=== PATIENT | female | born 1945 | race Caucasian/White ===

== ENCOUNTER 2024-02-06 16:27 | Emergency (ER) | payer MEDICARE, BC, SELFPAY ==
[2024-02-06 16:27] VITALS: BMI 24.5
[2024-02-06 16:30] VITALS: BP 130/66
[2024-02-06 17:16] LABS: % Basophils 0.2 % (0-2); % Eosinophils 1.4 % (0-6); % Immature Granulocytes 0.3 % (0-0.5); % Monocytes 6.4 % (1.7-9.3); % Neutrophils 58.7 % (42.2-75.2); Absolute Eosinophils 0.1 10^3/uL (0-0.7); Absolute Lymphocytes 2.1 10^3/uL (1.2-3.4); Absolute Monocytes 0.4 10^3/uL (0.1-0.6); Absolute Neutrophils 3.6 10^3/uL (1.4-6.5); Hematocrit 37.8 % (37.0-47.0); Hemoglobin 12.8 g/dL (12.0-16.0); Mean Corp Hgb Conc. 33.9 g/dL (33.0-37.0); Mean Corpuscular Hgb 34.2 pg (27.0-31.0); Mean Corpuscular Volume 101.1 fL (81.0-99.0); Mean Platelet Volume 10.9 fL (7.4-10.4); Nucleated Red Blood Cells % 0 %; Platelet Count 113 10^3/uL (130-400); Red Blood Cell Count 3.74 10^6/uL (4.20-5.40); Red Cell Dist. Width 12.7 % (11.5-14.5); White Blood Cell Count 6.2 10^3/uL (4.8-10.8)
[2024-02-06 17:21] LABS: Blood Urea Nitrogen 21 mg/dl (7-17); Calcium 10.3 mg/dl (8.4-10.2); Carbon Dioxide 30 mmol/L (22-30); Chloride 103 mmol/L (98-107); Glucose 154 mg/dl (70-99); Potassium 4.3 mmol/L (3.5-5.1); Sodium 139 mmol/L (135-145); eGFR > 60.00
[2024-02-06 17:28] LABS: Alcohol None Detected
[2024-02-06 19:42] LABS: Urine Albumin Negative (Neg - Trace); Urine Bilirubin Negative (Negative); Urine Character Clear (Clear); Urine Color Yellow; Urine Glucose Negative (Negative); Urine Ketone Negative (Negative); Urine Leukocyte Trace (Negative); Urine Nitrite Negative (Negative); Urine Occult Blood Negative (Negative); Urine Specific Gravity 1.015 (<1.030); Urine Urobilinogen Negative (Neg - 1+)
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
[2024-02-06 20:01] LABS: Urine Squamous Cell >30 /LPF (Few)
[2024-02-06 20:02] LABS: Urine Bacteria Few (Negative); Urine Red Blood Cell 0-2 /HPF (0-2)
[2024-02-06 20:08] LABS: Amphetamines Negative (Negative); Barbiturates Negative (Negative); Benzodiazepines Negative (Negative); Buprenorphine Negative (Negative); Cocaine Negative (Negative); Marijuana Negative (Negative); Methadone Negative (Negative); Methamphetamines Negative (Negative); Opiates Negative (Negative); Phencyclidine Negative (Negative); Tricyclic Antidepressants Negative (Negative)
[2024-02-06 20:40] VITALS: BP 126/59
[2024-02-07 08:17] VITALS: BP 141/64
--- NOTE | 2024-02-07 11:49 | CM ---
Addendum entered by Giles Solano 02/07/24 14:50:
Psychiatry evaluation noted -inpatient psychiatric level of care recommended.
CM discussed it with pt and her family and following inpatient psychiatric hospitals preferred: [facility], [facility]. [facility]. A referral to above inpatient psychiatric hospitals made.
Per MD, precision layout worker will step in to place the pt to inpatient psychiatric hospital.
CM met with Crisis team, updated them on discharge plan progress and crisis workes Maricel is assigned to pt's case.
CM met with pt and her family and they were notified on discharge plan progress.
D/C plan: Inpatient psychiatric hospital level of care.
Crisis team following. CM will sign off and will be available as needed.
Original Note:
CM following re: discharge planning.
CM consulted to assist pt with discharge planning in ED.
Reviewed pt's chart, met with pt, spoke to pt's over the phone this morning and met with him a few minutes ago, met with pt's son Elmer and daughter in Law Tabby.
Pt is an 79 year old female, arrived to ED for evaluation secondary to more frequent/worsening paranoia and visual hallucination.
Pt presents lying in the stretcher with depressed mood, sad and tearful affect, limited insight, poor judgement. Pt was not able to recall today's day, knew month and year. Pt stated: 'i love my and I thought that he is walking away from me
but actually i left him and i am here now, i love him and i missed him, can I hold your hand, i know i was not nice to you and i don not know what wrong with me'. Emotional support with reassurance offered and provided. pt went to tears saying how
much she loves her .
Pr he and his spouse live in an independent apartment at [facility], this is their second marriage and together they have 7 children from both marriages. All children live out of state and only son José lives with his family in [place]
area. Per , pt is independent in all areas [employer]. Per , pt has became very paranoid recently, feels other people are stealing from her, her has a girlfriend and she see sees that girlfriend. Per when he tried to approach
her with explanation she became annoyingly upset and even violent. Per pt's psychiatrist prescribed 1mg of Risperidone, he got meds from the pharmacy yesterday and pt did not take yet.
Per pt's son, pt definitely had OCD, undiagnosed and she was very controlling person. Per son, he is worry about her managing her medications and from other side, pt is very attached to him and she will not adjust easily to be away from him.
Both pt and her family are notified that psychiatrist will evaluate the pt to determine a level of care: inpatient psychiatric level of care or outpatient psychiatrist follow up. Pt's son stated given the fact that pt's might not be able to
manage accurately pt's behavior and medications at home he feels that inpatient psychiatric level of care might be a good idea and pt's family will relay on psychiatrist recommendations. Per son, if inpatient psychiatric hospital level of care
recommended he preferred [facility], [facility] or [facility]. per son, pt will sign 201 if needed.
Awaiting psychiatric evaluation and recommendations.
D/C plan: most likely inpatient psychiatric level of care. Awaiting for Psychiatry evaluation.
--- NOTE | 2024-02-07 13:25 | CS.PSYCHR ---
Consult Summary - Psychiatry
-
Pt is 79 yo female who presented from [facility], referred by PCP due to concern for potential elopement, agitated/trying to leave. Pt seen with son, who provided history due to pt's dementia. Pt moved there 6 weeks ago, which has
been stressful. Pt reportedly having visual hallucinations, paranoid ideation, bouts of anxiety/agitation. Pt also presents with some depression, sadness, stating she does not see her children or grandchildren as much. Pt admits to seeing
'caricatures' with faces that change, for example into pirates. Pt has some awareness that these are not real, but appears to be having difficulty discerning reality, states the VH are upsetting. Pt able to talk about the loss of her home and
belongings, had to give away items that were passed down in her family when she moved. Currently, pt is cooperative, calm, trying to answer questions, with limited ability to give relevant information.
PMH: type II Diabetes per pt
Psych Hx: diagnosed with dementia per pt's son. No other significant history. Pt was recently prescribed Risperidone 1 mg HS, but had not started taking it yet
SH: , lives with . No substance use reported
MSE: alert, oriented to self, making eye contact, pleasant this morning. Pt reports episodic visual hallucinations, no overt signs at present. Pt denies SI. Mood is sad, affect tearful at times. Insight limited
Imp: Unspecified psychotic d/o, with hallucinations
Dementia, with behavior disturbance
Unspecified Depressive d/o
Rec: will pursue Erica-psych placement- reviewed with Crisis staff; although the family does not want the pt held in ER overnight if placement is not available
will follow
[2024-02-07 16:00] LABS: COVID-19 Antigen Negative (Negative)
[2024-02-07 18:45] VITALS: BP 125/60
== END 2024-02-07 19:58 ==
LOC: EMR 16:27
PROVIDERS: Emergency Medicine; CONSULT PHYSICIAN Psychiatry & Neurology Psychiatry; EMERGENCY PHYSICIAN Emergency Medicine
DX: F03.918 Unspecified dementia, unspecified severity, with other behavioral disturbance (principal); F03.92 Unspecified dementia, unspecified severity, with psychotic disturbance; E11.9 Type 2 diabetes mellitus without complications; F32.A Depression, unspecified
CPT/HCPCS: 99284; 70450; 71046; 73060; 73090; 80048; 80306; 81003; 81015; 82077; 85025; 87811; 93005

== ENCOUNTER 2024-04-27 08:56 | Inpatient (IN) | payer MEDICARE, BC, SELFPAY ==
[2024-04-23] VITALS (14 sets, daily range): BP systolic 123–163; BP diastolic 54–84; PULSE 59; O2SAT 98; BMI 23.8; BMI 23.0
--- NOTE | 2024-04-23 08:32 | ED.GENMED ---
History of Present Illness
General
Chief Complaint: Fall
Source: patient, spouse and ambulance crew
Time Seen by Provider: 04/23/24 08:20
History of Present Illness
History of Present Illness:
79yoF with a history of dementia, atrial fibrillation on Eliquis, hypertension, hyperlipidemia, and type 2 diabetes presenting via EMS for evaluation after a fall. Patient currently resides with her at [facility]. History is
provided by her . Patient was walking to go to bed last night around 11pm-midnight. She was holding onto her and let go. She slid against the fall and fell onto the floor. states the fall seemed minor. He was unable to get up
her and let her sleep on the floor. He called family this morning around 7am and EMS was activated. She has been having frequent falls over the past week. states she seems very weak over the past few days and her dementia seems to be
worsening.
Phy Exam
Physical Exam
Physical Exam:
Patient keeps eyes closed throughout majority of exam
General Physical Exam
General Presentation: no apparent distress
General age: appears stated age
General Skin: warm and dry
General Habitus: elderly
General Mental: alert
ENT Exam
Additional ENT: No external signs of head trauma
Eye Exam
Eye Exam: PERRL
Cardiovascular Exam
Cardiovascular Exam: regular rate/rhythm and no edema
Pulmonary Exam
Pulmonary Exam: lungs clear, no respiratory distress, no crackles and no wheezing
Gastrointestinal Exam
Gastrointestinal Exam: non tender, soft and non distended
Johnson Coma Scale
Eye Opening: Spontaneous
Verbal Response: Confused
Motor Response: Obeys Commands
GCS Total Score: 14
Musculoskeletal Exam
Musculoskeletal Exam: other (No C/T/L spine tenderness)
Skin Exam
Skin Exam: other (Ecchymosis noted to R upper arm and L forearm)
Course
Orders/Labs/Results
Orders:
Orders
04/23/24 Breakfast
Cholesterol Lowering
At Your Request: Non-Participating
Cholesterol Lowering: Sodium, 2 Gram
04/23/24 08:29
Electrocardiogram (*1) Urgent
Reason for Study: Other
Other Reason for Exam: fall
CT Cervical Spine W/o Iv Contr Urgent
Comment:
Reason For Exam: Unwitnessed fall
Cardiac Monitoring- Treatment ONCE
EKG- Treatment ONCE
CR Humerus - Left Min 2 Views* Urgent
Comment:
Reason For Exam: fall
CR Humerus - Right Min 2 View* Urgent
Comment:
Reason For Exam: fall
Forearm, Left 2 View [CR Forearm - Left 2 View] Urgent
Comment:
Reason For Exam: fall
Forearm, Right 2 View [CR Forearm - Right 2 View] Urgent
Comment:
Reason For Exam: fall
04/23/24 08:30
CR Chest - 2 Views Urgent
Comment:
Reason For Exam: Unwitnessed fall
04/23/24 08:47
CT Head W/o Iv Contrast Urgent
Comment:
Reason For Exam: Unwitnessed fall
04/23/24 08:55
Complete Blood Count/With Diff Urgent
Comprehensive Metabolic Panel Urgent
TSH Reflex To Free T4 Urgent
Comment: ADD ON
Total CK [Creatine Phosphokinase] Urgent
Troponin I Urgent
Urinalysis Reflex To Culture Urgent
Date Specimen was Collected: 04/23/24
Time Specimen was Collected: 08:54
Urine Microscopic Reflex Cult Urgent
Urine Culture Urgent
CHELSEA Source: U
Specimen Description:
Date Specimen was Collected: 04/23/24
Time Specimen was Collected: 08:54
04/23/24 10:10
Case Management Consult ONCE
Case Management Consult: Discharge Planning
Pt Eval And Treat Urgent
Activity Level: Out of Bed- Ad Dianne
04/23/24 11:44
Cephalexin Monohydrate [Keflex] 500 mg PO NOW STA
04/23/24 15:34
Admit/Transfer Patient As Directed
Co-Sign Provider:
Level of Care: Observation services
Assign to:: Medical/Surgical
Physician / Group: teresaricha/medicine
Diagnosis: fall/placement
Expected length of stay greater than two midnights?: Yes
ELOS- Estimated Length of Stay in days: 3
I certify the patient meets the requirements for IP care: Yes
PRN Pain Medication Management As Directed
May give lesser potent ordered pain med per pt: Yes
preference::
Protocol:: Medication orders for pain may be administered in a
manner that supports deferring to patient preference
when the pt is:
- Requesting an ordered lesser potent pain medication.
Least to most potent pain medications are defined
as: acetaminophen < NSAID < tramadol < opioids
(morphine, oxycodone, hydromorphone).
- Requesting a lesser dose of the same medication IF
ORDERED.
- Requesting a less intrusive route of administration
if both routes are prescribed by the provider (PO <
IV).
04/23/24 15:38
UA Reflex to Culture [Urinalysis Reflex To Culture] Urgent
Straight Cath As Directed
Frequency: One time now
04/23/24 15:43
Code Status As Directed
Resuscitation Status: Full Code
04/23/24 15:57
Add On- LAB Routine
Tests Added?: cpk
04/23/24 15:58
Add On- LAB Routine
Tests Added?: tsh with reflex free t4
04/23/24 17:13
Bisacodyl [Dulcolax] 10 mg RECTAL [id number] PRN
Docusate W/Senna [Senokot-S] 1 tablet PO BIDPRN PRN
Insulin Aspart Corrective Low [Novolog Flexpen-Low Resistance] See Protocol SC AC
Lactated Ringers [Lr] 1,000 ml IV 75 mls/hr
Polyethylene Glycol Powder [Miralax] 17 grams PO DAILYPRN PRN
04/23/24 17:13
COVID-19 Antigen Routine
Source: Nasal Swab
TSH Reflex To Free T4 Routine
Activity As Directed
Activity Level: As Tolerated
Vital Signs As Directed
Frequency: Per unit guidelines
Ot Eval And Treat Routine
Pt Eval And Treat Routine
Activity Level: As Tolerated
04/23/24 17:19
Clonazepam [Klonopin] 0.25 mg PO BIDPRN PRN
04/23/24 20:00
Apixaban [Eliquis] 5 mg PO BID
Risperidone [Risperdal] 1 mg PO BID
04/23/24 22:00
Atorvastatin [Lipitor] 40 mg PO HS
04/24/24 06:00
Complete Blood Count/No Diff IN AM
Comprehensive Metabolic Panel IN AM
Magnesium IN AM
04/24/24 08:00
Atenolol [Tenormin] 50 mg PO DAILY
Lisinopril [Zestril] 5 mg PO DAILY
Metformin Extended Release [Glucophage Xr Extended Release] 1,000 mg PO DAILY
Abnormal Lab Results
04/23/24
08:55
WBC 3.4 L 10^3/uL
(4.8-10.8)
RBC 3.56 L 10^6/uL
(4.20-5.40)
Hct 33.7 L %
(37.0-47.0)
MCH 33.7 H pg
(27.0-31.0)
Plt Count 94 L 10^3/uL
(130-400)
Absolute Lymphs (auto) 0.8 L 10^3/uL
(1.2-3.4)
Eosinophils % 6.6 H %
(0-6)
Carbon Dioxide 34 H mmol/L
(22-30)
Glucose 268 H mg/dl
(70-99)
Total Protein 5.5 L g/dl
(6.3-8.2)
Albumin 3.4 L g/dl
(3.5-5.0)
Leukocyte Esterase Rfl 2+ A
(Negative)
Urine RBC 3-6 A /HPF
(0-2)
Urine WBC (Reflex) 11-15 A /HPF
(0-5)
Urine Bacteria (Reflex) Few A
(Negative)
Urine Glucose 3+ A
(Negative)
04/23/24 08:55
04/23/24 08:55
Vital Signs
Initial and Last Documented VS:
Initial Vital Signs
Pulse Resp
69 14
04/23/24 08:25 04/23/24 08:25
Last Documented Vital Signs
Temp Pulse Resp BP Pulse Ox
97.8 F 80 17 149/66 99
04/23/24 17:25 04/23/24 17:25 04/23/24 17:25 04/23/24 17:25 04/23/24 17:25
MDM/Problems Addressed
Differential Diagnosis Includes:
79yoF here after a fall last night. Patient on the floor all night. Frequent falls over the past 1-2 weeks. Hx of dementia. She is afebrile and hemodynamically stable. She is alert and answers questions on exam. Ecchymosis noted to bilateral arms.
No other injuries seen on exam. Differential diagnosis includes but is not limited to: progression of dementia, ambulatory dysfunction, UTI, rhabdomyolysis
Initial ED plan: Check cardiac labs, CK, UA, EKG, bilateral arm x-rays, CT head, and CT cervical spine.
*EKG
Interpreted by ED Provider?: Yes
EKG Intrepretation Date: 04/23/24
EKG Intrepretation Time: 08:50
Heart Rate: 56
Rate: bradycardiac
Rhythm: sinus
Knox: normal axis
Interval: normal interval
QRS Pattern: normal QRS
Ischemia: no ischemia
*Critical Care Note
Total Time (30-74mins, 75-104mins- exclusive of procedures): Not Applicable
Update Note
Update Note:
No traumatic injuries seen on imaging. Labs unremarkable including normal CK. UA with 2+ leukocytes and dose of Keflex ordered. Patient evaluated by physical therapy who recommend SNF placement. Case management unable to place patient and she was
admitted for further management.
ED Attending Note
-
Portions of this chart may have been created with voice recognition software.� Occasional wrong word or��sound alike� substitutions may have occurred due to the inherent limitations of voice recognition software.
Discharge Plan
Departure
Patient Disposition: Admit
Date of Disposition: 04/23/24
Time of Disposition: 13:02
Presentation/result/management discussed w/ accepting MD/DO: Hospitalist
Discharge Problem:
Generalized weakness, Frequent falls
Interventions
Interventions:
*Risk Screen - Suicide Last Done: 04/23/24 08:42
*General Assessment Last Done: 04/23/24 08:40
*Neglect/Abuse Screening Last Done: 04/23/24 08:40
ED- Fall Risk Assessment Last Done: 04/23/24 15:35
*ED COVID-19 Vaccine History Last Done: 04/23/24 08:40
*Nursing Disposition Last Done: 04/23/24 17:14
ED-Musculoskeletal Assessment Last Done: 04/23/24 09:23
ED- Neurological Assessment Last Done: 04/23/24 09:23
ED-Skin Assessment Last Done: 04/23/24 09:23
Discharge Date and Time
Discharge Date/Time: 04/23/24 17:10
[2024-04-23 09:10] LABS: Urine Albumin Negative (Neg - Trace); Urine Bilirubin Negative (Negative); Urine Character Clear (Clear); Urine Color Yellow; Urine Glucose 3+ (Negative); Urine Ketone Negative (Negative); Urine Leukocyte 2+ (Negative); Urine Nitrite Negative (Negative); Urine Occult Blood Negative (Negative); Urine Specific Gravity 1.015 (<1.030); Urine Urobilinogen Negative (Neg - 1+)
[2024-04-23 09:24] LABS: % Basophils 0.3 % (0-2); % Eosinophils 6.6 % (0-6); % Immature Granulocytes 0.3 % (0-0.5); % Lymphocytes 22.7 % (20.5-51.1); % Monocytes 6.9 % (1.7-9.3); % Neutrophils 63.2 % (42.2-75.2); Absolute Eosinophils 0.2 10^3/uL (0-0.7); Absolute Lymphocytes 0.8 10^3/uL (1.2-3.4); Absolute Monocytes 0.2 10^3/uL (0.1-0.6); Absolute Neutrophils 2.1 10^3/uL (1.4-6.5); Hematocrit 33.7 % (37.0-47.0); Mean Corp Hgb Conc. 35.6 g/dL (33.0-37.0); Mean Corpuscular Hgb 33.7 pg (27.0-31.0); Mean Corpuscular Volume 94.7 fL (81.0-99.0); Mean Platelet Volume 10.4 fL (7.4-10.4); Nucleated Red Blood Cells % 0 %; Platelet Count 94 10^3/uL (130-400); Red Blood Cell Count 3.56 10^6/uL (4.20-5.40); Red Cell Dist. Width 13.2 % (11.5-14.5); White Blood Cell Count 3.4 10^3/uL (4.8-10.8)
[2024-04-23 09:27] LABS: Urine Squamous Cell 16-20 /LPF (Few)
[2024-04-23 09:29] LABS: Urine Bacteria Few (Negative)
[2024-04-23 09:34] LABS: ALT (SGPT) 22 U/L (0-35); AST (SGOT) 26 U/L (14-36); Albumin 3.4 g/dl (3.5-5.0); Alkaline Phosphatase 107 U/L (38-126); Blood Urea Nitrogen 16 mg/dl (7-17); Calcium 10.1 mg/dl (8.4-10.2); Carbon Dioxide 34 mmol/L (22-30); Chloride 100 mmol/L (98-107); Estimated Creatinine Clearance 57 ml/min; Glucose 268 mg/dl (70-99); Potassium 4.2 mmol/L (3.5-5.1); Sodium 139 mmol/L (135-145); Total Bilirubin 1.2 mg/dl (0.2-1.3); Total Protein 5.5 g/dl (6.3-8.2); eGFR > 60.00
[2024-04-23 09:45] LABS: Creatine Phosphokinase 92 U/L (30-135)
[2024-04-23 09:46] LABS: Troponin I < 0.012 ng/ml
[2024-04-23] MEDS: KEFLEX 500 MG PO (12:00)
--- NOTE | 2024-04-23 12:51 | CM ---
CM consulted in ED for dc planning
Per PT eval- SNF recommendations
Bedside meeting with pt and her spouse
She slept through meeting- spouse deferred planning to her son/POA Chris
Call with Chris/son POA [phone]
Pt and her second reside at [facility]
She is typically independent with use of a SPC/WW as needed
Pt with dementia and recent dixon-psych stay at [facility] for in January 2024, unsure of 201 vs 302
She is set up with a community housing counselor
Pt has a private duty biztalk developer, family with plans to increase to ENVIRONMENTAL MARKETER while LT plans are implementedfor a higher level of care
Of note, spouse is step-father to her sons
Family requesting SNF be arranged. spouse unable to provide adequate care at home due to cognition and physical limitations
Aware likely will be private pay as pt without qualifying stay
PASRR screen completed
Pt also does not qualify for 30 day exception from ED or OBS status, will require level II
Son aware and provided verbal consents for evaluation
Update to Dr Belle/Carlita ED PA
Referral sent via [facility] to [facility]
Psych eval requested for level II assessment
Discharge Disposition- [facility] pending bed availability private pay, level II assessment pending
--- NOTE | 2024-04-23 15:50 | HPS.HSE ---
Family Physician
-
Family Physician: PHYSICIAN PRIVATE
Chief Complaint
-
falls
History of Present Illness
79-year-old female with past medical history of dementia, atrial fibrillation on Eliquis, hypertension, hyperlipidemia, type 2 diabetes presenting after fall. Patient is independent living. As per , patient was walking to the bed last night
while holding onto her and let go. Patient subsequently slid and fell onto the floor. No obvious head strike. was unable to left patient from the floor and therefore let her sleep on the floor. EMS was called this morning the
patient was subsequently sent to the hospital. Of note, frequent falls of the last week, appears to be more weaker and her dementia may be worsening as per . No obvious urinary symptoms although patient history is unremarkable. Labs
grossly unremarkable. UA unequivocal, dirty sample. Head CT unremarkable for acute pathology. No acute findings on radiologic imaging. No obvious fractures.
Medical History
Past Medical History
Past Medical History: Reports Other
Additional Past Medical History:
dementia, atrial fibrillation on Eliquis, hypertension, hyperlipidemia, type 2 diabetes presenting after fall.
Past Surgical History: Reports None and Other
Social History
Tobacco: Non-smoker
Alcohol: None
Drug: None
Personal:
Living: With Family
Employment: Not Employed
Family History
Family History: Not pertinent
Allergies / Home Medications
Allergies reflects when Allergies were last updated in [facility].
Home Medications with original date entered in [facility]
Allergy/Medication List:
Allergies
Allergy/AdvReac Type Severity Reaction Status Date / Time
No Known Allergies Allergy Verified 04/23/24 08:23
Home Medications
apixaban 5 mg tablet (Eliquis) 5 mg PO BID Blood Clot Prevention/Tx 04/23/24
atenolol 50 mg tablet 50 mg PO DAILY Blood Pressure 04/23/24
atorvastatin 40 mg tablet (Lipitor) 40 mg PO HS High Cholesterol 04/23/24
clonazepam 0.5 mg tablet 0.25 mg PO BIDPRN PRN anxiety 04/23/24
lisinopril 5 mg tablet 5 mg PO DAILY Blood Pressure 04/23/24
metformin 500 mg tablet,extended release 24 hr 1,000 mg PO DAILY Diabetes 04/23/24
omeprazole 20 mg tablet,delayed release 20 mg PO DAILY Gastrointestinal Issue 04/23/24
risperidone 1 mg tablet (Risperdal) 1 mg PO BID Mental Health 04/23/24
Review of Systems
-
Unable to obtain full review of systems at this time due to: Dementia
History Source: Patient
A 12 point ROS was completed and negative except as noted: No
Physical Exam
Vital Signs
Vital Signs
Temp Pulse Resp BP Pulse Ox
97.8 F 82 20 149/66 97
04/23/24 08:30 04/23/24 15:15 04/23/24 15:15 04/23/24 15:05 04/23/24 15:15
Physical Exam
General: Well Developed, Well Nourished and No Apparent Distress
HEENT: NormoCephalic and Anicteric
Respiratory: Clear
Cardiac: S1/S2
GI: Soft and Non Tender
Musculoskeletal: No Clubbing
Skin: Warm
Neuro: Awake, Alert, Oriented and AO x 3
Hematologic/Lymphatic: No Lymphadenopathy
Psych: Calm
Laboratory Results
-
04/23/24 08:55
04/23/24 08:55
Laboratory Results
Total Bilirubin 1.2 mg/dl (0.2-1.3) 04/23/24 08:55
AST 26 U/L (14-36) 04/23/24 08:55
ALT 22 U/L (0-35) 04/23/24 08:55
Alkaline Phosphatase 107 U/L (38-126) 04/23/24 08:55
Troponin I < 0.012 ng/ml 04/23/24 08:55
Data Reviewed
-
Diagnostic Radiology: Image Personally Visualized and interpreted and Report Reviewed by me
CT Scan: Image Personally Visualized and interpreted
Impression/Plan
-
IMPRESSION:
79-year-old female with past medical history of dementia, atrial fibrillation on Eliquis, hypertension, hyperlipidemia, type 2 diabetes presenting after fall.
PLAN:
#Fall
-no fracture
-most likely 2/2 to worsening dementia
-add on cpk
-F/u TFTs
-F/u UA with straight cath, doubt UTI
-hold on abx at this time
-PT/OT
-orthostatics
#Afib
cont atenolol, eliquis
#HLD
#Hypertension
#DM
-cont statin, ACEI
-hold metformin, add on AISS
#Dementia
-cont risperidone, clonezam prn
#DVT ppx
-Eliquis
[2024-04-23 17:22] LABS: TSH Reflex To Free T4 0.97 uIU/ml (0.47-4.68)
--- NOTE | 2024-04-23 17:46 | PTCARENOTE ---
Received pt from ED at 17:25. Pt pulled over from stretcher to bed w/o incident. LR@75ml/hr started upon arrival. Pt AAOx2, in room and able to assist with answering admission questions. Pt assessed, VSS, call head and belongings within
reach.
[2024-04-23 17:50] LABS: Glucose - Point of Care 215 mg/dl (70-99)
[2024-04-23] MEDS: LR 1000 IV (17:56)
[2024-04-23] MEDS: NOVOLOG FLEXPEN-LOW RESISTANCE 2 UNITS SC (17:56)
[2024-04-23 19:48] LABS: COVID-19 Antigen Negative (Negative)
[2024-04-23 19:56] LABS: Urine Albumin Negative (Neg - Trace); Urine Bilirubin Negative (Negative); Urine Character Clear (Clear); Urine Color Yellow; Urine Glucose 1+ (Negative); Urine Ketone 1+ (Negative); Urine Leukocyte 1+ (Negative); Urine Nitrite Negative (Negative); Urine Occult Blood Negative (Negative); Urine Urobilinogen 2+ (Neg - 1+)
[2024-04-23 20:18] LABS: Urine Mucus Few; Urine Red Blood Cell 0-2 /HPF (0-2); Urine Yeast Few (Negative)
[2024-04-23] MEDS: RISPERDAL 1 MG PO (20:24)
[2024-04-23] MEDS: ELIQUIS 5 MG PO (20:24)
[2024-04-23] MEDS: LIPITOR 40 MG PO (20:25)
[2024-04-23] MEDS: KLONOPIN 0.25 MG PO (20:37)
--- NOTE | 2024-04-23 22:12 | PTCARENOTE ---
Pt become very agitated and anxious and refused medication around 20:00. Tried to clam pt down by assessing for pain, reality orientation and calling . Med-sitter was placed in pt's room and PRN Klonopin was given 20:37. Reached out to ROSA
about pt and dixon-chair was ordered at 21:47 due to pt not staying in the bed and pt being a high fall risk.
[2024-04-23 22:21] LABS: Glucose - Point of Care 251 mg/dl (70-99)
[2024-04-24] VITALS (7 sets, daily range): BP systolic 132–164; BP diastolic 63–92; PULSE 76–91; O2SAT 97; BMI 23.5
[2024-04-24 06:25] LABS: Hematocrit 31.8 % (37.0-47.0); Hemoglobin 11.8 g/dL (12.0-16.0); Mean Corp Hgb Conc. 37.1 g/dL (33.0-37.0); Mean Corpuscular Hgb 34.3 pg (27.0-31.0); Mean Corpuscular Volume 92.4 fL (81.0-99.0); Mean Platelet Volume 10.4 fL (7.4-10.4); Platelet Count 93 10^3/uL (130-400); Red Blood Cell Count 3.44 10^6/uL (4.20-5.40); Red Cell Dist. Width 13.2 % (11.5-14.5); White Blood Cell Count 4.1 10^3/uL (4.8-10.8)
[2024-04-24 06:32] LABS: ALT (SGPT) 22 U/L (0-35); AST (SGOT) 32 U/L (14-36); Albumin 3.3 g/dl (3.5-5.0); Alkaline Phosphatase 100 U/L (38-126); Blood Urea Nitrogen 15 mg/dl (7-17); Calcium 9.8 mg/dl (8.4-10.2); Carbon Dioxide 29 mmol/L (22-30); Chloride 102 mmol/L (98-107); Estimated Creatinine Clearance 66 ml/min; Glucose 246 mg/dl (70-99); Magnesium 1.6 mg/dl (1.6-2.3); Potassium 4.1 mmol/L (3.5-5.1); Sodium 138 mmol/L (135-145); Total Bilirubin 1.4 mg/dl (0.2-1.3); Total Protein 5.4 g/dl (6.3-8.2); eGFR > 60.00
[2024-04-24 07:20] LABS: Glucose - Point of Care 245 mg/dl (70-99)
[2024-04-24] MEDS: GLUCOPHAGE XR EXTENDED RELEASE 1000 MG PO (07:52)
[2024-04-24] MEDS: RISPERDAL 1 MG PO ×2 (07:52→20:02)
[2024-04-24] MEDS: ELIQUIS 5 MG PO ×2 (07:53→20:02)
[2024-04-24] MEDS: ZESTRIL 5 MG PO (07:53)
[2024-04-24] MEDS: TENORMIN 50 MG PO (07:54)
[2024-04-24] MEDS: LR 1000 IV ×2 (07:56→21:40)
[2024-04-24] MEDS: NOVOLOG FLEXPEN-LOW RESISTANCE 2 UNITS SC (07:57)
[2024-04-24] MEDS: KLONOPIN 0.25 MG PO (11:35)
[2024-04-24 12:43] LABS: Glucose - Point of Care 356 mg/dl (70-99)
[2024-04-24] MEDS: NOVOLOG FLEXPEN-LOW RESISTANCE 5 UNITS SC (12:46)
--- NOTE | 2024-04-24 13:52 | W.PN.HOSP.TC ---
Today's Communication/Plan
-
dc ready -cm ready
Assessment / Plan
Assessment / Plan
Physical Exam
General: Well Developed, Well Nourished and No Apparent Distress
HEENT: NormoCephalic and Anicteric
Respiratory: Clear
Cardiac: S1/S2
GI: Soft and Non Tender
Musculoskeletal: No Clubbing
Skin: Warm
Neuro: Awake, Alert, Oriented and AO x 3
Hematologic/Lymphatic: No Lymphadenopathy
Psych: Calm
79-year-old female with past medical history of dementia, atrial fibrillation on Eliquis, hypertension, hyperlipidemia, type 2 diabetes presenting after fall.
PLAN:
#Fall
-no fracture
-most likely 2/2 to worsening dementia
-CPK wnl
-F/u TFTs
-F/u UA with straight cath, doubt UTI - cultures negative
-PT/OT
#Afib
cont atenolol, eliquis
#HLD
#Hypertension
#DM
-cont statin, ACEI
-hold metformin, add on AISS
-add on a1c
#Dementia
-cont risperidone, clonezam prn
#DVT ppx
-Eliquis
Anticipated Discharge: Within 24 hours
Subjective/Interval History
-
Date of Service: April 24, 2024
No acute events overnight
Objective Data
-
Labs:
Laboratory Results
04/24/24
05:47
WBC 4.1 L
Hgb 11.8 L
Hct 31.8 L
Plt Count 93 L
Sodium 138
Potassium 4.1
Chloride 102
Carbon Dioxide 29
BUN 15
Creatinine 0.6
Glucose 246 H
Calcium 9.8
Total Bilirubin 1.4 H
AST 32
ALT 22
Alkaline Phosphatase 100
Vital Signs:
Vital Signs
Temp Pulse Resp BP Pulse Ox
97.8 F 77 16 164/80 97
04/24/24 11:14 04/24/24 11:14 04/24/24 11:14 04/24/24 11:14 04/24/24 11:14
Review of Systems
-
History Source: Patient
All other systems: Not reviewed unless documented
Data Reviewed
-
Diagnostic Radiology: Image personally visualized and interpreted and Report Reviewed by me
CT Scan: Image personally visualized and interpreted and Report Reviewed by me
Labs: Labs Reviewed by me
--- NOTE | 2024-04-24 14:33 | CM ---
Case management following for discharge planning
Received call from pts son Chris Vasquez, POA [phone]. Updated of plan to fax clinical info to [facility] to schedule Level 2 eval
Clinicals faxed to [phone], [facility]. Psych eval pending
Will update pts son when appt scheduled
Plan - anticipate snf after level 2 assessment completed
[2024-04-24 16:21] LABS: Glucose - Point of Care 253 mg/dl (70-99)
[2024-04-24] MEDS: NOVOLOG FLEXPEN-MODERATE RESISTANCE 5 UNITS SC (17:01)
[2024-04-24] MEDS: LIPITOR 40 MG PO (21:37)
[2024-04-25 06:00] VITALS: BMI 23.3
[2024-04-25 06:26] LABS: Hematocrit 32.7 % (37.0-47.0); Hemoglobin 12.1 g/dL (12.0-16.0); Mean Corpuscular Hgb 34.2 pg (27.0-31.0); Mean Corpuscular Volume 92.4 fL (81.0-99.0); Mean Platelet Volume 10.1 fL (7.4-10.4); Platelet Count 93 10^3/uL (130-400); Red Blood Cell Count 3.54 10^6/uL (4.20-5.40); Red Cell Dist. Width 13.2 % (11.5-14.5); White Blood Cell Count 4.8 10^3/uL (4.8-10.8)
[2024-04-25 07:21] LABS: Blood Urea Nitrogen 11 mg/dl (7-17); Calcium 9.7 mg/dl (8.4-10.2); Carbon Dioxide 31 mmol/L (22-30); Chloride 101 mmol/L (98-107); Estimated Creatinine Clearance 66 ml/min; Glucose 229 mg/dl (70-99); Potassium 4.2 mmol/L (3.5-5.1); Sodium 137 mmol/L (135-145); eGFR > 60.00
[2024-04-25 07:22] LABS: Glucose - Point of Care 251 mg/dl (70-99)
[2024-04-25 07:55] LABS: Glycohemoglobin (HgbA1c) 10.2 % (4.0-5.6)
[2024-04-25 08:23] VITALS: BP 150/68
[2024-04-25] MEDS: KLONOPIN 0.25 MG PO (08:43)
[2024-04-25] MEDS: TENORMIN 50 MG PO (08:44)
[2024-04-25] MEDS: GLUCOPHAGE XR EXTENDED RELEASE 1000 MG PO (08:44)
[2024-04-25] MEDS: RISPERDAL 1 MG PO (08:44)
[2024-04-25] MEDS: ELIQUIS 5 MG PO ×2 (08:44→21:25)
[2024-04-25] MEDS: ZESTRIL 5 MG PO (08:45)
[2024-04-25] MEDS: NOVOLOG FLEXPEN-MODERATE RESISTANCE 3 UNITS SC (08:45)
[2024-04-25 12:00] LABS: Glucose - Point of Care 321 mg/dl (70-99)
[2024-04-25] MEDS: LR 1000 IV (13:01)
[2024-04-25] MEDS: NOVOLOG FLEXPEN-MODERATE RESISTANCE 7 UNITS SC (13:03)
--- NOTE | 2024-04-25 13:31 | CON.MD ---
Consultation - Medical
-
patient seen chart reviewed. patient is an 80 year old woman who lives w her at [place] and was admitted with increasing weakness, shortness of breath after a fall. reports increasing weakness and dementia . she is taking risperdal
one mg bid presumably for behavioral disturbance of dementia. level two assessment was requested as patient being referred for snf. while the patient had been fairly independent despite dementia in january of this year she was hospitalized
psychiatrically and dc to the care of a psych restaurant cook. the patient can provide no information. she could not provide me with her first name although she did acknowledge she was 'mrs lebron'. she would mutter words that were not germane to the
questions i was asking. she has been prescribed risperdal one mg bid. the patient has had a moment here and there of agitation but was able to be calmed without medication. she has a med sitter in her room currently but when i saw her was
peacefully lying in bed . i attempted to call her but he asked me to call her son since he is hard of hearing and could not understand me. i called her son but no response left message.
past psych hx dementia see above
medical hx patient w hx falls, shortness of breath. maybe mild heart failure. synthroid increased recently . hx osteoporosis gerd ibs dvt hld cva htn gastric ca in 2019 cholelithiasis mild anemia (hgb 11.3) bun(41) and cr (1.4)
cat brain no acute cat lung no pe
fh non contributory
substance abuse none
social resides at [facility] w . has a obgyn nurse but family considering home health aide or possibly alternative arrangement. snf being considered how
mse patient lying in bed quietly except for muttering words when asked a question that have little relation to the question. mood is neutral affect constricted significant cognitive impairment cannot tell me her first name but acknowledged her
last. insight judgment lacking
dx dementia w behavioral disturbance, currently calm
recommendation patient seems to be stable currently on risperdal. nursing is able to care for her without incident and the one time it is recorded that she was upset she was calmed with verbal intervention. no need for change in current
medication at some point if she remains stable consider very slowly cutting back on risperdal dosage. psych signing off.
--- NOTE | 2024-04-25 13:33 | W.PN.HOSP.TC ---
Today's Communication/Plan
-
psych eval
start lantus, monitor glucose levels
Assessment / Plan
Assessment / Plan
Physical Exam
General: Well Developed, Well Nourished and No Apparent Distress
HEENT: NormoCephalic and Anicteric
Respiratory: Clear
Cardiac: S1/S2
GI: Soft and Non Tender
Musculoskeletal: No Clubbing
Skin: Warm
Neuro: Awake, Alert, Oriented and AO x 3
Hematologic/Lymphatic: No Lymphadenopathy
Psych: Calm
79-year-old female with past medical history of dementia, atrial fibrillation on Eliquis, hypertension, hyperlipidemia, type 2 diabetes presenting after fall.
PLAN:
#Fall
-no fracture
-most likely 2/2 to worsening dementia
-CPK wnl
-F/u TFTs
-F/u UA with straight cath, doubt UTI - cultures negative
-PT/OT
#Afib
cont atenolol, eliquis
#HLD
#Hypertension
#DM
-cont statin, ACEI
-metformin, add on AISS
-add on a1c - 10.2
-start lantus 6uqhs, moderate sliding scale
#Dementia
-cont risperidone, clonezam prn
-psych had to be consulted for level 2 eval
#DVT ppx
-Eliquis
Anticipated Discharge: Within 24 hours
Subjective/Interval History
-
Date of Service: April 25, 2024
No acute events
Objective Data
-
Labs:
Laboratory Results
04/25/24
06:06
WBC 4.8
Hgb 12.1
Hct 32.7 L
Plt Count 93 L
Sodium 137
Potassium 4.2
Chloride 101
Carbon Dioxide 31 H
BUN 11
Creatinine 0.6
Glucose 229 H
Calcium 9.7
Vital Signs:
Vital Signs
Temp Pulse Resp BP Pulse Ox
98.0 F 77 16 150/68 96
04/25/24 08:23 04/25/24 08:23 04/25/24 08:23 04/25/24 08:23 04/25/24 08:23
I&O
04/24/24 04/25/24 04/26/24
06:59 06:59 06:59
Intake Total 1380 / 1380
Balance 1380 / 1380
Review of Systems
-
History Source: Patient
All other systems: Not reviewed unless documented
Data Reviewed
-
Diagnostic Radiology: Image personally visualized and interpreted and Report Reviewed by me
CT Scan: Image personally visualized and interpreted and Report Reviewed by me
Labs: Labs Reviewed by me
--- NOTE | 2024-04-25 14:23 | CON.MD ---
Consultation - Medical
-
patient is an 79 year old woman who comes to after falling. this is not the first time she has fallen and reports he sees her as becoming weaker and her mental status declining further.. falling increased in frequency since january admit
to psych. they reside at [place]. she has a slot router . the family is thinking she may need more supervision eg a geneticist and in the meantime are considering snf . a level two is required for this referral as patient hospitalized psychiatrically in january
2023 for behavioral disturbance assoc'd w dementia and was placed on risperdal one mg bid. the patient was not able to give me any history. she could not tell me her first name but did nod when i asked her if she were 'mrs lebron'. i
called her who told me he has a hearing problem and could not hear me. he suggested i call his son who did not supervisor picking crew so i left a message. patient noted to have significant cogwheeling rigidty likely secondary to risperdal nursing tells
me patient cries out at times but has not required prn. she responds to staff verbal interventions
past psych hx see above
medical hx admitted for a fall. rhabdomyolysis hx uti hx a fibrillation htn hld niddm cat scan shows no acute changes ecg w bradycaria qtc is normal. eps likely secondary to risperdal but could also be PD
family hx no contributory
substance abuse none
social resides with at [place] has a slot router to help her.
mse patient lying quietly. occasionally mutters words but the words are not germane to the conversation one is attempting to have with her. mood is neutral affect bland no overt psychosis patient's cognition very impaired. she cannot answer any
questions including giving her first name insight judgment impaired
dx dementia w hx of behavioral disturbance cognwheeling rigidty wrists secondary likely to risperdal
recommendations this is a fairly high dose of risperdal in an elderly lady hence eps is not a surprise. would stop risperdal add cogentin o.5 mg bid to start. consider neuro evaluation if it does not resolved. seroquel prn agitation which has
less tendency to cause eps. this may be the reason for increased falling psych will follow.
[2024-04-25 15:48] VITALS: BP 144/69
--- NOTE | 2024-04-25 15:56 | CM ---
Case management following for discharge planning
Chart reviewed
Received call from pts son/POAChris. Pt has a Living Will and Health Care Power of Head Loader - requested email to send and be placed in pts chart
Email received with document. switchboard clerk placed in pts chart
Psych eval completed - sent to [facility] via fax - [phone]
Awaiting call back from [facility]
Plan - anticipate snf after level 2 assessment completed
[2024-04-25 16:29] LABS: Glucose - Point of Care 262 mg/dl (70-99)
[2024-04-25 17:06] VITALS: BP 162/89; PULSE 91; O2SAT 95
[2024-04-25] MEDS: NOVOLOG FLEXPEN-MODERATE RESISTANCE 5 UNITS SC (18:16)
[2024-04-25] MEDS: COGENTIN 0.5 MG PO (21:25)
[2024-04-25] MEDS: LIPITOR 40 MG PO (21:25)
[2024-04-25 21:26] LABS: Glucose - Point of Care 223 mg/dl (70-99)
[2024-04-25] MEDS: LANTUS 0.06 UNITS SC (21:26)
[2024-04-25 23:30] VITALS: BP 117/52
[2024-04-26 07:06] LABS: Glucose - Point of Care 268 mg/dl (70-99)
[2024-04-26 07:27] VITALS: BP 138/64
[2024-04-26] MEDS: ELIQUIS 5 MG PO ×2 (10:01→20:32)
[2024-04-26] MEDS: COGENTIN 0.5 MG PO ×3 (10:01→21:30)
[2024-04-26] MEDS: ZESTRIL 5 MG PO (10:01)
[2024-04-26] MEDS: TENORMIN 50 MG PO (10:01)
[2024-04-26] MEDS: NOVOLOG FLEXPEN-MODERATE RESISTANCE 5 UNITS SC (10:02)
[2024-04-26] MEDS: GLUCOPHAGE XR EXTENDED RELEASE 1000 MG PO (10:02)
[2024-04-26] MEDS: SEROQUEL 12.5 MG PO (10:08)
[2024-04-26] MEDS: KLONOPIN 0.25 MG PO (10:08)
[2024-04-26 12:00] LABS: Glucose - Point of Care 217 mg/dl (70-99)
--- NOTE | 2024-04-26 12:50 | W.PN.HOSP.TC ---
Today's Communication/Plan
-
increase lantus
lipid panel
appreciate psych assistance
dc ready, cm aware
Assessment / Plan
Assessment / Plan
Physical Exam
General: Well Developed, Well Nourished and No Apparent Distress
HEENT: NormoCephalic and Anicteric
Respiratory: Clear
Cardiac: S1/S2
GI: Soft and Non Tender
Musculoskeletal: No Clubbing
Skin: Warm
Neuro: Awake, Alert, Oriented and AO x 3
Hematologic/Lymphatic: No Lymphadenopathy
Psych: Calm
79-year-old female with past medical history of dementia, atrial fibrillation on Eliquis, hypertension, hyperlipidemia, type 2 diabetes presenting after fall.
PLAN:
#Fall
-no fracture
-most likely 2/2 to worsening dementia
-CPK wnl
-F/u TFTs
-F/u UA with straight cath, doubt UTI - cultures negative
-PT/OT
#Afib
cont atenolol, eliquis
#HLD
#Hypertension
#DM
-cont statin, ACEI
-metformin, add on AISS
-add on a1c - 10.2
-F/u Lipid panel
-start lantus 10uqhs, moderate sliding scale
#Dementia
-stopped risperidone,
-Cont clonezam prn
-psych had to be consulted for level 2 eval
#DVT ppx
-Eliquis
Anticipated Discharge: Within 24 hours
Subjective/Interval History
-
Date of Service: April 26, 2024
No acute events overnight
Objective Data
-
Vital Signs:
Vital Signs
Temp Pulse Resp BP Pulse Ox
98.1 F 79 16 138/64 96
04/26/24 07:27 04/26/24 07:27 04/26/24 07:27 04/26/24 07:27 04/26/24 07:27
I&O
04/25/24 04/26/24 04/27/24
06:59 06:59 06:59
Intake Total 1380 / 1380 420 / 420
Balance 1380 / 1380 420 / 420
Review of Systems
-
History Source: Patient
All other systems: Not reviewed unless documented
Data Reviewed
-
Diagnostic Radiology: Image personally visualized and interpreted and Report Reviewed by me
CT Scan: Image personally visualized and interpreted and Report Reviewed by me
Labs: Labs Reviewed by me
[2024-04-26] MEDS: NOVOLOG FLEXPEN-MODERATE RESISTANCE 3 UNITS SC (14:43)
--- NOTE | 2024-04-26 14:48 | W.PN.UPDATE ---
Update Note
Progress Note Update
patient seen chart reviewed. spoke with nursing and with patient's son jacques by telephone. informed him of the issue w eps from risperdal and the changes i made . son expressed worry that patient's agitation will recur. informed him there will
be a prn of seroquel in case she becomes agitated. the patient is very quite today. nursing tells me she has been more interactive today. she has not been eating. she still has some cogwheeling rigidity have increased cogentin to o.5 tid
monitoring for increased confusion. at times it takes a while for the eps to dissipate. will follow
--- NOTE | 2024-04-26 15:22 | CM ---
Addendum entered by Estrella Cintron 04/26/24 16:15:
Received call from Jannette at [facility]
Referral has been received, however form must be physically signed by patient/POA
Per Jannette, she will Email forms to be completed and signed to be forwarded to pts POA
Pt tentatively scheduled for assessment on 05/01/2024 in AM
CM will have forms completed and forwarded to pts POA when received in Email
Plan - SNF when level 2 assessment completed
Original Note:
Case management following for discharge planning
Received call from pts son Chris. Requesting to have Dr Velasquez call with update. Dr Velasquez notified by TT.
[2024-04-26 15:25] VITALS: BP 141/64
[2024-04-26 16:35] LABS: Glucose - Point of Care 165 mg/dl (70-99)
[2024-04-26] MEDS: NOVOLOG FLEXPEN-MODERATE RESISTANCE 1 UNITS SC (18:19)
[2024-04-26] MEDS: LIPITOR 40 MG PO (21:30)
[2024-04-26 21:34] LABS: Glucose - Point of Care 173 mg/dl (70-99)
[2024-04-26] MEDS: LANTUS 0.1 UNITS SC (21:44)
[2024-04-26 23:20] VITALS: BP 146/92
[2024-04-27 06:50] LABS: HDL Cholesterol 44 mg/dl; LDL Cholesterol, Calculated 21 mg/dl; Total Cholesterol 81 mg/dl (50-199); Triglyceride 82 mg/dl (10-149); Very Low Density Lipoprotein 16 mg/dl (0-30)
[2024-04-27 07:30] VITALS: BP 118/60
[2024-04-27 07:37] LABS: Glucose - Point of Care 141 mg/dl (70-99)
[2024-04-27] MEDS: TENORMIN 50 MG PO (08:39)
[2024-04-27] MEDS: COGENTIN 0.5 MG PO ×3 (08:39→22:05)
[2024-04-27] MEDS: ZESTRIL 5 MG PO (08:39)
[2024-04-27] MEDS: GLUCOPHAGE XR EXTENDED RELEASE 1000 MG PO (08:39)
[2024-04-27] MEDS: ELIQUIS 5 MG PO ×2 (08:39→20:34)
[2024-04-27] MEDS: NOVOLOG FLEXPEN-MODERATE RESISTANCE SC ×2 (08:40→17:21)
--- NOTE | 2024-04-27 09:39 | PTCARENOTE ---
pt wakes to name. oriented to self. states no pain. bruising noted on right arm and hip.
[2024-04-27 10:00] VITALS: BP 113/62; PULSE 82
[2024-04-27 10:05] VITALS: BP 113/62; PULSE 82
[2024-04-27] MEDS: SEROQUEL 12.5 MG PO ×2 (10:57→20:35)
[2024-04-27] MEDS: LIDOCAINE 4% PATCH 1 PATCH TOPICAL (11:35)
[2024-04-27] MEDS: KLONOPIN 0.25 MG PO (11:36)
--- NOTE | 2024-04-27 11:39 | PTCARENOTE ---
pt anxious yelling out for family prn meds given as ordered. pt saying her back hurts. notified. lido patch ordered
[2024-04-27 11:51] LABS: Glucose - Point of Care 185 mg/dl (70-99)
[2024-04-27] MEDS: NOVOLOG FLEXPEN-MODERATE RESISTANCE 1 UNITS SC (11:58)
--- NOTE | 2024-04-27 12:36 | W.PN.UPDATE ---
Update Note
Progress Note Update
patient seen chart reviewed. spoke with nursing. patient has had periods of agitation requiring prn of klonopin and seroquel in the past two days. son had expressed concern that the agitation which led to psych hosp might recur which perhaps is what
is happening. when i saw her today she was calm although remains very confused. seroquel 12.5 mg bid ordered. she remains with some cogwheeling. will continue to monitor and for now continue w cogentin which can worsen confusion although she seems
much the same vis a vis mental status which is to say very confused and cognitively impaired. assessment from the [facility] will be on tuesday. hopefully disposition can be settled soon after.
--- NOTE | 2024-04-27 13:10 | W.PN.HOSP.TC ---
Today's Communication/Plan
-
Insulin
Assessment 05/28
Assessment / Plan
Assessment / Plan
Physical Exam
General: Well Developed, Well Nourished and No Apparent Distress
HEENT: NormoCephalic and Anicteric
Respiratory: Clear
Cardiac: S1/S2
GI: Soft and Non Tender
Musculoskeletal: No Clubbing
Skin: Warm
Neuro: Awake, Alert, Oriented and AO x 3
Hematologic/Lymphatic: No Lymphadenopathy
Psych: Calm
79-year-old female with past medical history of dementia, atrial fibrillation on Eliquis, hypertension, hyperlipidemia, type 2 diabetes presenting after fall.
PLAN:
#Fall
-no fracture
-most likely 2/2 to worsening dementia
-CPK wnl
-F/u TFTs
-F/u UA with straight cath, doubt UTI - cultures negative
-PT/OT
#Afib
cont atenolol, eliquis
#HLD
#Hypertension
#DM
-cont statin, ACEI
-metformin, add on AISS
-add on a1c - 10.2
-lantus 10uqhs, moderate sliding scale
#Dementia
-stopped risperidone,
-Cont clonezam prn
-psych had to be consulted for level 2 eval
#DVT ppx
-Eliquis
Dispo�pending assessment 05/01
Anticipated Discharge: > 48 hours
Subjective/Interval History
-
Date of Service: April 27, 2024
No acute events overnight
Objective Data
-
Vital Signs:
Vital Signs
Temp Pulse Resp BP Pulse Ox
98.3 F 79 17 118/60 95
04/27/24 07:30 04/27/24 08:39 04/27/24 07:30 04/27/24 08:39 04/27/24 07:30
I&O
04/26/24 04/27/24 04/28/24
06:59 06:59 06:59
Intake Total 420 / 420 480 / 480
Balance 420 / 420 480 / 480
Review of Systems
-
History Source: Patient
All other systems: Not reviewed unless documented
Data Reviewed
-
Diagnostic Radiology: Image personally visualized and interpreted and Report Reviewed by me
CT Scan: Image personally visualized and interpreted and Report Reviewed by me
Labs: Labs Reviewed by me
--- NOTE | 2024-04-27 14:12 | CM ---
Addendum entered by Estrella Cintron 04/27/24 15:07:
Received Email with signed documents from POAngel
Faxed documents to the [facility]
Original Note:
Received call from [facility] - spoke with Jannette
Require consents and medical eval to have signature vs verbal consent
Spoke with pts son Santo/IVELISSE - forms Emailed to son at [email or web address] - son will sign and Email or fax back
When forms returned will be Faxed to [facility].
Tentatively scheduled for evaluation on 05/01/2024
Plan - SNF after completion of assessment and acceptance at SNF
[2024-04-27 15:18] VITALS: BP 120/51
[2024-04-27 16:45] LABS: Glucose - Point of Care 149 mg/dl (70-99)
[2024-04-27 22:01] LABS: Glucose - Point of Care 235 mg/dl (70-99)
[2024-04-27] MEDS: LANTUS 0.1 UNITS SC (22:03)
[2024-04-27] MEDS: LIPITOR 40 MG PO (22:04)
[2024-04-27 23:19] VITALS: BP 105/48
[2024-04-28] MEDS: TYLENOL 1000 MG PO (05:10)
[2024-04-28 08:00] VITALS: BP 146/68
[2024-04-28 08:10] LABS: % Basophils 0.4 % (0-2); % Eosinophils 4.5 % (0-6); % Immature Granulocytes 0.4 % (0-0.5); % Lymphocytes 16.1 % (20.5-51.1); % Monocytes 8.3 % (1.7-9.3); % Neutrophils 70.3 % (42.2-75.2); Absolute Eosinophils 0.2 10^3/uL (0-0.7); Absolute Lymphocytes 0.8 10^3/uL (1.2-3.4); Absolute Monocytes 0.4 10^3/uL (0.1-0.6); Absolute Neutrophils 3.5 10^3/uL (1.4-6.5); Hematocrit 30.7 % (37.0-47.0); Hemoglobin 11.5 g/dL (12.0-16.0); Mean Corp Hgb Conc. 37.5 g/dL (33.0-37.0); Mean Corpuscular Hgb 35.1 pg (27.0-31.0); Mean Corpuscular Volume 93.6 fL (81.0-99.0); Mean Platelet Volume 10.5 fL (7.4-10.4); Nucleated Red Blood Cells % 0 %; Platelet Count 119 10^3/uL (130-400); Red Blood Cell Count 3.28 10^6/uL (4.20-5.40); Red Cell Dist. Width 13.8 % (11.5-14.5); White Blood Cell Count 4.9 10^3/uL (4.8-10.8)
[2024-04-28 08:24] LABS: Glucose - Point of Care 199 mg/dl (70-99)
[2024-04-28 08:28] LABS: Blood Urea Nitrogen 28 mg/dl (7-17); Calcium 9.8 mg/dl (8.4-10.2); Carbon Dioxide 30 mmol/L (22-30); Chloride 99 mmol/L (98-107); Estimated Creatinine Clearance 57 ml/min; Glucose 185 mg/dl (70-99); Magnesium 1.8 mg/dl (1.6-2.3); Potassium 4.2 mmol/L (3.5-5.1); Sodium 137 mmol/L (135-145); eGFR > 60.00
[2024-04-28] MEDS: ZESTRIL 5 MG PO (09:23)
[2024-04-28] MEDS: NOVOLOG FLEXPEN-MODERATE RESISTANCE 1 UNITS SC (09:23)
[2024-04-28] MEDS: SEROQUEL 12.5 MG PO ×2 (09:24→22:23)
[2024-04-28] MEDS: LIDOCAINE 4% PATCH 1 PATCH TOPICAL (09:25)
[2024-04-28] MEDS: ELIQUIS 5 MG PO ×2 (09:26→22:23)
[2024-04-28] MEDS: GLUCOPHAGE XR EXTENDED RELEASE 1000 MG PO (09:26)
[2024-04-28] MEDS: TENORMIN 50 MG PO (09:26)
[2024-04-28] MEDS: COGENTIN 0.5 MG PO ×2 (09:26→22:23)
--- NOTE | 2024-04-28 10:34 | W.PN.HOSP.TC ---
Today's Communication/Plan
-
Insulin
Assessment 05/28
Assessment / Plan
Assessment / Plan
Physical Exam
General: Well Developed, Well Nourished and No Apparent Distress
HEENT: NormoCephalic and Anicteric
Respiratory: Clear
Cardiac: S1/S2
GI: Soft and Non Tender
Musculoskeletal: No Clubbing
Skin: Warm
Neuro: Awake, Alert, Oriented and AO x 3
Hematologic/Lymphatic: No Lymphadenopathy
Psych: Calm
79-year-old female with past medical history of dementia, atrial fibrillation on Eliquis, hypertension, hyperlipidemia, type 2 diabetes presenting after fall.
PLAN:
#Fall
-no fracture
-most likely 2/2 to worsening dementia
-CPK wnl
-F/u TFTs
-F/u UA with straight cath, doubt UTI - cultures negative
-PT/OT
#Afib
cont atenolol, eliquis
#HLD
#Hypertension
#DM
-cont statin, ACEI
-metformin, add on AISS
-add on a1c - 10.2
-lantus 10uqhs, moderate sliding scale
#Dementia
-stopped risperidone,
-Cont clonezam prn
-psych had to be consulted for level 2 eval
#DVT ppx
-Eliquis
Dispo�pending assessment 05/01
Anticipated Discharge: > 48 hours
Subjective/Interval History
-
Date of Service: April 28, 2024
No acute events
Objective Data
-
Labs:
Laboratory Results
04/28/24
06:14
WBC 4.9
Hgb 11.5 L
Hct 30.7 L
Plt Count 119 L D
Sodium 137
Potassium 4.2
Chloride 99
Carbon Dioxide 30
BUN 28 H
Creatinine 0.7
Glucose 185 H
Calcium 9.8
Vital Signs:
Vital Signs
Temp Pulse Resp BP Pulse Ox
97.7 F 82 18 146/68 97
04/28/24 08:00 04/28/24 09:26 04/28/24 08:00 04/28/24 09:26 04/28/24 08:00
I&O
04/27/24 04/28/24 04/29/24
06:59 06:59 06:59
Intake Total 480 / 480 960 / 960
Balance 480 / 480 960 / 960
Review of Systems
-
History Source: Patient
All other systems: Not reviewed unless documented
Data Reviewed
-
Diagnostic Radiology: Image personally visualized and interpreted and Report Reviewed by me
CT Scan: Image personally visualized and interpreted and Report Reviewed by me
Labs: Labs Reviewed by me
[2024-04-28 12:47] LABS: Glucose - Point of Care 349 mg/dl (70-99)
[2024-04-28] MEDS: NOVOLOG FLEXPEN-MODERATE RESISTANCE 7 UNITS SC ×2 (12:50→17:22)
--- NOTE | 2024-04-28 12:54 | W.PN.UPDATE ---
Update Note
Progress Note Update
patient seen chart reviewed. spoke with nursing. patient remains confused but she has been generally cooperative . she has not received a prn since yesterday am of seroquel 12.5 mg although she is taking seroquel 12.5 mg bid at this point.
cogwheeling rigidity is much improved. hard to test on the right bc she has a lot of bruising and if you touch her wrist there is voluntary guarding. on the left very minimal cogwheeling. have set up a taper of cogentin bid for a couple days to once
daily dc may 03. she has appt tuesday for the [facility] assessment.
[2024-04-28 15:00] VITALS: BP 171/92
[2024-04-28 17:21] LABS: Glucose - Point of Care 307 mg/dl (70-99)
[2024-04-28 21:18] LABS: Glucose - Point of Care 325 mg/dl (70-99)
[2024-04-28] MEDS: LIPITOR 40 MG PO (22:23)
[2024-04-28] MEDS: LANTUS 0.1 UNITS SC (22:24)
[2024-04-28 23:40] VITALS: BP 145/76
[2024-04-29 08:00] VITALS: BP 162/68
[2024-04-29 08:12] LABS: Glucose - Point of Care 296 mg/dl (70-99)
[2024-04-29] MEDS: LIDOCAINE 4% PATCH 1 PATCH TOPICAL (09:04)
[2024-04-29] MEDS: ZESTRIL 5 MG PO (09:04)
[2024-04-29] MEDS: GLUCOPHAGE XR EXTENDED RELEASE 1000 MG PO (09:04)
[2024-04-29] MEDS: ELIQUIS 5 MG PO ×2 (09:04→21:35)
[2024-04-29] MEDS: COGENTIN 0.5 MG PO ×2 (09:05→21:35)
[2024-04-29] MEDS: TENORMIN 50 MG PO (09:05)
[2024-04-29] MEDS: SEROQUEL 12.5 MG PO ×2 (09:05→21:36)
[2024-04-29] MEDS: NOVOLOG FLEXPEN-MODERATE RESISTANCE SC ×2 (09:07→12:56)
--- NOTE | 2024-04-29 11:02 | W.PN.HOSP.TC ---
Today's Communication/Plan
-
insulin titration
pending dc, cm aware
Assessment / Plan
Assessment / Plan
Physical Exam
General: Well Developed, Well Nourished and No Apparent Distress
HEENT: NormoCephalic and Anicteric
Respiratory: Clear
Cardiac: S1/S2
GI: Soft and Non Tender
Musculoskeletal: No Clubbing
Skin: Warm
Neuro: Awake, Alert, Oriented and AO x 3
Hematologic/Lymphatic: No Lymphadenopathy
Psych: Calm
79-year-old female with past medical history of dementia, atrial fibrillation on Eliquis, hypertension, hyperlipidemia, type 2 diabetes presenting after fall.
PLAN:
#Fall
-no fracture
-most likely 2/2 to worsening dementia
-CPK wnl
-F/u TFTs
-F/u UA with straight cath, doubt UTI - cultures negative
-PT/OT
#Afib
cont atenolol, eliquis
#HLD
#Hypertension
#DM
-cont statin, ACEI
-metformin, add on AISS
-add on a1c - 10.2
-lantus 14uqhs, add aspart 4u ac, moderate sliding scale
#Dementia
-stopped risperidone,
-Cont clonezam prn
-psych had to be consulted for level 2 eval
#DVT ppx
-Eliquis
Dispo�pending assessment 05/01
Anticipated Discharge: > 48 hours
Subjective/Interval History
-
Date of Service: April 29, 2024
No acute events overnight, eating with internal medicine physician assistant at bedside
Objective Data
-
Vital Signs:
Vital Signs
Temp Pulse Resp BP Pulse Ox
98.2 F 81 18 153/63 99
04/29/24 08:00 04/29/24 09:04 04/29/24 08:00 04/29/24 09:04 04/29/24 08:00
I&O
04/28/24 04/29/24 04/30/24
06:59 06:59 06:59
Intake Total 960 / 960 1080 / 1080
Balance 960 / 960 1080 / 1080
Review of Systems
-
History Source: Patient
All other systems: Not reviewed unless documented
Data Reviewed
-
Diagnostic Radiology: Image personally visualized and interpreted and Report Reviewed by me
CT Scan: Image personally visualized and interpreted and Report Reviewed by me
Labs: Labs Reviewed by me
--- NOTE | 2024-04-29 11:28 | W.PN.UPDATE ---
Update Note
Progress Note Update
Patient is calm and presently asleep. At most she has very limited cogwheeling so I agree with the gradual tapering of the Cogentin as it could cause anticholinergic side effects. Would continue the Seroquel as it appeats to help with the agitation.
[2024-04-29 12:55] LABS: Glucose - Point of Care 321 mg/dl (70-99)
[2024-04-29] MEDS: NOVOLOG FLEXPEN SC (12:55)
[2024-04-29] MEDS: NOVOLOG FLEXPEN 4 UNITS SC ×2 (13:02→16:35)
[2024-04-29] MEDS: NOVOLOG FLEXPEN-MODERATE RESISTANCE 7 UNITS SC (13:05)
[2024-04-29] MEDS: NOVOLOG FLEXPEN-MODERATE RESISTANCE 5 UNITS SC ×2 (13:06→16:35)
[2024-04-29 15:06] VITALS: BP 142/62
[2024-04-29 16:24] LABS: Glucose - Point of Care 286 mg/dl (70-99)
[2024-04-29] MEDS: LIPITOR 40 MG PO (21:37)
[2024-04-29] MEDS: LANTUS 0.14 UNITS SC (21:38)
[2024-04-29 21:40] LABS: Glucose - Point of Care 169 mg/dl (70-99)
[2024-04-29 23:31] VITALS: BP 145/61
--- NOTE | 2024-04-30 04:03 | PTCARENOTE ---
Pt cooperative and pleasant throughout shift w/ no attempts of getting oob. Medsitter removed from room and bed alarm in place. Plan of care ongoing.
[2024-04-30 07:20] VITALS: BP 108/85
[2024-04-30 07:22] LABS: Glucose - Point of Care 292 mg/dl (70-99)
[2024-04-30] MEDS: LIDOCAINE 4% PATCH 1 PATCH TOPICAL (08:03)
[2024-04-30] MEDS: ZESTRIL 5 MG PO (08:04)
[2024-04-30] MEDS: GLUCOPHAGE XR EXTENDED RELEASE 1000 MG PO (08:04)
[2024-04-30] MEDS: TENORMIN 50 MG PO (08:04)
[2024-04-30] MEDS: ELIQUIS 5 MG PO ×2 (08:05→21:45)
[2024-04-30] MEDS: SEROQUEL 12.5 MG PO ×2 (08:05→21:45)
[2024-04-30] MEDS: COGENTIN 0.5 MG PO (08:05)
[2024-04-30] MEDS: NOVOLOG FLEXPEN 4 UNITS SC ×3 (08:08→17:45)
[2024-04-30] MEDS: NOVOLOG FLEXPEN-MODERATE RESISTANCE 5 UNITS SC ×2 (08:09→12:52)
--- NOTE | 2024-04-30 10:53 | W.PN.HOSP.TC ---
Today's Communication/Plan
-
dc planning
Assessment / Plan
Assessment / Plan
Physical Exam
General: Well Developed, Well Nourished and No Apparent Distress
HEENT: NormoCephalic and Anicteric
Respiratory: Clear
Cardiac: S1/S2
GI: Soft and Non Tender
Musculoskeletal: No Clubbing
Skin: Warm
Neuro: patient remains confused, she followed simple commands.
Psych: Calm
79-year-old female with past medical history of dementia, atrial fibrillation on Eliquis, hypertension, hyperlipidemia, type 2 diabetes presenting after fall.
PLAN:
#Fall
-no fracture
-most likely 2/2 to worsening dementia
-CPK wnl
-F/u TFTs
-F/u UA with straight cath, doubt UTI - cultures negative
-PT/OT
#Afib
cont atenolol, Eliquis
#HLD
#Hypertension
#DM
uncontrolled
-cont statin, ACEI
-metformin, added on AISS
-add on a1c - 10.2
- Will increase Lantus to 20 units 14uqhs, added aspart 4u ac, moderate sliding scale
# History of Unspecified psychotic d/o, with hallucinations/non specified- Dementia, with behavior disturbance/ Unspecified Depressive d/o
She had cogwheeling rigidity, tapering Cogentin
-stopped risperidone, per psych ( high dose for her age),
-Cont clonazepam prn
-psych had to be consulted for level 2 eval
#DVT ppx
-Eliquis
Total time spent to see the patient, examine the patient on the floor, review data and lab results, discuss the treatment plan with the patient, nursing staff around 55 minutes
Anticipated Discharge: Within 24 hours
Subjective/Interval History
-
Date of Service: April 30, 2024
Objective Data
-
Vital Signs:
Vital Signs
Temp Pulse Resp BP Pulse Ox
98.4 F 66 16 108/85 96
04/30/24 07:20 04/30/24 08:04 04/30/24 07:20 04/30/24 08:04 04/30/24 07:20
I&O
04/29/24 04/30/24 05/01/24
06:59 06:59 06:59
Intake Total 1080 / 1080 480 / 480
Balance 1080 / 1080 480 / 480
--- NOTE | 2024-04-30 11:36 | W.PN.UPDATE ---
Update Note
Progress Note Update
Patient is asleep but when woken up is not agitated or aggressive. I cogwheeling not present currently. is now just on 0.5 mg of Cogentin daily.
Cogentin is to be D/C'd on 05/03.
Would continue on the Seroquel 12.5 bid.
[2024-04-30 12:07] LABS: Glucose - Point of Care 283 mg/dl (70-99)
[2024-04-30 15:40] VITALS: BP 134/65
[2024-04-30 16:30] LABS: Glucose - Point of Care 221 mg/dl (70-99)
[2024-04-30] MEDS: NOVOLOG FLEXPEN-MODERATE RESISTANCE 3 UNITS SC (17:45)
[2024-04-30 21:10] LABS: Glucose - Point of Care 193 mg/dl (70-99)
[2024-04-30] MEDS: LANTUS 0.2 UNITS SC (21:45)
[2024-04-30] MEDS: LIPITOR 40 MG PO (21:46)
[2024-04-30 23:46] VITALS: BP 127/51
[2024-05-01 07:35] VITALS: BP 152/80
[2024-05-01 09:10] LABS: Glucose - Point of Care 254 mg/dl (70-99)
[2024-05-01] MEDS: COGENTIN 0.5 MG PO (10:28)
[2024-05-01] MEDS: SEROQUEL 12.5 MG PO ×2 (10:28→20:54)
[2024-05-01] MEDS: ZESTRIL 5 MG PO (10:31)
[2024-05-01] MEDS: GLUCOPHAGE XR EXTENDED RELEASE PO ×2 (10:31→12:14)
[2024-05-01] MEDS: TENORMIN 50 MG PO (10:32)
[2024-05-01] MEDS: ELIQUIS 5 MG PO ×2 (10:32→20:54)
[2024-05-01] MEDS: LIDOCAINE 4% PATCH 1 PATCH TOPICAL (10:33)
[2024-05-01] MEDS: NOVOLOG FLEXPEN-MODERATE RESISTANCE 5 UNITS SC (10:44)
[2024-05-01] MEDS: NOVOLOG FLEXPEN 4 UNITS SC ×3 (10:44→17:02)
--- NOTE | 2024-05-01 11:00 | W.PN.HOSP.TC ---
Today's Communication/Plan
-
dc
Assessment / Plan
Assessment / Plan
Physical Exam
General: Well Developed, Well Nourished and No Apparent Distress
HEENT: NormoCephalic and Anicteric
Respiratory: Clear
Cardiac: S1/S2
GI: Soft and Non Tender
Musculoskeletal: No Clubbing
Skin: Warm
Neuro: patient remains confused, she followed simple commands.
Psych: Calm
79-year-old female with past medical history of dementia, atrial fibrillation on Eliquis, hypertension, hyperlipidemia, type 2 diabetes presenting after fall.
PLAN:
#Fall
-no fracture
-most likely 2/2 to worsening dementia
-CPK wnl
-F/u TFTs
-F/u UA with straight cath, doubt UTI - cultures negative
-PT/OT
#Afib
cont atenolol, Eliquis
#HLD
#Hypertension
#DM
uncontrolled
-cont statin, ACEI
-metformin, added on AISS
-add on a1c - 10.2
- Will increase Lantus to 20 units 14uqhs, added aspart 4u ac, moderate sliding scale
# History of Unspecified psychotic d/o, with hallucinations/non specified- Dementia, with behavior disturbance/ Unspecified Depressive d/o
She had cogwheeling rigidity, tapering Cogentin
-stopped risperidone, per psych ( high dose for her age),
-Cont clonazepam prn
-psych had to be consulted for level 2 eval
#DVT ppx
-Eliquis
Total time spent to see the patient, examine the patient on the floor, review data and lab results, discuss the treatment plan with the patient, nursing staff around 45 minutes
Anticipated Discharge: Today
Subjective/Interval History
-
Date of Service: May 01, 2024
No chest pain
No sob
No fevers
Objective Data
-
Vital Signs:
Vital Signs
Temp Pulse Resp BP Pulse Ox
98.7 F 60 16 152/80 96
05/01/24 07:35 05/01/24 10:32 05/01/24 07:35 05/01/24 10:32 05/01/24 07:35
I&O
04/30/24 05/01/24 05/02/24
06:59 06:59 06:59
Intake Total 480 / 480 540 / 540
Balance 480 / 480 540 / 540
--- NOTE | 2024-05-01 11:05 | CM ---
Addendum entered by Petrona Saldana 05/01/24 15:11:
Marcela is here to review forms and met patient in room. CM and [employer] worker spoke with patient son and patient son is reluctant to provided Social Security number. CM updated Admissions at [facility]. CM will continue to follow for discharge
planning needs.
Addendum entered by Petrona Saldana 05/01/24 14:07:
Patient updated as well as nursing.
Original Note:
Assessment with [facility] for today at 2:30pm. CM will continue to follow for discharge planning needs.
Plan; SNF pending Level II Letter and SNF bed availability.
--- NOTE | 2024-05-01 11:07 | W.PN.UPDATE ---
Update Note
Progress Note Update
Patient is doing well, overall stable, not agitated.
No cogwheeling noted so will D/C the Cogentin.
[2024-05-01 12:03] LABS: Glucose - Point of Care 359 mg/dl (70-99)
[2024-05-01] MEDS: NOVOLOG FLEXPEN-MODERATE RESISTANCE 9 UNITS SC (12:17)
[2024-05-01 13:03] VITALS: BP 125/66; PULSE 59; O2SAT 97
[2024-05-01 13:11] VITALS: BP 125/66; PULSE 59; O2SAT 97
[2024-05-01 16:00] VITALS: BP 141/78
[2024-05-01] MEDS: GLUCOPHAGE 500 MG PO (17:01)
[2024-05-01] MEDS: NOVOLOG FLEXPEN-MODERATE RESISTANCE 3 UNITS SC (17:03)
[2024-05-01 17:05] LABS: Glucose - Point of Care 212 mg/dl (70-99)
[2024-05-01] MEDS: LIPITOR 40 MG PO (21:01)
[2024-05-01 21:59] LABS: Glucose - Point of Care 134 mg/dl (70-99)
[2024-05-01] MEDS: LANTUS 0.2 UNITS SC (22:24)
[2024-05-01 23:24] VITALS: BP 117/45
[2024-05-02 07:00] VITALS: BP 147/73
[2024-05-02 07:54] LABS: Glucose - Point of Care 203 mg/dl (70-99)
[2024-05-02] MEDS: ZESTRIL 5 MG PO (08:27)
[2024-05-02] MEDS: SEROQUEL 12.5 MG PO ×2 (08:28→20:41)
[2024-05-02] MEDS: LIDOCAINE 4% PATCH 1 PATCH TOPICAL (08:28)
[2024-05-02] MEDS: GLUCOPHAGE 500 MG PO ×2 (08:28→17:20)
[2024-05-02] MEDS: ELIQUIS 5 MG PO ×2 (08:28→20:41)
[2024-05-02] MEDS: NOVOLOG FLEXPEN 4 UNITS SC ×3 (08:31→17:19)
[2024-05-02] MEDS: NOVOLOG FLEXPEN-MODERATE RESISTANCE 3 UNITS SC ×2 (08:31→12:43)
[2024-05-02] MEDS: TENORMIN 50 MG PO (09:02)
--- NOTE | 2024-05-02 09:51 | W.PN.HOSP.TC ---
Today's Communication/Plan
-
.dc planning
Assessment / Plan
Assessment / Plan
Physical Exam
General: Well Developed, Well Nourished and No Apparent Distress
HEENT: NormoCephalic and Anicteric
Respiratory: Clear
Cardiac: S1/S2
GI: Soft and Non Tender
Musculoskeletal: No Clubbing
Skin: Warm
Neuro: patient remains confused, she followed simple commands.
Psych: Calm
79-year-old female with past medical history of dementia, atrial fibrillation on Eliquis, hypertension, hyperlipidemia, type 2 diabetes presenting after fall.
PLAN:
#Fall
-no fracture
-most likely 2/2 to worsening dementia
-CPK wnl
-F/u TFTs
-F/u UA with straight cath, doubt UTI - cultures negative
-PT/OT
#Afib
cont atenolol, Eliquis
#HLD
#Primary Hypertension
#DM
better controlled
-cont statin, ACEI
-metformin, added on AISS
-add on a1c - 10.2
- Increased Lantus to 20 units 14uqhs, added aspart 4u ac, moderate sliding scale
# History of Unspecified psychotic d/o, with hallucinations/non specified- Dementia, with behavior disturbance/ Unspecified Depressive d/o
She had cogwheeling rigidity, tapering Cogentin
-stopped risperidone, per psych ( high dose for her age),
-Cont clonazepam prn
-psych had to be consulted for level 2 eval
#DVT ppx
-Eliquis
Total time spent to see the patient, examine the patient on the floor, review data and lab results, discuss the treatment plan with the patient, , case aideorchard manager staff around 55 minutes
Anticipated Discharge: Today
Subjective/Interval History
-
Date of Service: May 02, 2024
No pain issues
Blood glucose is better controlled
Objective Data
-
Vital Signs:
Vital Signs
Temp Pulse Resp BP Pulse Ox
98.4 F 68 18 147/73 96
05/02/24 07:00 05/02/24 07:00 05/02/24 07:00 05/02/24 07:00 05/02/24 07:00
I&O
05/01/24 05/02/24 05/03/24
06:59 06:59 06:59
Intake Total 540 / 540 360 / 360
Balance 540 / 540 360 / 360
--- NOTE | 2024-05-02 12:17 | W.PN.UPDATE ---
Update Note
Progress Note Update
patient seen chart reviewed. discussed w nursing. patient quietly lying in bed. nursing fashioned a 'john bear' from a blanket on which they sarath a face. patient holding it ....seems to proivde some comfort. the patient remains confused . she was
seen by [facility] yesterday. awaiting paperwork that would allow her placement. at this point on seroquel 12.5 mg bid . she has not required prn of seroquel or klonopin which had been ordered for her since 04.27. she is no longer
on med sitter. will check in w her tomorrow. if she continues as she is today will sign off.
[2024-05-02 12:33] LABS: Glucose - Point of Care 217 mg/dl (70-99)
--- NOTE | 2024-05-02 13:30 | CM ---
Patient seen at bedside. Patient level II letter not yet received. CM updated patient son(POA) and he requested physician call him with update. CM will send TT. CM will continue to follow for discharge planning needs.
Plan; SNF when level II letter received
[2024-05-02 15:00] VITALS: BP 139/71
[2024-05-02 17:16] LABS: Glucose - Point of Care 182 mg/dl (70-99)
[2024-05-02] MEDS: NOVOLOG FLEXPEN-MODERATE RESISTANCE 1 UNITS SC (17:19)
[2024-05-02] MEDS: LIPITOR 40 MG PO (20:41)
[2024-05-02 21:41] LABS: Glucose - Point of Care 196 mg/dl (70-99)
[2024-05-02] MEDS: LANTUS 0.2 UNITS SC (21:48)
[2024-05-02 23:00] VITALS: BP 125/60
[2024-05-03 07:14] LABS: Glucose - Point of Care 183 mg/dl (70-99)
[2024-05-03 07:35] VITALS: BP 145/66
[2024-05-03] MEDS: ELIQUIS 5 MG PO ×2 (08:43→21:15)
[2024-05-03] MEDS: SEROQUEL 12.5 MG PO (08:43)
[2024-05-03] MEDS: GLUCOPHAGE 500 MG PO ×2 (08:43→16:43)
[2024-05-03] MEDS: LIDOCAINE 4% PATCH 1 PATCH TOPICAL (08:44)
[2024-05-03] MEDS: NOVOLOG FLEXPEN 4 UNITS SC ×3 (08:44→16:44)
[2024-05-03] MEDS: NOVOLOG FLEXPEN-MODERATE RESISTANCE 1 UNITS SC ×2 (08:44→16:44)
[2024-05-03] MEDS: ZESTRIL 5 MG PO (08:47)
[2024-05-03] MEDS: TENORMIN 50 MG PO (08:47)
[2024-05-03 11:23] LABS: Glucose - Point of Care 307 mg/dl (70-99)
--- NOTE | 2024-05-03 11:42 | W.PN.UPDATE ---
Update Note
Progress Note Update
patient seen chart reviewed. the patient when i saw her was lying quietly in bed. she has not received a prn since april 27. staff came in to do her hygiene and remake bed during which she was calm. hopefully [facility] will be
able to aid in disposition. no changes made in her psych medication
--- NOTE | 2024-05-03 11:43 | CM ---
Addendum entered by Petrona Saldana 05/03/24 13:12:
Per hal[facility] letter not yet issued. She is calling cabinetmaker supervisor.
Original Note:
left for [facility] BC reviewer and requested call back about letter needed for SNF placement.
[2024-05-03] MEDS: NOVOLOG FLEXPEN-MODERATE RESISTANCE 7 UNITS SC (11:54)
--- NOTE | 2024-05-03 12:01 | W.PN.HOSP.TC ---
Today's Communication/Plan
-
dc planning
Assessment / Plan
Assessment / Plan
Physical Exam
General: No Apparent Respiratory Distress, she took off her gown this morning
HEENT: Normocephalic and Anicteric
Respiratory: Clear
Cardiac: S1/S2
GI: Soft and Non Tender
Musculoskeletal: No Clubbing
Skin: Warm
Neuro: patient remains confused, she followed simple commands.
Psych: slightly agitated
79-year-old female with past medical history of dementia, atrial fibrillation on Eliquis, hypertension, hyperlipidemia, type 2 diabetes presenting after fall.
# History of Unspecified psychotic d/o, with hallucinations/non specified- Dementia, with behavior disturbance/ Unspecified Depressive d/o
She had cogwheeling rigidity, tapering Cogentin
Per son, she was seen by a panel of physicians in OP setting including neurologist.
-stopped risperidone, per psych ( high dose for her age),
-Cont clonazepam prn
- She seems stable on Seroquel
-psych had to be consulted for level 2 eval
#Fall
-no fracture
-most likely 2/2 to worsening dementia
-CPK wnl
-F/u TFTs
-F/u UA with straight cath, doubt UTI - cultures negative
-PT/OT
#Afib
cont atenolol, Eliquis
#HLD
#Primary Hypertension
#DM
better controlled
-cont statin, ACEI
-metformin, added on AISS
-add on a1c - 10.2
- Increased Lantus to 20 units 14uqhs, added aspart 4u ac, moderate sliding scale
#DVT ppx
-Eliquis
# Code status, d/w son ( Su), she is DNR
Total time spent to see the patient, examine the patient on the floor, review data and lab results, discuss the treatment plan with the patient, son, psychiatrist, ed case managerdigital account manager staff around 55 minutes
Anticipated Discharge: Within 24 hours
Subjective/Interval History
-
Date of Service: May 03, 2024
Pt seems to be more awake and agitated
Objective Data
-
Vital Signs:
Vital Signs
Temp Pulse Resp BP Pulse Ox
97.9 F 68 17 130/65 98
05/03/24 07:35 05/03/24 08:47 05/03/24 07:35 05/03/24 08:47 05/03/24 07:35
I&O
05/02/24 05/03/24 05/04/24
06:59 06:59 06:59
Intake Total 360 / 360 480 / 480 150 / 150
Balance 360 / 360 480 / 480 150 / 150
[2024-05-03] MEDS: SENOKOT-S 1 TABLET PO (12:13)
[2024-05-03] MEDS: MIRALAX 17 GRAMS PO (12:13)
[2024-05-03 15:12] VITALS: BP 119/61
[2024-05-03 16:44] LABS: Glucose - Point of Care 195 mg/dl (70-99)
[2024-05-03] MEDS: LIPITOR 40 MG PO (21:15)
[2024-05-03] MEDS: SEROQUEL 25 MG PO (21:15)
[2024-05-03] MEDS: LANTUS 0.2 UNITS SC (21:15)
[2024-05-03 21:18] LABS: Glucose - Point of Care 216 mg/dl (70-99)
[2024-05-03 23:08] VITALS: BP 111/54
[2024-05-04 07:08] LABS: Glucose - Point of Care 200 mg/dl (70-99)
[2024-05-04 07:33] VITALS: BP 109/70
[2024-05-04] MEDS: LIDOCAINE 4% PATCH 1 PATCH TOPICAL (08:16)
[2024-05-04] MEDS: NOVOLOG FLEXPEN 4 UNITS SC ×3 (08:16→17:18)
[2024-05-04] MEDS: NOVOLOG FLEXPEN-MODERATE RESISTANCE 3 UNITS SC (08:17)
[2024-05-04] MEDS: ELIQUIS 5 MG PO ×2 (08:17→22:27)
[2024-05-04] MEDS: GLUCOPHAGE 500 MG PO ×2 (08:18→17:19)
[2024-05-04] MEDS: ZESTRIL 5 MG PO (08:18)
[2024-05-04] MEDS: TENORMIN 50 MG PO (08:18)
[2024-05-04] MEDS: SEROQUEL 12.5 MG PO (08:18)
--- NOTE | 2024-05-04 10:18 | W.PN.HOSP.TC ---
Today's Communication/Plan
-
Discharge planning
Assessment / Plan
Assessment / Plan
Physical Exam
General: No Apparent Respiratory Distress, she took off her gown this morning
HEENT: Normocephalic and Anicteric
Respiratory: Clear
Cardiac: S1/S2
GI: Soft and Non Tender
Musculoskeletal: No Clubbing
Skin: Warm
Neuro: patient remains confused, she followed simple commands.
Psych: slightly agitated
79-year-old female with past medical history of dementia, atrial fibrillation on Eliquis, hypertension, hyperlipidemia, type 2 diabetes presenting after fall.
# History of Unspecified psychotic d/o, with hallucinations/non specified- Dementia, with behavior disturbance/ Unspecified Depressive d/o
She had cogwheeling rigidity, tapering Cogentin
Per son, she was seen by a panel of physicians in OP setting including neurologist.
-stopped risperidone, per psych ( high dose for her age),
-Cont clonazepam prn
- She seems stable on Seroquel
-psych had to be consulted for level 2 eval
#Fall
-no fracture
-most likely 2/2 to worsening dementia
-CPK wnl
-F/u TFTs
-F/u UA with straight cath, doubt UTI - cultures negative
-PT/OT
#Afib
cont atenolol, Eliquis
#HLD
#Primary Hypertension
#DM
better controlled
-cont statin, ACEI
-metformin, added on AISS
-add on a1c - 10.2
- Increased Lantus to 20 units 14uqhs, added aspart 4u ac, moderate sliding scale
#DVT ppx
-Eliquis
# Code status, d/w son ( Su), she is DNR
Total time spent to see the patient, examine the patient on the floor, review data and lab results, discuss the treatment plan with the patient, nursing staff around 45 minutes
Anticipated Discharge: Today
Subjective/Interval History
-
Date of Service: May 04, 2024
No fevers
No hypotension
Objective Data
-
Vital Signs:
Vital Signs
Temp Pulse Resp BP Pulse Ox
98.3 F 76 16 109/70 99
05/04/24 07:33 05/04/24 08:18 05/04/24 07:33 05/04/24 08:18 05/04/24 07:33
I&O
05/03/24 05/04/24 05/05/24
06:59 06:59 06:59
Intake Total 480 / 480 690 / 690
Balance 480 / 480 690 / 690
[2024-05-04 11:45] LABS: Glucose - Point of Care 155 mg/dl (70-99)
--- NOTE | 2024-05-04 11:58 | CM ---
Addendum entered by Petrona Saldana 05/04/24 12:20:
transportation forms completed and placed on chart.
Original Note:
Letter received from [facility]. Letter submitted to [facility] and bed available for tomorrow per Molly gaxiola to fax [phone]. Please call report to [phone] and fax to [phone]. CM will call to patient son and POA and review IMM. Patient
son requested CM email IMM to him at [email or web address], and CM will provide form for patient as well. CM will continue to follow for discharge planning needs.
Plan; transfer to SNF tomorrow;requested transfer time is 11am.
[2024-05-04] MEDS: NOVOLOG FLEXPEN-MODERATE RESISTANCE 1 UNITS SC (12:48)
[2024-05-04] MEDS: DULCOLAX 10 MG RECTAL (13:51)
[2024-05-04 13:59] VITALS: BP 125/66; PULSE 59; O2SAT 97
--- NOTE | 2024-05-04 15:14 | W.PN.UPDATE ---
Update Note
Progress Note Update
patient seen chart reviewed. spoke with nursing. the patient continues much the same. she has not had a prn since april 27. nursing reports no issues with agitation. noted hs seroquel inc last evening to 25 mg presumably to help w sleep and calm
through the night. at this point efforts at finding a disposition continue. psych will sign off. please call us if you need us to return
[2024-05-04 15:28] VITALS: BP 107/67
[2024-05-04 17:02] LABS: Glucose - Point of Care 133 mg/dl (70-99)
[2024-05-04] MEDS: NOVOLOG FLEXPEN-MODERATE RESISTANCE SC (17:18)
[2024-05-04 22:08] LABS: Glucose - Point of Care 68 mg/dl (70-99)
[2024-05-04] MEDS: SEROQUEL 25 MG PO (22:27)
[2024-05-04] MEDS: LIPITOR 40 MG PO (22:27)
[2024-05-04 22:32] LABS: Glucose - Point of Care 84 mg/dl (70-99)
[2024-05-04 23:45] VITALS: BP 106/56
[2024-05-05 00:36] LABS: Glucose - Point of Care 221 mg/dl (70-99)
[2024-05-05] MEDS: LANTUS 0.2 UNITS SC (01:07)
[2024-05-05 02:34] LABS: Glucose - Point of Care 169 mg/dl (70-99)
[2024-05-05 03:04] LABS: Glucose - Point of Care 162 mg/dl (70-99)
[2024-05-05 07:40] LABS: Glucose - Point of Care 173 mg/dl (70-99)
[2024-05-05 07:55] VITALS: BP 105/53
[2024-05-05] MEDS: GLUCOPHAGE 500 MG PO (09:40)
[2024-05-05] MEDS: SEROQUEL 12.5 MG PO (09:40)
[2024-05-05] MEDS: ZESTRIL 5 MG PO (09:40)
[2024-05-05] MEDS: LIDOCAINE 4% PATCH 1 PATCH TOPICAL (09:41)
[2024-05-05] MEDS: ELIQUIS 5 MG PO (09:41)
[2024-05-05] MEDS: TENORMIN 50 MG PO (09:41)
[2024-05-05] MEDS: NOVOLOG FLEXPEN-MODERATE RESISTANCE 1 UNITS SC (09:42)
[2024-05-05] MEDS: NOVOLOG FLEXPEN 4 UNITS SC (09:42)
--- NOTE | 2024-05-05 10:28 | W.DCSUMMARY ---
Discharge Summary
Discharge Data
Date of Admission: 04/27/24
Date of Discharge: 05/05/24
-
Pending Results: No
Hospital Course
79 years old female with history of dementia with behavioral disturbances presented with history of falls. She did not have bone fractures or injuries. Scan of the head did not show acute findings. Patient was taking Risperdal. Patient was
evaluated by psychiatrist. She was found to have cogwheel rigidity likely secondary to Risperdal. Risperdal was stopped and added Cogentin. She was maintained on Cogentin for a few days then weaned off. She was started on Seroquel. Her
mentation stabilized. She did not have agitation. She has history of diabetes. She was found to have uncontrolled hyperglycemia. She was started on Lantus and metformin dose was adjusted. She remained hemodynamically stable with a stable blood
pressure. Physical therapy recommended residential facility. Goal of care was discussed with the family and they were informed that patient was likely suffering from advanced form of dementia. Family was reasonable and understanding to the
prognosis including patient's inability to be live independently. Patient was discharged to residential facility in a stable condition.
Discharge Plan
-
Patient Disposition: Assisted/SNF
Discharge Diagnosis/Procedures: History of Dementia with behavior disturbance. Continue with Seroquel. Continue with as needed clonazepam and Seroquel
Diabetes, continue with Lantus, metformin. Monitor blood glucose before meals and at bedtime. Avoid hypoglycemia
Paroxysmal atrial fibrillation
Hyperlipidemia
Diet: As tolerated and Diabetic, Carb Controlled
Referrals:
PRIVATE,PHYSICIAN [Family Provider] -
Prescriptions:
New
metformin 500 mg Tablet
500 mg PO BID@0800,1700 Qty: 10 0RF
bisacodyl 10 mg Suppository
10 mg NE [id number] PRN (Reason: constipation) Qty: 10 0RF
quetiapine 25 mg Tablet
12.5 mg PO Q6HPRN PRN (Reason: agitation) Qty: 10 0RF
quetiapine 25 mg Tablet
25 mg PO HS Qty: 30 0RF
quetiapine 25 mg Tablet
12.5 mg PO DAILY Qty: 30 0RF
polyethylene glycol 3350 [HealthyLax] 17 gram Powder In Packet
17 g PO DAILYPRN PRN (Reason: constipation) Qty: 10 0RF
Insulin Glargine Lantus [Lantus] 20 UNITS
Subcutaneous Insulin Syringe [Syringe-Insulin] 0 UNIT
As Directed mls/hr SC HS
Ordered By: Dexter Guaman MD
Last Taken: 05/05/24 01:07 0.2 mls
clonazepam 0.5 mg tablet
0.5 mg PO TIDPRN PRN (Reason: Anxiety) Qty: 10 0RF
Continued
atorvastatin [Lipitor] 40 mg Tablet
40 mg PO HS
lisinopril 5 mg Tablet
5 mg PO DAILY
atenolol 50 mg Tablet
50 mg PO DAILY
Eliquis 5 mg Tablet
5 mg PO BID
omeprazole 20 mg Tablet,Delayed Release (Dr/Ec)
20 mg PO DAILY
Discontinued
clonazepam 0.5 mg Tablet
0.25 mg PO BIDPRN PRN (Reason: anxiety)
metformin 500 mg Tablet Extended Release 24 Hr
1,000 mg PO DAILY
risperidone [Risperdal] 1 mg Tablet
1 mg PO BID
Discharge Orders:
Discharge Patient (As Directed); Ordered 05/05/24
Ordered By: Dexter Guaman
Discharge Date and Time
Discharge Date/Time: 05/05/24 11:15
Print Language: NIGERIAN
--- NOTE | 2024-05-05 11:20 | CM ---
Pt was discharged to [facility].
No additional needs identified.
== END 2024-05-05 11:15 | DRG 884 ==
LOC: 3 WEST ACU 08:56
PROVIDERS: Nurse Practitioner Family; Physician Assistant; ADMITTING PHYSICIAN Internal Medicine; ATTENDING PHYSICIAN Internal Medicine; CONSULT PHYSICIAN Psychiatry & Neurology Psychiatry; EMERGENCY PHYSICIAN Emergency Medicine
DX: F03.918 Unspecified dementia, unspecified severity, with other behavioral disturbance (principal); R29.898 Other symptoms and signs involving the musculoskeletal system; R29.6 Repeated falls; E11.65 Type 2 diabetes mellitus with hyperglycemia; I48.0 Paroxysmal atrial fibrillation; I10 Essential (primary) hypertension; F32.A Depression, unspecified; E78.5 Hyperlipidemia, unspecified; T43.595A Adverse effect of other antipsychotics and neuroleptics, initial encounter; Y92.9 Unspecified place or not applicable; W01.0XXA Fall on same level from slipping, tripping and stumbling without subsequent striking against object, initial encounter; Y93.01 Activity, walking, marching and hiking; Y92.099 Unspecified place in other non-institutional residence as the place of occurrence of the external cause; Z79.01 Long term (current) use of anticoagulants; Z79.84 Long term (current) use of oral hypoglycemic drugs; Z75.1 Person awaiting admission to adequate facility elsewhere; Z11.52 Encounter for screening for COVID-19
CPT/HCPCS: 70450; 71046; 72125; 73060; 73090; 80048; 80053; 80061; 81003; 81015; 82550; 82962; 83036; 83735; 84443; 84484; 85025; 85027; 87070; 87086; 87811; 93005; 97110; 97116; 97167; 97530; 97535; 99285

== ENCOUNTER → 2024-05-07 11:56 | Outpatient (REF) | payer OTHER, MEDICARE, BC, SELFPAY ==
[2024-05-07 14:13] LABS: Hematocrit 26.4 % (37.0-47.0); Hemoglobin 9.3 g/dL (12.0-16.0); Mean Corp Hgb Conc. 35.2 g/dL (33.0-37.0); Mean Corpuscular Hgb 33.7 pg (27.0-31.0); Mean Corpuscular Volume 95.7 fL (81.0-99.0); Mean Platelet Volume 10.5 fL (7.4-10.4); Platelet Count 206 10^3/uL (130-400); Red Blood Cell Count 2.76 10^6/uL (4.20-5.40); Red Cell Dist. Width 15.4 % (11.5-14.5); White Blood Cell Count 10.7 10^3/uL (4.8-10.8)
[2024-05-07 14:20] LABS: Blood Urea Nitrogen 83 mg/dl (7-17); Calcium 10.6 mg/dl (8.4-10.2); Carbon Dioxide 30 mmol/L (22-30); Chloride 101 mmol/L (98-107); Glucose 251 mg/dl (70-99); Magnesium 1.8 mg/dl (1.6-2.3); Potassium 4.7 mmol/L (3.5-5.1); Sodium 141 mmol/L (135-145)
== END ==
LOC: OLABWHC 11:56
PROVIDERS: ATTENDING PHYSICIAN Family Medicine
DX: F03.A0 Unspecified dementia, mild, without behavioral disturbance, psychotic disturbance, mood disturbance, and anxiety (principal); I10 Essential (primary) hypertension; E11.9 Type 2 diabetes mellitus without complications; K21.9 Gastro-esophageal reflux disease without esophagitis
CPT/HCPCS: 36415; 80048; 83735; 85027

== ENCOUNTER 2024-05-07 22:18 | Inpatient (IN) | payer MEDICARE, BC, SELFPAY ==
[2024-05-07] VITALS (31 sets, daily range): BP systolic 73–128; BP diastolic 32–84
[2024-05-07 18:05] LABS: Glucose - Point of Care 269 mg/dl (70-99)
--- NOTE | 2024-05-07 18:08 | ED.GENMED ---
History of Present Illness
<Domingo Delaney PA-C - Last Filed: 05/07/24 18:49>
General
Chief Complaint: Vaginal Bleeding
Source: patient
Exam Limitations: none
Time Seen by Provider: 05/07/24 18:06
History of Present Illness
History of Present Illness:
79-year-old female presents from [facility] via EMS. Staff noticed vaginal bleeding over the past 2 days. She had been on Eliquis but they stopped it. They noted a drop in her hemoglobin. Patient is initially alert and oriented to
person. She is currently unresponsive per the nursing staff.
Phy Exam
<Domingo Delaney PA-C - Last Filed: 05/07/24 18:49>
Physical Exam
Physical Exam:
General: Ill-appearing female no acute respiratory distress
HEENT: Mucosa dry neck is supple
Heart: Regular rate and rhythm no murmurs
Lungs: Clear abdomen: Soft nontender
exam: There is blood coming from the vaginal orifice
Neurologic exam: Minimally alert does not follow commands tries to speak her name but this is unclear extremities: No cyanosis or edema
Course
<Domingo Delaney PA-C - Last Filed: 05/07/24 18:49>
Orders/Labs/Results
Orders:
Orders
05/07/24 18:08
Type+Screen Urgent
Complete Blood Count/With Diff Urgent
Comprehensive Metabolic Panel Urgent
0.9% Sodium Chloride 1000 ml [Nss] 1,000 ml IV BOLUS
05/07/24 18:15
US Pelvis Transvaginal Only Urgent
Comment:
Reason For Exam: bleeding
05/07/24 18:43
CT Angio Abd/Pelvis w/wo IV [CT Abd/pelvis Angio W/wo Iv] Urgent
Comment:
Reason For Exam: vaginal bleeding
05/07/24 18:53
ABO2 Urgent
BBK Wristband Number:
Associate notified that ABO2 has been ordered: [id number]
Date: 05/07/24
Time: 18:26
Lab Animal Technician ID: [id number]
Protime/PTT Urgent
05/07/24 19:04
Prothrombin Complex(Pcc),Human [Kcentra] 1,591 unit Empty Viaflex Container 100 ml [Viaflex Empty Container] 60 ml IV NOW
Does patient have a dx of serious acute active bleeding?: Yes
Does patient have prior history of HIT?: No
05/07/24 19:29
H&H Stat
05/07/24 19:37
* Blood Bank Products Urgent
Blood Bank Products: *Packed RBC Leuko(PRBC's)
Quantity: 2
Transfuse Today: Yes
Reason: Bleeding
05/07/24 20:21
0.9% Sodium Chloride 1000 ml [Nss] 1,000 ml IV BOLUS
05/07/24 20:33
Blood Culture Urgent
CHELSEA Source: Blood/Venous
Specimen Description:
Cefepime HCl [Maxipime] 2,000 mg IV NOW STA
05/07/24 21:03
Blood Culture Routine
CHELSEA Source: Blood/Venous
Specimen Description:
Abnormal Lab Results
05/07/24 05/07/24 05/07/24
18:03 18:08 18:53
WBC 11.3 H 10^3/uL
(4.8-10.8)
RBC 2.64 L 10^6/uL
(4.20-5.40)
Hgb 9.3 L g/dL
(12.0-16.0)
Hct 25.3 L %
(37.0-47.0)
MCH 35.2 H pg
(27.0-31.0)
RDW 14.7 H %
(11.5-14.5)
Abs Immat Gran (auto) 0.1 H 10^3/uL
(0-0.05)
Absolute Neuts (auto) 9.5 H 10^3/uL
(1.4-6.5)
Absolute Lymphs (auto) 1.0 L 10^3/uL
(1.2-3.4)
Neutrophils % 84.2 H %
(42.2-75.2)
Lymphocytes % 8.4 L %
(20.5-51.1)
PT 17.3 H Sec
(11.4-14.6)
BUN 73 H mg/dl
(7-17)
Creatinine 1.3 H mg/dL
(0.6-1.0)
Glucose 253 H mg/dl
(70-99)
Calcium 10.7 H mg/dl
(8.4-10.2)
Total Bilirubin 2.2 H mg/dl
(0.2-1.3)
Total Protein 6.1 L g/dl
(6.3-8.2)
POC Glucose 269 H mg/dl
(70-99)
Crossmatch IS Only See Detail
05/07/24
19:29
WBC
RBC
Hgb 6.2 L* D g/dL
(12.0-16.0)
Hct 17.6 L* %
(37.0-47.0)
MCH
RDW
Abs Immat Gran (auto)
Absolute Neuts (auto)
Absolute Lymphs (auto)
Neutrophils %
Lymphocytes %
PT
BUN
Creatinine
Glucose
Calcium
Total Bilirubin
Total Protein
POC Glucose
Crossmatch IS Only
05/07/24 19:29
05/07/24 18:08
Vital Signs
Initial and Last Documented VS:
Initial Vital Signs
BP
94/32
05/07/24 17:48
Last Documented Vital Signs
Temp Pulse Resp BP Pulse Ox
98.5 F 89 19 77/53 98
05/07/24 20:30 05/07/24 20:40 05/07/24 20:40 05/07/24 20:40 05/07/24 20:40
<Kerri Gomes, DO - Last Filed: 05/07/24 20:46>
Orders/Labs/Results
Orders:
Orders
05/07/24 18:08
Type+Screen Urgent
Complete Blood Count/With Diff Urgent
Comprehensive Metabolic Panel Urgent
0.9% Sodium Chloride 1000 ml [Nss] 1,000 ml IV BOLUS
05/07/24 18:15
US Pelvis Transvaginal Only Urgent
Comment:
Reason For Exam: bleeding
05/07/24 18:43
CT Angio Abd/Pelvis w/wo IV [CT Abd/pelvis Angio W/wo Iv] Urgent
Comment:
Reason For Exam: vaginal bleeding
05/07/24 18:53
ABO2 Urgent
BBK Wristband Number:
Associate notified that ABO2 has been ordered: [id number]
Date: 05/07/24
Time: 18:26
Lab Animal Technician ID: [id number]
Protime/PTT Urgent
05/07/24 19:04
Prothrombin Complex(Pcc),Human [Kcentra] 1,591 unit Empty Viaflex Container 100 ml [Viaflex Empty Container] 60 ml IV NOW
Does patient have a dx of serious acute active bleeding?: Yes
Does patient have prior history of HIT?: No
05/07/24 19:29
H&H Stat
05/07/24 19:37
* Blood Bank Products Urgent
Blood Bank Products: *Packed RBC Leuko(PRBC's)
Quantity: 2
Transfuse Today: Yes
Reason: Bleeding
05/07/24 20:21
0.9% Sodium Chloride 1000 ml [Nss] 1,000 ml IV BOLUS
05/07/24 20:33
Blood Culture Urgent
CHELSEA Source: Blood/Venous
Specimen Description:
Cefepime HCl [Maxipime] 2,000 mg IV NOW STA
05/07/24 21:03
Blood Culture Routine
CHELSEA Source: Blood/Venous
Specimen Description:
Abnormal Lab Results
05/07/24 05/07/24 05/07/24
18:03 18:08 18:53
WBC 11.3 H 10^3/uL
(4.8-10.8)
RBC 2.64 L 10^6/uL
(4.20-5.40)
Hgb 9.3 L g/dL
(12.0-16.0)
Hct 25.3 L %
(37.0-47.0)
MCH 35.2 H pg
(27.0-31.0)
RDW 14.7 H %
(11.5-14.5)
Abs Immat Gran (auto) 0.1 H 10^3/uL
(0-0.05)
Absolute Neuts (auto) 9.5 H 10^3/uL
(1.4-6.5)
Absolute Lymphs (auto) 1.0 L 10^3/uL
(1.2-3.4)
Neutrophils % 84.2 H %
(42.2-75.2)
Lymphocytes % 8.4 L %
(20.5-51.1)
PT 17.3 H Sec
(11.4-14.6)
BUN 73 H mg/dl
(7-17)
Creatinine 1.3 H mg/dL
(0.6-1.0)
Glucose 253 H mg/dl
(70-99)
Calcium 10.7 H mg/dl
(8.4-10.2)
Total Bilirubin 2.2 H mg/dl
(0.2-1.3)
Total Protein 6.1 L g/dl
(6.3-8.2)
POC Glucose 269 H mg/dl
(70-99)
Crossmatch IS Only See Detail
05/07/24
19:29
WBC
RBC
Hgb 6.2 L* D g/dL
(12.0-16.0)
Hct 17.6 L* %
(37.0-47.0)
MCH
RDW
Abs Immat Gran (auto)
Absolute Neuts (auto)
Absolute Lymphs (auto)
Neutrophils %
Lymphocytes %
PT
BUN
Creatinine
Glucose
Calcium
Total Bilirubin
Total Protein
POC Glucose
Crossmatch IS Only
05/07/24 19:29
05/07/24 18:08
Vital Signs
Initial and Last Documented VS:
Initial Vital Signs
BP
94/32
05/07/24 17:48
Last Documented Vital Signs
Temp Pulse Resp BP Pulse Ox
98.5 F 89 19 77/53 98
05/07/24 20:30 05/07/24 20:40 05/07/24 20:40 05/07/24 20:40 05/07/24 20:40
<Domingo Delaney PA-C - Last Filed: 05/07/24 18:49>
MDM/Problems Addressed
Differential Diagnosis Includes:
Reported vaginal bleeding. Concern for anemia. Will check vital signs and labs. Not hypoxic not tachycardic currently.
<Kerri Gomes DO - Last Filed: 05/07/24 20:46>
*Critical Care Note
Total Time (30-74mins, 75-104mins- exclusive of procedures): 60
comment:
The high probability of a clinically significant, sudden or life threatening deterioration of the hemodynamic system(s) required my full and direct attention, intervention and personal management. The aggregate critical care time was 60 minutes.
This time is in addition to time spent performing reported procedures but includes the following:
[x] Data Review and interpretation
[x] Patient assessment and monitoring of vital signs
[x] Documentation
[x] Medication orders and management
ED Attending Note
<Domingo Delaney PA-C - Last Filed: 05/07/24 18:49>
-
Portions of this chart may have been created with voice recognition software.� Occasional wrong word or��sound alike� substitutions may have occurred due to the inherent limitations of voice recognition software.
<Kerri Gomes DO - Last Filed: 05/07/24 20:46>
ED Attending Note
Patient seen and examined by attending physician: Yes
I performed the substantive portion of visit, reviewed & personally made and approve the management plan that is documented in note by myself or TANIA.: Yes
I performed a history and physical exam of patient and discussed management with resident, I reviewed resident's note and agree with documented findings and plan of care.: Yes
ED Attending Note:
79-year-old female with history of A-fib on Eliquis and dementia presenting from nursing facility for concern of vaginal bleeding. Bleeding has been ongoing for approximately 2 days per per nursing facility, checked her hemoglobin this morning,
noticed an acute drop sent to the emergency department for further evaluation. Patient unable to provide any additional history given her severe dementia. Per nursing facility, patient is able to typically talk, however nonsensical speech.
Patient without any current verbal communication. Vital signs on arrival significant for hypotension.
On exam, patient in no acute distress, however is having active bleeding from vagina. Bleeding is steady, without clear source. No tenderness to the abdomen. No signs of trauma or lacerations to the region. Bleeding appears to be coming from
internal vaginal region. Patient arrives with POLST form, DNR/DNI, however would still like resuscitative measures. Discussion had with patient's son, power of business attorney and TANIA. Patient's laboratory analysis had been checked here, hemoglobin of
9.3, which is an acute drop from prior, in the 11 range. Given a drop of hemoglobin with hypotension, feel that reversal of anticoagulation is indicated. Will administer Kcentra. As for source of bleeding, will plan for CT abdominal imaging and
ultrasound imaging. Disposition will be admission to hospital.
19:35 - Patient's blood pressure continues to drop and called by lab that they believe that the hemoglobin is lower than initial thought. Patient consented for blood. Will start transfusion
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 Will discuss with urology. Blood is currently infusing. Plan for admission to the hospital.
20:45 - In discussion with urology, recommending Davis catheter placement and possible irrigation if there are clots. Will place.
Discharge Plan
Departure
Prescriptions:
No Action
atorvastatin [Lipitor] 40 mg Tablet
40 mg PO HS
lisinopril 5 mg Tablet
5 mg PO DAILY
atenolol 50 mg Tablet
50 mg PO DAILY
Eliquis 5 mg Tablet
5 mg PO BID
bisacodyl 10 mg Suppository
10 mg IA [id number] PRN (Reason: constipation) Qty: 10 0RF
quetiapine 25 mg Tablet
12.5 mg PO Q6HPRN PRN (Reason: agitation) Qty: 10 0RF
quetiapine 25 mg Tablet
25 mg PO HS Qty: 30 0RF
quetiapine 25 mg Tablet
12.5 mg PO DAILY Qty: 30 0RF
polyethylene glycol 3350 [HealthyLax] 17 gram Powder In Packet
17 g PO DAILYPRN PRN (Reason: constipation) Qty: 10 0RF
acetaminophen 325 mg Tablet
650 mg PO Q6HPRN MDD 3000 mg PRN (Reason: mild pain/temp >100)
insulin glargine 100 unit/mL Solution
20 unit SC HS
clonazepam 0.5 mg Tablet
0.5 mg PO [id number] PRN (Reason: anxiety)
pantoprazole 20 mg Tablet,Delayed Release (Dr/Ec)
20 mg PO HS
magnesium hydroxide [Milk of Magnesia] 400 mg/5 mL Suspension
30 ml PO [id number] PRN (Reason: no bm 2 days)
Fleet Enema 19-7 gram/118 mL Enema
118 ml IA DAILYPRN PRN (Reason: constipation, no bm 4 days)
insulin lispro [Humalog Pen] 100 unit/mL Insulin Pen
1 sliding scale dose SC AC
Patient Comments:
05/07/24: 100-199=4u,200-299=6u,300-399=8u
insulin lispro [Humalog Pen] 100 unit/mL Insulin Pen
1 sliding scale dose SC Q8HPRN PRN (Reason: blood sugar)
Patient Comments:
05/07/24: 201-250=2u,251-300=4u,301-350=6u,351-400=8u
metformin 500 mg tablet
500 mg PO BID
clonazepam 0.5 mg tablet
0.5 mg PO Q8HPRN PRN (Reason: Anxiety)
Referrals:
Jean Pierre Carroll MD [Family Provider] -
Interventions
Interventions:
*Risk Screen - Suicide Last Done: 05/07/24 18:10
*General Assessment Last Done: 05/07/24 18:10
*Neglect/Abuse Screening Last Done: 05/07/24 18:10
ED-Female Genitourinary Assessment Last Done: 05/07/24 18:23
Discharge Date and Time
Print Language: ICELANDIC
[2024-05-07] MEDS: NSS 1000 IV ×2 (18:10→20:22)
[2024-05-07 18:26] LABS: % Basophils 0.3 % (0-2); % Immature Granulocytes 0.5 % (0-0.5); % Lymphocytes 8.4 % (20.5-51.1); % Monocytes 4.6 % (1.7-9.3); % Neutrophils 84.2 % (42.2-75.2); Absolute Eosinophils 0.2 10^3/uL (0-0.7); Absolute Immature Granulocytes 0.1 10^3/uL (0-0.05); Absolute Monocytes 0.5 10^3/uL (0.1-0.6); Absolute Neutrophils 9.5 10^3/uL (1.4-6.5); Hematocrit 25.3 % (37.0-47.0); Hemoglobin 9.3 g/dL (12.0-16.0); Mean Corp Hgb Conc. 36.8 g/dL (33.0-37.0); Mean Corpuscular Hgb 35.2 pg (27.0-31.0); Mean Corpuscular Volume 95.8 fL (81.0-99.0); Mean Platelet Volume 10.2 fL (7.4-10.4); Nucleated Red Blood Cells % 0 %; Platelet Count 192 10^3/uL (130-400); Red Blood Cell Count 2.64 10^6/uL (4.20-5.40); Red Cell Dist. Width 14.7 % (11.5-14.5); White Blood Cell Count 11.3 10^3/uL (4.8-10.8)
[2024-05-07 18:41] LABS: ALT (SGPT) 16 U/L (0-35); AST (SGOT) 21 U/L (14-36); Albumin 3.5 g/dl (3.5-5.0); Alkaline Phosphatase 125 U/L (38-126); Blood Urea Nitrogen 73 mg/dl (7-17); Calcium 10.7 mg/dl (8.4-10.2); Carbon Dioxide 28 mmol/L (22-30); Chloride 101 mmol/L (98-107); Glucose 253 mg/dl (70-99); Potassium 4.6 mmol/L (3.5-5.1); Sodium 140 mmol/L (135-145); Total Bilirubin 2.2 mg/dl (0.2-1.3); Total Protein 6.1 g/dl (6.3-8.2); eGFR 41.31
[2024-05-07 19:17] LABS: INR 1.43; PT 17.3 Sec (11.4-14.6)
[2024-05-07 19:18] LABS: APTT 32.7 Sec (23.4-35.0)
[2024-05-07] MEDS: KCENTRA 60 UNIT IV (19:37)
[2024-05-07 19:45] LABS: Hemoglobin 6.2 g/dL (12.0-16.0)
[2024-05-07 19:46] LABS: Hematocrit 17.6 % (37.0-47.0)
[2024-05-07] MEDS: MAXIPIME 2000 MG IV (21:34)
--- NOTE | 2024-05-07 21:59 | HPS.HSE ---
Family Physician
-
Family Physician: Jean Pierre Carroll MD
Chief Complaint
-
vaginal bleeding
History of Present Illness
79-year-old female past medical history of severe dementia, atrial fibrillation on Eliquis, hypertension, hyperlipidemia, type 2 diabetes, presenting with vaginal bleeding. Patient has noticed vaginal bleeding over the past 2 days. She last took
Eliquis this morning as per patient spouse.
Patient is shivering and answering some questions but not completely alert and not a good historian.
Patient was discharged 2 days ago after being admitted for fall. Risperdal was stopped due to rigidity and Cogentin was added.
Medical History
Past Medical History
Past Medical History: Reports Other (severe dementia, atrial fibrillation on Eliquis, hypertension, hyperlipidemia, type 2 diabetes)
Past Surgical History: Reports None
Social History
Tobacco: Non-smoker
Alcohol: None
Drug: None
Family History
Family History: Not pertinent
Allergies / Home Medications
Allergies reflects when Allergies were last updated in [employer].
Home Medications with original date entered in [employer]
Allergy/Medication List:
Allergies
Allergy/AdvReac Type Severity Reaction Status Date / Time
No Known Allergies Allergy Verified 05/07/24 20:49
Home Medications
apixaban 5 mg tablet (Eliquis) 5 mg PO BID Blood Clot Prevention/Tx 04/23/24
atenolol 50 mg tablet 50 mg PO DAILY Blood Pressure 04/23/24
atorvastatin 40 mg tablet (Lipitor) 40 mg PO HS High Cholesterol 04/23/24
lisinopril 5 mg tablet 5 mg PO DAILY Blood Pressure 04/23/24
bisacodyl 10 mg rectal suppository 10 mg WI [id number] PRN constipation #10 ea 05/05/24
polyethylene glycol 3350 17 gram oral powder packet (HealthyLax) 17 g PO DAILYPRN PRN constipation #10 ea 05/05/24
quetiapine 25 mg tablet 12.5 mg (1/2 x 25 mg) PO DAILY #30 tabs 05/05/24
quetiapine 25 mg tablet 12.5 mg (1/2 x 25 mg) PO Q6HPRN PRN agitation #10 tabs 05/05/24
quetiapine 25 mg tablet 25 mg PO HS #30 tabs 05/05/24
acetaminophen 325 mg tablet 650 mg PO Q6HPRN PRN mild pain/temp >100 05/07/24
clonazepam 0.5 mg tablet 0.5 mg PO [id number] PRN anxiety 05/07/24
clonazepam 0.5 mg tablet 0.5 mg PO Q8HPRN PRN Anxiety 05/07/24
insulin glargine 100 unit/mL subcutaneous solution 20 unit SC HS 05/07/24
insulin lispro 100 unit/mL subcutaneous pen 1 sliding scale dose SC AC 05/07/24
insulin lispro 100 unit/mL subcutaneous pen 1 sliding scale dose SC Q8HPRN PRN blood sugar 05/07/24
magnesium hydroxide 400 mg/5 mL oral suspension (Milk of Magnesia) 30 ml PO [id number] PRN no bm 2 days 05/07/24
metformin 500 mg tablet 500 mg PO BID 05/07/24
pantoprazole 20 mg tablet,delayed release 20 mg PO HS 05/07/24
sodium phosphates 19 gram-7 gram/118 mL enema (Fleet Enema) 118 ml WI DAILYPRN PRN constipation, no bm 4 days 05/07/24
Review of Systems
-
History Source: Patient
A 12 point ROS was completed and negative except as noted: Yes
Constitutional: Reports No Symptoms
EENT: Reports No Symptoms
Respiratory: Reports No Symptoms
Cardiac: Reports No Symptoms
Abdomen/GI: Reports No Symptoms
: Reports No Symptoms
Musculoskeletal: Reports No Symptoms
Skin: Reports No Symptoms
Neurological: Reports No Symptoms
Endocrine: Reports No Symptoms
Hematologic/Lymphatic: Reports No Symptoms
Psych: Reports No Symptoms
Physical Exam
Vital Signs
Vital Signs
Temp Pulse Resp BP Pulse Ox
98.5 F 90 22 108/43 97
05/07/24 21:32 05/07/24 21:32 05/07/24 21:32 05/07/24 21:32 05/07/24 20:49
Physical Exam
General: Well Developed, Well Nourished and No Apparent Distress
HEENT: NormoCephalic, Moist mucous membranes and Atraumatic
Respiratory: Clear
Cardiac: S1/S2 and Regular Rhythm; No Murmur or Rub
GI: Soft, Non Distended, Normal Bowel Sounds and Tender (suprapubic ); No Organomegaly
Rectal: Deferred by Provider
Musculoskeletal: No Clubbing, No Cyanosis and No Edema
Skin: No Rash
Neuro: Nonfocal/grossly intact
Laboratory Results
-
05/07/24 19:29
05/07/24 18:08
Laboratory Results
PT 17.3 Sec (11.4-14.6) H 05/07/24 18:53
INR 1.43 05/07/24 18:53
APTT 32.7 Sec (23.4-35.0) 05/07/24 18:53
Total Bilirubin 2.2 mg/dl (0.2-1.3) H 05/07/24 18:08
AST 21 U/L (14-36) 05/07/24 18:08
ALT 16 U/L (0-35) 05/07/24 18:08
Alkaline Phosphatase 125 U/L (38-126) 05/07/24 18:08
Data Reviewed
-
Lab Data: Labs Reviewed by me
Old Records: Reviewed
Impression/Plan
-
IMPRESSION:
PLAN:
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
-Blood pressure initially 80s which is now improved with IV fluids and blood transfusion
-Check urinalysis
-IV fluids
-Zosyn
-Urology consulted and recommended three-way Davis catheter for potential CBI
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
-Hemoglobin dropped from 9.3 to 6.2 within 3 hours
-Kcentra given
-2 units of blood
Dementia with behavioral disturbances
-Hold Seroquel for now due to sepsis
-Patient spouse states that patient is close to normal mental status currently
Paroxysmal atrial fibrillation
-Hold Eliquis
Essential hypertension
-Hold lisinopril
-Hold atenolol
Hyperlipidemia
Type 2 diabetes
-Reduce Lantus to 10 units
-Insulin sliding scale
-Hold metformin
Chronic kidney disease
-Renal function baseline
Anxiety/depression
-Continue as needed clonazepam
DNR/DNI
DVT prophylaxis�SCDs
Regular diet
[2024-05-07 23:31] LABS: Urine Albumin 3+ (Neg - Trace); Urine Bilirubin Negative (Negative); Urine Character Bloody (Clear); Urine Color Red; Urine Glucose Negative (Negative); Urine Ketone Negative (Negative); Urine Leukocyte 1+ (Negative); Urine Nitrite Negative (Negative); Urine Occult Blood 4+ (Negative); Urine Urobilinogen Negative (Neg - 1+)
--- NOTE | 2024-05-07 23:54 | W.PN.URO.CBU ---
Today's Communication / Plan
-
cbi prn major clots no output
Assessment / Plan
-
will hold eliquis await cxs cbi prn clots start broad spctrum iv abs
Diagnosis
-
Date of Service: May 07, 2024
-
Patient Diagnosis:hemorrhagi c emphysematous cytitis
Post Op Day:
Subjective
-
poor cognition
Objective
-
Vital Signs
Temp Pulse Resp BP Pulse Ox
98.3 F 83 20 112/40 100
05/07/24 22:59 05/07/24 23:20 05/07/24 23:20 05/07/24 23:20 05/07/24 23:15
Intake and Output
05/06/24 05/07/24 05/08/24
06:59 06:59 06:59
Intake Total 250 / 250
Output Total 725 / 725
Balance -475 / -475
Intake:
Blood Product Amount Infused ( 250 / 250
mL)
Packed Rbc Leukoreduced Unit 0 / 0
[id number]
Packed Rbc Leukoreduced Unit 250 / 250
[id number]
Output:
Urine, Davis 725 / 725
Laboratory Results
05/07/24 19:29
05/07/24 18:08
Review of Systems
-
: Difficulty Voiding and Bleeding
Physical Exam
-
General - well developed, well nourished, no acute distress
Chest - clear bilaterally
Abdomen - soft, non-tender, positive bowel sounds, no CVAT, no incisional pain or distention
Genitalia - normal
Rectal - normal
Skin - warm & dry with no rash
Neuro - AOx3, no motor deficits
Extremities - no clubbing, no cyanosis, no edema
Incision - clean, dry
Dressing - clean, dry, intact
Care Review
Data Reviewed
Discussed with: Hospitalist and Nursing
CT Scan: Image Pers Reviewed
[2024-05-08] VITALS (50 sets, daily range): BP systolic 79–214; BP diastolic 30–190; BMI 26.8
[2024-05-08 00:15] LABS: Glucose - Point of Care 289 mg/dl (70-99)
[2024-05-08 00:20] LABS: Urine Amorphous Seen; Urine Bacteria Many (Negative); Urine Mucus Many; Urine Red Blood Cell >100 /HPF (0-2); Urine Squamous Cell >30 /LPF (Few); Urine White Cell >100 /HPF (0-5)
[2024-05-08] MEDS: NSS 1000 IV ×3 (00:26→21:10)
[2024-05-08] MEDS: OFIRMEV 100 IV (02:03)
[2024-05-08 02:15] LABS: % Basophils 0.2 % (0-2); % Eosinophils 1.7 % (0-6); % Immature Granulocytes 0.7 % (0-0.5); % Lymphocytes 5.9 % (20.5-51.1); % Monocytes 4.9 % (1.7-9.3); % Neutrophils 86.6 % (42.2-75.2); Absolute Eosinophils 0.1 10^3/uL (0-0.7); Absolute Lymphocytes 0.3 10^3/uL (1.2-3.4); Absolute Monocytes 0.3 10^3/uL (0.1-0.6); Hematocrit 17.8 % (37.0-47.0); Hemoglobin 6.2 g/dL (12.0-16.0); Mean Corp Hgb Conc. 34.8 g/dL (33.0-37.0); Mean Corpuscular Hgb 30.7 pg (27.0-31.0); Mean Corpuscular Volume 88.1 fL (81.0-99.0); Nucleated Red Blood Cells % 0 %; Red Blood Cell Count 2.02 10^6/uL (4.20-5.40); Red Cell Dist. Width 16.5 % (11.5-14.5); White Blood Cell Count 5.8 10^3/uL (4.8-10.8)
[2024-05-08] MEDS: LIPITOR PO (02:36)
[2024-05-08] MEDS: PROTONIX PO (02:36)
--- NOTE | 2024-05-08 02:56 | PTCARENOTE ---
pt received from er- aox1, does not follow commands, very rigid and tense in all extremities. masd with some nonblanchable areas to sacrum and nonblanchable areas to heels- foams applied. cbi initiated per order for blood clots in urine. minimal
clots noted- punch color urine. nsr on monitor, room air. pt hypotensive- ivfb ordered by James damon. labs sent. ekg completed. all safety precautions in place.
[2024-05-08 03:05] LABS: % Basophils 0.2 % (0-2); % Eosinophils 1.6 % (0-6); % Immature Granulocytes 0.4 % (0-0.5); % Lymphocytes 6.8 % (20.5-51.1); % Monocytes 5.5 % (1.7-9.3); % Neutrophils 85.5 % (42.2-75.2); Absolute Eosinophils 0.1 10^3/uL (0-0.7); Absolute Lymphocytes 0.6 10^3/uL (1.2-3.4); Absolute Monocytes 0.5 10^3/uL (0.1-0.6); Absolute Neutrophils 7.7 10^3/uL (1.4-6.5); Hematocrit 28.3 % (37.0-47.0); Hemoglobin 10.1 g/dL (12.0-16.0); Mean Corp Hgb Conc. 35.7 g/dL (33.0-37.0); Mean Corpuscular Hgb 32.4 pg (27.0-31.0); Mean Corpuscular Volume 90.7 fL (81.0-99.0); Mean Platelet Volume 9.9 fL (7.4-10.4); Nucleated Red Blood Cells % 0 %; Platelet Count 147 10^3/uL (130-400); Red Blood Cell Count 3.12 10^6/uL (4.20-5.40); Red Cell Dist. Width 16.4 % (11.5-14.5)
[2024-05-08 03:16] LABS: ALT (SGPT) 12 U/L (0-35); AST (SGOT) 19 U/L (14-36); Albumin 2.4 g/dl (3.5-5.0); Alkaline Phosphatase 98 U/L (38-126); Blood Urea Nitrogen 56 mg/dl (7-17); Calcium 9.4 mg/dl (8.4-10.2); Carbon Dioxide 20 mmol/L (22-30); Chloride 110 mmol/L (98-107); Estimated Creatinine Clearance 38 ml/min; Glucose 218 mg/dl (70-99); Sodium 142 mmol/L (135-145); Total Bilirubin 2.1 mg/dl (0.2-1.3); Total Protein 4.8 g/dl (6.3-8.2)
[2024-05-08] MEDS: LEVOPHED 250 IV (04:42)
[2024-05-08] MEDS: ZOSYN 50 IV ×4 (04:42→21:10)
[2024-05-08] MEDS: LR 250 IV (04:43)
--- NOTE | 2024-05-08 04:56 | PTCARENOTE ---
0230 prisca damon aware of pts bp- 250cc bolus given as per order. levophed started as per order to maintain map>65.
--- NOTE | 2024-05-08 05:43 | PTCARENOTE ---
pt bess in 30s-40s, asymptomatic- alert and talking with rn. James LEE aware no new orders.
--- NOTE | 2024-05-08 08:22 | CON.INTV ---
Consultation
Consultation Request
Date/Time Consultation Requested: 05/08/2024701
Date/Time Consultation Performed: 05/08/2024801
Requesting Provider: Dr. Martinez
Performing Provider: Dr. Sosa
Reason for Consultation: Septic shock
Medical History
-
Chief Complaint: Vaginal bleeding
History of Present Illness:
79-year-old female with a past medical history of dementia, A-fib on Eliquis, hyperlipidemia and DM type II who presents from [place] with vaginal bleeding X 2 days. Patient is usually on Eliquis for history of A-fib and this was stopped about 2
days ago. Of note, she was recently hospitalized here from 04/27 - 05/05/2024 after presenting with fall. She was found to have cogwheel rigidity likely due to Risperdal, which was stopped and Cogentin was started and then eventually weaned off.
Psychiatry consulted at that time. Seroquel was started, and she was discharged to SNF alf on 05/05/2024. When the patient came to the ER on the evening of 05/07/2024, she was afebrile to 97.8 �F, pulse rate 75, breathing at 16 breaths
minute, BP was low at 94/32 and saturating 92% on room air. Labs showed anemia to 6.2, leukocytosis to 11.3, creatinine 1.3, glucose 253, T. bili elevated 2.2, and UA showed +1 leukocyte esterase with >100 WBC + RBC. Blood cultures were
collected, and CT A/P showed suspected emphysematous cystitis. She was given cefepime in the ER + Kcentra and IVF with NS 0.9% x 2L. Levophed was started due to persistent hypotension with SBP in the 80�90s. Patient was also bradycardic with
heart rate in the 40s. Patient was admitted to the ICU for further care and waste specialist services consulted for additional management/recommendations.
Patient seen and evaluated morning. Heart rate 41, saturating 95% on room air, BP 125/44 on Levophed at 2mcg/min. Patient's family members were in the room, including patient's brother, Herman. All questions were answered. Patient does awaken,
especially as the morning hours progressed. She follows simple commands but is confused. Unable to obtain history or ROS given patient's dementia.
PMHx: Dementia, A-fib on Eliquis, hypertension, hyperlipidemia, DM type II
PSHx: Breast surgery, bladder surgery, appendectomy
Past Medical History
Past Medical History: Other (Above as per HPI)
Past Surgical History: Other (Above as per HPI)
Social History
Tobacco: Non-smoker
Alcohol: None
Drug: None
Family History
Family History: Reviewed & Not Pertinent
Allergies / Home Medications
Allergies
Allergy/AdvReac Type Severity Reaction Status Date / Time
No Known Allergies Allergy Verified 05/07/24 20:49
Home Medications
�Medication �Instructions �Recorded �Confirmed �Last Taken �Type
apixaban 5 mg tablet (Eliquis) 5 mg PO BID Blood Clot 04/23/24 05/07/24 04/22/24 History
Prevention/Tx
atenolol 50 mg tablet 50 mg PO DAILY Blood Pressure 04/23/24 05/07/24 04/22/24 History
atorvastatin 40 mg tablet (Lipitor) 40 mg PO HS High Cholesterol 04/23/24 05/07/24 04/22/24 History
lisinopril 5 mg tablet 5 mg PO DAILY Blood Pressure 04/23/24 05/07/24 04/22/24 History
bisacodyl 10 mg rectal suppository 10 mg NV [id number] PRN constipation 05/05/24 05/07/24 Unknown Rx
#10 ea
polyethylene glycol 3350 17 gram 17 g PO DAILYPRN PRN constipation 05/05/24 05/07/24 Unknown Rx
oral powder packet (HealthyLax) #10 ea
quetiapine 25 mg tablet 12.5 mg (1/2 x 25 mg) PO DAILY #30 05/05/24 05/07/24 Unknown Rx
tabs
quetiapine 25 mg tablet 12.5 mg (1/2 x 25 mg) PO Q6HPRN 05/05/24 05/07/24 Unknown Rx
PRN agitation #10 tabs
quetiapine 25 mg tablet 25 mg PO HS #30 tabs 05/05/24 05/07/24 Unknown Rx
acetaminophen 325 mg tablet 650 mg PO Q6HPRN PRN mild 05/07/24 05/07/24 Unknown History
pain/temp >100
clonazepam 0.5 mg tablet 0.5 mg PO [id number] PRN anxiety 05/07/24 05/07/24 Unknown History
clonazepam 0.5 mg tablet 0.5 mg PO Q8HPRN PRN Anxiety 05/07/24 05/07/24 Unknown History
insulin glargine 100 unit/mL 20 unit SC HS 05/07/24 05/07/24 Unknown History
subcutaneous solution
insulin lispro 100 unit/mL 1 sliding scale dose SC AC 05/07/24 05/07/24 Unknown History
subcutaneous pen
insulin lispro 100 unit/mL 1 sliding scale dose SC Q8HPRN PRN 05/07/24 05/07/24 Unknown History
subcutaneous pen blood sugar
magnesium hydroxide 400 mg/5 mL 30 ml PO [id number] PRN no bm 2 days 05/07/24 05/07/24 Unknown History
oral suspension (Milk of Magnesia)
metformin 500 mg tablet 500 mg PO BID 05/07/24 05/07/24 Unknown History
pantoprazole 20 mg tablet,delayed 20 mg PO HS 05/07/24 05/07/24 Unknown History
release
sodium phosphates 19 gram-7 118 ml NV DAILYPRN PRN 05/07/24 05/07/24 Unknown History
gram/118 mL enema (Fleet Enema) constipation, no bm 4 days
Review of Systems
-
Unable to Obtain full review of systems at this time due to: Dementia
Vitals / Labs / Diagnostic Testing
Vital Signs
Temp Pulse Resp BP Pulse Ox
96.7 F L 41 13 108/45 95
05/08/24 08:08 05/08/24 09:00 05/08/24 09:00 05/08/24 09:00 05/08/24 09:00
Lab Data
05/08/24 02:41
05/08/24 02:41
Laboratory Results
05/07/24
18:53
PT 17.3 H
INR 1.43
APTT 32.7
Microbiology
05/07/24 21:42 Blood/Venous Blood Culture - Preliminary
Positive culture in progress
05/07/24 21:42 Blood/Venous Gram Stain - Preliminary
05/07/24 21:42 Blood/Venous Blood Culture - Preliminary
Positive culture in progress
05/07/24 21:42 Blood/Venous Gram Stain - Final
Diagnostic Testing:
Physical Exam
-
HEENT: Normocephalic and Anicteric
Cardiovascular: S1/S2, Murmur (SHANNA, grade III/) and Peripheral Edema (negative)
Respiratory: Wheeze (negative), Rales (negative), Rhonchi (negative) and Non-Labored Respirations
GI: Soft, Non Distended, Non Tender and Normal Bowel Sounds
Neurology: Tremors (negative) and Other (Lethargic, arousable to voice)
Skin: Warm and Dry
General: Respiratory Distress (negative), Chills (negative) and Sweats (negative)
Assessment
-
Assessment: 79-year-old female with a past medical history of dementia, A-fib on Eliquis, hyperlipidemia and DM type II who presents from [place] with vaginal bleeding X 2 days. Patient is usually on Eliquis for history of A-fib and this was
stopped about 2 days ago. Of note, she was recently hospitalized here from 04/27 - 05/05/2024 after presenting with fall. She was found to have cogwheel rigidity likely due to Risperdal, which was stopped and Cogentin was started and then eventually
weaned off. Psychiatry consulted at that time. Seroquel was started, and she was discharged to SNF alf on 05/05/2024. When the patient came to the ER on the evening of 05/07/2024, she was afebrile to 97.8 �F, pulse rate 75, breathing at 16
breaths minute, BP was low at 94/32 and saturating 92% on room air. Labs showed anemia to 6.2, leukocytosis to 11.3, creatinine 1.3, glucose 253, T. bili elevated 2.2, and UA showed +1 leukocyte esterase with >100 WBC + RBC. Blood cultures were
collected, and CT A/P showed suspected emphysematous cystitis. She was given cefepime in the ER + Kcentra and IVF with NS 0.9% x 2L. Levophed was started due to persistent hypotension with SBP in the 80�90s. Patient was also bradycardic with
heart rate in the 40s. Patient was admitted to the ICU for further care and waste specialist services consulted for additional management/recommendations.
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
Impression:
#Septic shock secondary to complicated UTI
#Emphysematous cystitis with hemorrhage
#Bradycardia on Levophed
#Reported vaginal bleeding - no bleeding seen as of today
#Borderline splenomegaly
#Abnormal CXR with medial LLL parenchymal opacity, suspected to be subsegmental atelectasis
#Acute anemia s/p 2 U PRBC on 05/07/2024
#Thrombocytopenia (mild) and likely due to sepsis
#Elevated T. bili
#Chronic anticoagulation use s/p Kcentra
#DM type II (A1C: 10.2 on 04/24/2024) c/b hyperglycemia
#History of paroxysmal A-fib on Eliquis
#Hx of severe dementia
Plan:
- Continue Levophed with goal MAP>65 + HR >50
- Wean as tolerated
- Continue with antibiotics � currently on Zosyn
- Due to presence of shock, she will need total of 10-14 days of ABx
- Narrow ABx as she clinically improves and follow up cultures
- BCx growing Enterobacter on one BCx, other Bcx shows GRN (no species yet) --> follow up species and sensitivities
- IVF - currently on NS at 100cc/hr; continue this for now and check SILVERWARE BUFFER eval to assess swallowing function given her labile mental status + confusion
- Keep NPO for now; if she remains NPO and fails SILVERWARE BUFFER, then she may need DHT for PO meds and TF
- Hold atenolol for now given bradycardia; re-assess daily and once HR >60 then can resume at that time or choose another beta-rut (i.e., metoprolol)
- Urology consulted - recs appreciated; pt was on CBI, which will stop as her bleeding has stopped
- Maintain SpO2 >90-94%
- Aspiration precautions
- Consider repeating CXR in 24-48 hrs to re-assess retrocardiac opacity and see if improves, in which case it is likely atelectasis and not PNA; she is already on ABx regardless
- Monitor Hb with serial CBC; transfuse if needed to keep Hb>7g/dL; keep plt>50k
- Hold off on resuming Eliquis until Hb stable for >48 hrs and she is not clinically bleeding
- Replete electrolytes with K>4, Mg>2
- Maintain euglycemia with goal BG 140-180; start moderate resistance ISS + lantus 20 units HS; if she starts to eat, then start aspart 4 units AC
- prn nebulized bronchodilators - pt not currently bronchospastic
- Incentive spirometer once she wakes up more consistently
- Check TSH with reflex to fT4
- DVT ppx: SCDs
Critical care statement: A total of 40 minutes of critical care time was provided for this patient today. This includes management of unstable vital signs, evaluation of the patient at bedside, reviewing the patient's pertinent medical records
including radiographs, microbiology, laboratory evaluations, and discussion with primary team, consultants, pharmacy, nutrition, physical therapy, case management, charge nurse, critical care nursing, and respiratory therapy.
Data:
CT abdomen/pelvis with/without contrast 05/07/2024:
1. No abdominal aortic aneurysm or dissection. No overt CTA evidence for active GI bleed or fistula.
2. Findings suggesting emphysematous cystitis in the proper clinical context.
3. Borderline splenomegaly.
4. Cystic pancreatic lesion measuring up to 2.0 cm, possibly a pseudocyst or side branch intraductal papillary mucinous neoplasm. Recommend outpatient workup with dedicated MRI/MRCP abdomen without and with gadolinium contrast.
CXR 05/08/2024: Small focus of patchy parenchymal opacity within the medial left lower lung, most likely atelectasis, new from CT examination of May 07, 2024. A small focus of pneumonia is possible but felt to be less likely.
--- NOTE | 2024-05-08 09:38 | W.PN.URO.CBU ---
Today's Communication / Plan
-
stop cbi
Assessment / Plan
-
will hold eliquis await cxs cbi prn clots start broad spctrum iv abs no more bleeding stop cbi maintain pope
Diagnosis
-
Date of Service: May 08, 2024
-
Patient Diagnosis:
Post Op Day:
Patient Diagnosis:hemorrhagi c emphysematous cytitis
Post Op Day:
Subjective
-
non verbal to me but nursing noted quiet pm and hematuria stopped
Objective
-
Vital Signs
Temp Pulse Resp BP Pulse Ox
96.7 F L 41 13 108/45 95
05/08/24 08:08 05/08/24 09:00 05/08/24 09:00 05/08/24 09:00 05/08/24 09:00
Intake and Output
05/07/24 05/08/24 05/09/24
06:59 06:59 06:59
Intake Total 1415 / 1415
Output Total 1575 / 1575
Balance -160 / -160
Intake:
IV fluids (Total) 515 / 515
Nss 1,000 ml @ 100 mls/hr IV . 500 / 500
Q10H [facility] Rx#:[id number]
levophed 15 / 15
IV piggybacks 400 / 400
Blood Product Amount Infused ( 500 / 500
mL)
Packed Rbc Leukoreduced Unit 250 / 250
[id number]
Packed Rbc Leukoreduced Unit 250 / 250
[id number]
Output:
Urine, Pope 1025 / 1025
True Urine Output from CBI 550 / 550
Laboratory Results
05/08/24 02:41
05/08/24 02:41
Review of Systems
-
: Difficulty Voiding
Physical Exam
-
General - well developed, well nourished, no acute distress
Chest - clear bilaterally
Abdomen - soft, non-tender, positive bowel sounds, no CVAT, no incisional pain or distention
Genitalia - normal
Rectal - normal
Skin - warm & dry with no rash
Neuro - AOx3, no motor deficits
Extremities - no clubbing, no cyanosis, no edema
Incision - clean, dry
Dressing - clean, dry, intact
Care Review
Data Reviewed
Discussed with: Nursing
--- NOTE | 2024-05-08 10:00 | PTCARENOTE ---
Rec'd care of patient at 0700. Patient drowsy. Arousable to stimuli. Refusing to open eyes fully. Pupils equal and reactive; +4mm. Patient confused. Oriented only to self. SB on tele monitor. HR in the 40's; dropping to 30's occasionally.
[employer] Supervisor notified. Lung sounds shallow/diminished on RA. +BS. NPO at current time. CBI capped by Urology. Anastasiia output. Levo and NS infusing through peripheral INT. VSS. Order obtained for accuchecks and insulin coverage.
--- NOTE | 2024-05-08 10:43 | CM ---
CM following re: discharge planning.
Reviewed pt's chart, met with pt and pt's at bedside.
Pt is an 79 year old female, admitted with primary dx of Severe sepsis (leukocytosis, hypotension) secondary to emphysematous cystitis.
Pt is not a great historian, psychosocial data obtained from pt's . Pt lives with in an independent apartment at [facility], has 4 supportive children and 3 stepchildren, son Chris has POA [phone]. per , they do not have
children together. Per , pt ambulates with a walker at baseline with his help and pt's stated he cannot help her anymore. Per pt was admitted to [facility] SN[facility] last Tuesday and he expected, pt will return back to [facility].
CM spoke to [facility] liaison, and she confirmed that pt was admitted to [facility] last Tuesday with Letter of determination from [place] [facility] of Mental health and pt will be accepted back based on bed availability. Per liarobert Barnes, [facility]li [facility] is
not needed. Per liarobert Barnes, pt's son Chris is looking for a memory care facility for the pt and in meantime pt will be discharged to [facility] for a short term rehab.
D/C plan: [facility] for a short term rehab based on bed availability.
CM will follow with discharge plan updates as hospitalization progresses
[2024-05-08 12:10] LABS: Glucose - Point of Care 223 mg/dl (70-99)
[2024-05-08] MEDS: NOVOLOG FLEXPEN-MODERATE RESISTANCE 3 UNITS SC (12:16)
[2024-05-08] MEDS: NOVOLIN N vial 0.12 UNITS SC (12:20)
--- NOTE | 2024-05-08 13:05 | PTCARENOTE ---
Patient reassessed. Mentation improving. Patient alert and communicating. Confused and forgetful. Oriented to self. NSR on tele monitor. VSS. Levophed gtt off. No other changes.
--- NOTE | 2024-05-08 14:14 | W.PN.HOSP.TC ---
Today's Communication/Plan
-
cont abx
repeat blood cultures
cbi
wean norepi, map goal >65
monitor cbc, ensure hgb >7
Assessment / Plan
Assessment / Plan
Physical Exam
General: Well Developed, Well Nourished and No Apparent Distress
HEENT: NormoCephalic, Moist mucous membranes and Atraumatic
Respiratory: Clear
Cardiac: S1/S2 and Regular Rhythm; No Murmur or Rub
GI: Soft, Non Distended, Normal Bowel Sounds and Tender (suprapubic ); No Organomegaly
Rectal: Deferred by Provider
Musculoskeletal: No Clubbing, No Cyanosis and No Edema
Skin: No Rash
Neuro: Nonfocal/grossly intact; lethargic
# Septic Shock secondary to #emphysematous cystitis and #bacteremia
-f/u urine cultures
-IV fluids
-Zosyn
-Urology consulted and recommended three-way Davis catheter for potential CBI
-Maintain MAP >65, wean norepinephrine as tolerated
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
-Hemoglobin dropped from 9.3 to 6.2 within 3 hours
-Kcentra given
-2 units of blood
� Hold Eliquis
� CBI in place
� Urology consulted
� Trend CBC, ensure hemoglobin remains greater than 7
#JONELLE on CKD
� Most likely prerenal secondary to hypotension versus septic ATN
� Continue resuscitation and monitor
Dementia with behavioral disturbances
-Hold Seroquel for now due to sepsis/lethargy
-Patient spouse states that patient is close to normal mental status currently
Paroxysmal atrial fibrillation
-Hold Eliquis due to acute bleeding
Essential hypertension
-Hold lisinopril
-Hold atenolol
Hyperlipidemia
Type 2 diabetes
-Reduce Lantus to 10 units
-Insulin sliding scale
-Hold metformin
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
-Recommend outpatient workup with dedicated MRI/MRCP abdomen without and with gadolinium contrast.
Chronic kidney disease
-Renal function baseline
Anxiety/depression
-Continue as needed clonazepam
DNR/DNI
DVT prophylaxis�SCDs
Regular diet
Total time spent on today's encounter was 50 minutes which included time spent in counseling the patient/family regarding diagnosis and treatment plan as listed above, goals of care, and symptom management. Case was discussed with nursing staff,
specialists, and care coordinators/case management. All labs and imaging personally reviewed by me. Remainder the time spent in detailed review of previous records, lab data, imaging, and other medical provider documentation.
Anticipated Discharge: > 48 hours
Subjective/Interval History
-
Date of Service: May 08, 2024
no acute events, on norepi
Objective Data
-
Labs:
Laboratory Results
05/08/24 05/08/24
01:57 02:41
WBC 5.8 9.0
Hgb 6.2 L* 10.1 L D
Hct 17.8 L* 28.3 L
Plt Count Not Reportable 147 D
Sodium Cancelled 142
Potassium Cancelled 4.0
Chloride Cancelled 110 H
Carbon Dioxide Cancelled 20 L
BUN Cancelled 56 H
Creatinine Cancelled 1.0
Glucose Cancelled 218 H
Calcium Cancelled 9.4
Total Bilirubin Cancelled 2.1 H
AST Cancelled 19
ALT Cancelled 12
Alkaline Phosphatase Cancelled 98
Vital Signs:
Vital Signs
Temp Pulse Resp BP Pulse Ox
96.6 F L 72 19 101/86 95
05/08/24 11:19 05/08/24 14:10 05/08/24 14:10 05/08/24 14:10 05/08/24 10:45
I&O
05/07/24 05/08/24 05/09/24
06:59 06:59 06:59
Intake Total 1415 / 1522.5 895.0 / 895.0
Output Total 1575 / 1575 445 / 445
Balance -160 / -52.5 450.0 / 450.0
Review of Systems
-
History Source: Patient
All other systems: Not reviewed unless documented
Data Reviewed
-
Diagnostic Radiology: Image personally visualized and interpreted and Report Reviewed by me
CT Scan: Image personally visualized and interpreted and Report Reviewed by me
Labs: Labs Reviewed by me
--- NOTE | 2024-05-08 16:16 | PTOTSP ---
Dysphagia Evaluation
Patient with acute on chronic elevated risk for dysphagia and aspiration given acute septic shock with chronic dementia. Patient was unable to open eyes, follow commands, had decreased awareness of tasks for eating/drinking, and perseverative
talking with PO in oral cavity at time of this evaluation which elevates acute aspiration risk.
Recommend:
1. Continue temporary NPO
2. Medications - non-oral with essential meds which cannot be given non-orally crushed in puree
3. Aspiration Risk Hydration Protocol - sips of water if awake/alert with full supervision and only after oral care
4. Dysphagia re-evaluation if/when FREDERIC/mentation improves.
[2024-05-08] MEDS: NOVOLOG FLEXPEN SC (16:21)
--- NOTE | 2024-05-08 16:21 | PTCARENOTE ---
Patient evaluated by speech therapist. Patient to remain NPO until mentation improved. No changes in assessment. Vitals stable off Levophed.
[2024-05-08] MEDS: NOVOLOG FLEXPEN-MODERATE RESISTANCE 1 UNITS SC (17:35)
[2024-05-08 17:39] LABS: Glucose - Point of Care 156 mg/dl (70-99)
[2024-05-08 19:29] LABS: Hematocrit 27.8 % (37.0-47.0); Hemoglobin 10.1 g/dL (12.0-16.0); Mean Corp Hgb Conc. 36.3 g/dL (33.0-37.0); Mean Corpuscular Hgb 31.6 pg (27.0-31.0); Mean Corpuscular Volume 86.9 fL (81.0-99.0); Mean Platelet Volume 10.1 fL (7.4-10.4); Platelet Count 153 10^3/uL (130-400); Red Cell Dist. Width 16.5 % (11.5-14.5); White Blood Cell Count 6.8 10^3/uL (4.8-10.8)
--- NOTE | 2024-05-08 20:10 | PTCARENOTE ---
pt received from previous rn- aox1, pt agitated and fidgety in bed, pt remains restrained for safety and pulling at wires/ivs. nsr on monitor, episodes of sinus bradycardia. remains on room air. pope draining idris urine. t turned and repositioned,
pm care provided. all safety precautions in place.
[2024-05-08] MEDS: KLONOPIN 0.5 MG PO (21:10)
[2024-05-08] MEDS: PROTONIX 20 MG PO (21:10)
[2024-05-08] MEDS: LIPITOR 40 MG PO (21:10)
[2024-05-08] MEDS: NOVOLOG FLEXPEN-MODERATE RESISTANCE SC (23:08)
[2024-05-08] MEDS: LANTUS 0.2 UNITS SC (23:08)
[2024-05-08 23:18] LABS: Glucose - Point of Care 115 mg/dl (70-99)
[2024-05-09] VITALS (30 sets, daily range): BP systolic 96–183; BP diastolic 41–110; PULSE 75–94; O2SAT 95; BMI 26.7
--- NOTE | 2024-05-09 00:22 | PTCARENOTE ---
pt resting comfortably, turned and repositioned. assessment unchanged.
--- NOTE | 2024-05-09 01:33 | PTCARENOTE ---
herminio damon aware of pt bradying into the 30s- no new orders. continuing levophed at 4mcg.
--- NOTE | 2024-05-09 04:29 | PTCARENOTE ---
levo off due to hypertension, heart rate remains above 50 and map>65. assessment unchanged. am care provided. labs sent.
[2024-05-09 04:32] LABS: Hematocrit 27.2 % (37.0-47.0); Hemoglobin 9.9 g/dL (12.0-16.0); Mean Corp Hgb Conc. 36.4 g/dL (33.0-37.0); Mean Corpuscular Hgb 31.4 pg (27.0-31.0); Mean Corpuscular Volume 86.3 fL (81.0-99.0); Mean Platelet Volume 9.6 fL (7.4-10.4); Platelet Count 140 10^3/uL (130-400); Red Blood Cell Count 3.15 10^6/uL (4.20-5.40); Red Cell Dist. Width 16.2 % (11.5-14.5); White Blood Cell Count 5.6 10^3/uL (4.8-10.8)
[2024-05-09] MEDS: ZOSYN 50 IV ×4 (05:03→23:09)
[2024-05-09] MEDS: NOVOLOG FLEXPEN-MODERATE RESISTANCE SC ×3 (05:04→18:14)
[2024-05-09 05:12] LABS: Glucose - Point of Care 108 mg/dl (70-99)
[2024-05-09 05:20] LABS: ALT (SGPT) 14 U/L (0-35); AST (SGOT) 28 U/L (14-36); Albumin 2.4 g/dl (3.5-5.0); Alkaline Phosphatase 97 U/L (38-126); Blood Urea Nitrogen 34 mg/dl (7-17); Calcium 9.6 mg/dl (8.4-10.2); Carbon Dioxide 22 mmol/L (22-30); Chloride 114 mmol/L (98-107); Estimated Creatinine Clearance 38 ml/min; Glucose 95 mg/dl (70-99); Magnesium 1.5 mg/dl (1.6-2.3); Phosphorus 2.3 mg/dl (2.5-4.5); Potassium 3.3 mmol/L (3.5-5.1); Sodium 145 mmol/L (135-145); Total Bilirubin 1.6 mg/dl (0.2-1.3); Total Protein 4.7 g/dl (6.3-8.2)
[2024-05-09] MEDS: MAGNESIUM SULFATE 50 IV (06:19)
[2024-05-09] MEDS: KCL 270 MEQ IV (06:24)
--- NOTE | 2024-05-09 08:01 | W.PN.INTV ---
Today's Communication / Plan
Recommendations
Antibiotics with ID consult
Follow-up urine culture species/sensitivities, follow-up remaining blood culture species
Up OOB as tolerated with PT/OT
Restart home anti-HTN with hold parameters
Diet as per ALUM PLANT SUPERVISOR
Re-check CXR tomorrow to re-assess LLL opacity to DDx atelectasis vs PNA
Patient is stable for downgrade out of ICU to telemetry. Dance Entertainer/Pulmonary service will now sign off. Please reconsult if there are any additional questions/concerns, or if patient's respiratory status deteriorates.
Assessment
-
Assessment: 79-year-old female with a past medical history of dementia, A-fib on Eliquis, hyperlipidemia and DM type II who presents from [place] with vaginal bleeding X 2 days. Patient is usually on Eliquis for history of A-fib and this was
stopped about 2 days ago. Of note, she was recently hospitalized here from 04/27 - 05/05/2024 after presenting with fall. She was found to have cogwheel rigidity likely due to Risperdal, which was stopped and Cogentin was started and then eventually
weaned off. Psychiatry consulted at that time. Seroquel was started, and she was discharged to SNF longterm on 05/05/2024. When the patient came to the ER on the evening of 05/07/2024, she was afebrile to 97.8 �F, pulse rate 75, breathing at 16
breaths minute, BP was low at 94/32 and saturating 92% on room air. Labs showed anemia to 6.2, leukocytosis to 11.3, creatinine 1.3, glucose 253, T. bili elevated 2.2, and UA showed +1 leukocyte esterase with >100 WBC + RBC. Blood cultures were
collected, and CT A/P showed suspected emphysematous cystitis. She was given cefepime in the ER + Kcentra and IVF with NS 0.9% x 2L. Levophed was started due to persistent hypotension with SBP in the 80�90s. Patient was also bradycardic with
heart rate in the 40s. Patient was admitted to the ICU for further care and nailing machine operator services consulted for additional management/recommendations.
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
Impression:
#Septic shock secondary to complicated UTI - shock state resolved
#Emphysematous cystitis with hemorrhage
#Bradycardia - now resolved
#Reported vaginal bleeding - no misa bleeding seen since admission
#Borderline splenomegaly
#Abnormal CXR with medial LLL parenchymal opacity, suspected to be subsegmental atelectasis
#Acute anemia s/p 2 U PRBC on 05/07/2024
#Thrombocytopenia (mild) and likely due to sepsis - plt now stable
#Elevated T. bili - improving
#Chronic anticoagulation use s/p Kcentra
#DM type II (A1C: 10.2 on 04/24/2024) c/b hyperglycemia
#History of paroxysmal A-fib on Eliquis
#Hx of severe dementia
Plan:
- Patient doing much better overall, is no longer unresponsive, and is stable hemodynamically, off all vasopressors since this morning
- Maintain MAP>65 + HR >60
- Eventually resume atenolol - may need to adjust dose given she is still septic with HR in 70s
- Continue with antibiotics � currently on Zosyn
- Due to presence of shock on admission, she will need total of 10-14 days of ABx --> due to emphysematous cystitis, consult ID to discuss duration of antibiotics
- Narrow ABx as she clinically improves and follow up cultures
- BCx growing Enterobacter in 2 bottles, other Bcx shows GNR in 1 bottle (no species yet) --> follow up species and sensitivities
- Urine culture growing GNR + yeast � follow-up species + sensitivities
- IVF - currently on NS at 100cc/hr; continue this for now and check ALUM PLANT SUPERVISOR eval to assess swallowing function given her labile mental status + confusion --> stop IVF once starting PO diet
- Urology consulted - recs appreciated; pt was on CBI, which was stopped already
- Maintain SpO2 >90-94%
- Aspiration precautions
- Repeat CXR tomorrow to re-assess retrocardiac opacity and see if improves, in which case it is likely atelectasis and not PNA; she is already on ABx regardless
- Resume Seroquel once she passes ALUM PLANT SUPERVISOR eval
- Monitor Hb with serial CBC; transfuse if needed to keep Hb>7g/dL; keep plt>50k
- Hold off on resuming Eliquis until Hb stable for >48 hrs and she is not clinically bleeding
- Replete electrolytes with K>4, Mg>2
- Maintain euglycemia with goal BG 140-180; continue moderate resistance ISS, + lantus 20 units HS; if she starts to eat, then start aspart 4 units AC
- prn nebulized bronchodilators - pt not currently bronchospastic
- Incentive spirometer
- TSH WNL
- PT/OT
- DVT ppx: SCDs; hold Eliquis until vaginal spotting stable and no bleeding seen with stable Hb for >48 hours
Patient is stable for downgrade out of ICU to telemetry. Dance Entertainer/Pulmonary service will now sign off. Thank you for allowing us to be involved in the care of this patient. Please reconsult if there are any additional questions/concerns, or if
patient's respiratory status deteriorates.
Total time spent today was 75 minutes for this encounter. Time includes reviewing laboratory test/imaging results, reviewing pertinent medical records, obtaining and reviewing medical history, performing an appropriate exam, ordering medications,
tests and procedures. Time also includes documentation of this encounter, coordinating patient care and communicating with other healthcare professionals. Total time does not include separately billed tests performed on this date of service.
Data:
CT abdomen/pelvis with/without contrast 05/07/2024:
1. No abdominal aortic aneurysm or dissection. No overt CTA evidence for active GI bleed or fistula.
2. Findings suggesting emphysematous cystitis in the proper clinical context.
3. Borderline splenomegaly.
4. Cystic pancreatic lesion measuring up to 2.0 cm, possibly a pseudocyst or side branch intraductal papillary mucinous neoplasm. Recommend outpatient workup with dedicated MRI/MRCP abdomen without and with gadolinium contrast.
CXR 05/08/2024: Small focus of patchy parenchymal opacity within the medial left lower lung, most likely atelectasis, new from CT examination of May 07, 2024. A small focus of pneumonia is possible but felt to be less likely.
Subjective Dataa
Subjective Data
Date of Service:
Date of Service: May 09, 2024
Chief Complaint: Dance Entertainer Follow Up
Subjective:
Patient seen and evaluated this morning. She is sitting in chair on room air breathing comfortably. Heart rate 77, BP 135/57 and saturating 95%. CBI clamped since yesterday and pressors off since 4 AM this morning. Little bit of spotting seen
from vagina but no misa blood seen. Patient has been wiggling out of her mitts and also pulling out IVs when not restrained.
Review of Systems
General: Other (Unable to obtain given patient's dementia)
Objective Data
Data Reviewed
Vital Signs / I&O / Oxygen:
Vital Signs
Temp Pulse Resp BP Pulse Ox
99.7 F 75 23 125/56 95
05/09/24 07:30 05/09/24 06:45 05/09/24 06:45 05/09/24 06:45 05/09/24 06:45
Intake and Output
05/08/24 05/09/24 05/10/24
06:59 06:59 06:59
Intake Total 1415 / 1522.5 2645.0 / 2645.0
Output Total 1575 / 1575 1445 / 1445
Balance -160 / -52.5 1200.0 / 1200.0
SaO2 95
Nasal Cannula flow liters per 100
minute
Physical Exam
General: Respiratory Distress (negative), Comfortable and Chills (negative)
HEENT: Normocephalic and Anicteric
Cardiovascular: S1-S2 and Peripheral Edema (negative)
Respiratory: Clear, Wheeze (negative), Crackles (negative), Rhonchi (negative) and Non-Labored Respirations
GI: Soft, Non Distended, Non Tender and Normal Bowel Sounds
Neurology: Awake, Alert and Tremors (negative)
Skin: Warm, Dry, Jaundice (negative) and Rash (negative)
Labs/Micro/Reports
Lab Data
05/09/24 04:14
05/09/24 04:14
Microbiology
05/07/24 22:56 Urine Urine Culture - Preliminary
Gram negative bacilli
Yeast
05/08/24 02:41 Nose MRSA Screen - Final
No Methicillin Resistant Staphylococcus aureus isolated.
05/07/24 21:42 Blood/Venous Blood Culture - Preliminary
Enterobacter species
05/07/24 21:42 Blood/Venous Gram Stain - Final
05/07/24 21:42 Blood/Venous Blood Culture - Preliminary
Positive culture in progress
05/07/24 21:42 Blood/Venous Gram Stain - Final
[2024-05-09] MEDS: NOVOLOG FLEXPEN SC ×2 (08:35→15:47)
[2024-05-09] MEDS: NSS 1000 IV (09:50)
--- NOTE | 2024-05-09 10:23 | PN.CDI ---
CDI
- -
CDI:
Physician Documentation Request
Admit Date: 05/07/24 22:18
Dear Doctor Juan,
Please review the following and provide your response in the progress notes.
Clinical Indicators:
- Patient admit for vaginal bleeding
- ER Physician 'She had been on Eliquis but they stopped it. They noted a drop in her hemoglobin'
- 9/10 PN 'Acute blood loss anemia secondary to emphysematous cystitis'
- 'Hemoglobin dropped from 9.3 to 6.2 within 3 hours'
- Kcentra given
- 2 units PRCBC given
- Eliquis on hold
Please clarify the relationship between these conditions:
Yes, _acute blood loss anemia__ is related to/associated with/exacerbated by _Eliqius__.
No, _acute blood loss anemia__ is not related to/associated with/exacerbated by __Eliqius_ but it is due to . (Please specify)
Unable to determine
Use of terms such as suspected, likely, concern for, or probable (associated with a specific diagnosis that is being evaluated, monitored, or treated as if it exists) are acceptable and can be coded in the inpatient setting, when documented at the
time of discharge.
Thank you,
Tenzin Hill RN
CDI Specialist
Please use your independent medical judgment in providing your response.
--- NOTE | 2024-05-09 10:32 | PN.CDI ---
CDI
- -
CDI:
Physician Documentation Request
Admit Date: 05/07/24 22:18
Dear Doctor Juan,
Please review the following and provide your response in the progress notes.
Clinical Indicators:
- RN skin assessments indicate Stage 1 bilateral heel pressure injury, POA
- 'nonblanchable areas to sacrum and nonblanchable areas to heels'
Physician documentation of the type and location of wounds is required for compliant documentation. Based on the above clinical findings and your assessment, please provide the following in your progress note:
1. Location of the ulcer/wound, including laterality.
2. Type (etiology) of ulcer/wound:
- Diabetic ulcer
- Arterial (ischemic) ulcer
- Traumatic wound
- Venous stasis ulcer
- Pressure (decubitus) ulcer
- Non-healing surgical wound
- Other
- Unable to determine
Use of terms such as suspected, likely, concern for, or probable (associated with a specific diagnosis that is being evaluated, monitored, or treated as if it exists) are acceptable and can be coded in the inpatient setting, when documented at the
time of discharge.
Thank you,
Tenzin Hill RN
CDI Specialist
Please use your independent medical judgment in providing your response.
*Source: National Pressure Ulcer Advisory Panel (NPUAP)
--- NOTE | 2024-05-09 10:47 | PTOTSP ---
Dysphagia Therapy
Patient presents with signs concerning for at least mild oral dysphagia related to dementia/cognitive changes. Consider dysphagia diet with supervision/strategies.
Recommend:
1. IDDSI Level 6 Soft/Bite Sized, IDDSI Level 0 Thin Liquids
2. Medications - in puree
3. Strategies: 1:1 supervision/assistance (can trial self-feeding when unrestrained, with supervision), upright to 90 degrees, small single sips/bites, slow rate, alternate sips/bites, check for pocketing, reduce distractions during meals
4. Oral care 3x daily
5. Dysphagia therapy follow up at the acute care level.
[2024-05-09 12:45] LABS: Glucose - Point of Care 126 mg/dl (70-99)
--- NOTE | 2024-05-09 13:35 | PTCARENOTE ---
systems reviewed, OOB to chair with RW, mitts on but pt continues to fight and removes them, pt removed mitts after reapplying and LFA and RAC IV's removed, reoriented pt and provided distracting activities, pt forgetful and confused, NS @ 100ml,
speech upgraded diet, diet ordered and diabetic coverage adjusted, awaiting orders for pt to be downgraded, otherwise refer to documentation .
--- NOTE | 2024-05-09 15:49 | W.PN.HOSP.TC ---
Addendum entered and electronically signed by Casey Martinez MD 05/09/24 17:46:
Stage 1 bilateral heel pressure injury, POA
acute blood loss anemia__ is exacerbated by _Eliqius_
Original Note:
Today's Communication/Plan
-
cont iv abx
f/u repeat blood cultures
ID consult
Monitor HgB
CBI
Assessment / Plan
Assessment / Plan
Physical Exam
General: Well Developed, Well Nourished and No Apparent Distress
HEENT: NormoCephalic, Moist mucous membranes and Atraumatic
Respiratory: Clear
Cardiac: S1/S2 and Regular Rhythm; No Murmur or Rub
GI: Soft, Non Distended, Normal Bowel Sounds and Tender (suprapubic ); No Organomegaly
Rectal: Deferred by Provider
Musculoskeletal: No Clubbing, No Cyanosis and No Edema
Skin: No Rash
Neuro: Nonfocal/grossly intact; lethargic
# Septic Shock secondary to #emphysematous cystitis and #bacteremia
-Shock resolved
-Enterbacter species in the urine
-f/u urine cultures
-f/u repeat blood cultures
-IV fluids
-Zosyn
-Urology consulted and recommended three-way Davis catheter for potential CBI
-Maintain MAP >65, wean norepinephrine as tolerated
-ID consulted
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
-Hemoglobin dropped from 9.3 to 6.2 within 3 hours
-Kcentra given
-s/p 2 units of blood
� Hold Eliquis
� CBI in place
� Urology consulted
� Trend CBC, ensure hemoglobin remains greater than 7
#JONELLE on CKD
� Most likely prerenal secondary to hypotension versus septic ATN
� Continue resuscitation and monitor
-improving
#Hypokalemia
#Hypomagnesemia
-monitor and replete
Dementia with behavioral disturbances
-Seroquel
-Patient spouse states that patient is close to normal mental status currently
Paroxysmal atrial fibrillation
-Hold Eliquis due to acute bleeding
Essential hypertension
-Hold lisinopril
-Hold atenolol
Hyperlipidemia
Type 2 diabetes
-Increase lantus, aspart
-Insulin sliding scale
-Hold metformin
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
-Recommend outpatient workup with dedicated MRI/MRCP abdomen without and with gadolinium contrast.
Chronic kidney disease
-Renal function baseline
Anxiety/depression
-Continue as needed clonazepam
DNR/DNI
DVT prophylaxis�SCDs
Regular diet
Total time spent on today's encounter was 51 minutes which included time spent in counseling the patient/family regarding diagnosis and treatment plan as listed above, goals of care, and symptom management. Case was discussed with nursing staff,
specialists, and care coordinators/case management. All labs and imaging personally reviewed by me. Remainder the time spent in detailed review of previous records, lab data, imaging, and other medical provider documentation.
Anticipated Discharge: 24 - 48 hours
Subjective/Interval History
-
Date of Service: May 09, 2024
Mental status improved, sitting in chair today
Objective Data
-
Labs:
Laboratory Results
05/09/24
04:14
WBC 5.6
Hgb 9.9 L
Hct 27.2 L
Plt Count 140
Sodium 145
Potassium 3.3 L
Chloride 114 H
Carbon Dioxide 22
BUN 34 H
Creatinine 1.0
Glucose 95
Calcium 9.6
Total Bilirubin 1.6 H
AST 28
ALT 14
Alkaline Phosphatase 97
Vital Signs:
Vital Signs
Temp Pulse Resp BP Pulse Ox
98.1 F 78 20 131/71 95
05/09/24 12:00 05/09/24 12:15 05/09/24 12:15 05/09/24 12:00 05/09/24 08:30
I&O
05/08/24 05/09/24 05/10/24
06:59 06:59 06:59
Intake Total 1415 / 1522.5 2645.0 / 2745.0 900 / 900
Output Total 1575 / 1575 1445 / 1445
Balance -160 / -52.5 1200.0 / 1300.0 900 / 900
Review of Systems
-
History Source: Patient
All other systems: Not reviewed unless documented
Data Reviewed
-
Diagnostic Radiology: Image personally visualized and interpreted and Report Reviewed by me
CT Scan: Image personally visualized and interpreted and Report Reviewed by me
Labs: Labs Reviewed by me
[2024-05-09 17:05] LABS: Glucose - Point of Care 108 mg/dl (70-99)
--- NOTE | 2024-05-09 17:29 | W.PN.URO.CBU ---
Today's Communication / Plan
-
no new gu intervention may remove pope
Assessment / Plan
-
will hold eliquis await cxs cbi prn clots start broad spctrum iv abs no more bleeding stop cbi maintain pope will cnsider removal folet as placed to remove blood and measure outpet
Diagnosis
-
Date of Service: May 09, 2024
-
Patient Diagnosis:
Post Op Day:
Patient Diagnosis:
Post Op Day:
Patient Diagnosis:hemorrhagi c emphysematous cytitis
Post Op Day:
Subjective
-
improving not much recoection as to why he=she came [place]
Objective
-
Vital Signs
Temp Pulse Resp BP Pulse Ox
98.5 F 78 20 131/71 95
05/09/24 16:00 05/09/24 12:15 05/09/24 12:15 05/09/24 12:00 05/09/24 08:30
Intake and Output
05/08/24 05/09/24 05/10/24
06:59 06:59 06:59
Intake Total 1415 / 1522.5 2645.0 / 2745.0 1000 / 1000
Output Total 1575 / 1575 1445 / 1445
Balance -160 / -52.5 1200.0 / 1300.0 1000 / 1000
Intake:
IV fluids (Total) 515 / 622.5 2445.0 / 2545.0 1000 / 1000
Nss 1,000 ml @ 100 mls/hr IV . 500 / 600 2400 / 2500 1000 / 1000
Q10H MIMI Rx#:[id number]
levophed 15 / 22.5 45.0 / 45.0
IV piggybacks 400 / 400 200 / 200
Blood Product Amount Infused ( 500 / 500
mL)
Packed Rbc Leukoreduced Unit 250 / 250
[id number]
Packed Rbc Leukoreduced Unit 250 / 250
[id number]
Output:
Urine, Pope 1025 / 1025 1595 / 1595
True Urine Output from CBI 550 / 550 -150 / -150
Laboratory Results
05/09/24 04:14
05/09/24 04:14
Review of Systems
-
: Difficulty Voiding
Physical Exam
-
General - well developed, well nourished, no acute distress
Chest - clear bilaterally
Abdomen - soft, non-tender, positive bowel sounds, no CVAT, no incisional pain or distention
Genitalia - normal
Rectal - normal
Skin - warm & dry with no rash
Neuro - AOx3, no motor deficits
Extremities - no clubbing, no cyanosis, no edema
Incision - clean, dry
Dressing - clean, dry, intact
Care Review
Data Reviewed
Discussed with: Nursing
[2024-05-09] MEDS: NOVOLOG FLEXPEN 4 UNITS SC (18:14)
[2024-05-09] MEDS: LIPITOR 40 MG PO (23:09)
[2024-05-09] MEDS: LANTUS 0.2 UNITS SC (23:09)
[2024-05-09] MEDS: PROTONIX 20 MG PO (23:09)
[2024-05-09] MEDS: SEROQUEL 25 MG PO (23:09)
[2024-05-10] VITALS (30 sets, daily range): BP systolic 96–182; BP diastolic 40–97; BMI 27.0
--- NOTE | 2024-05-10 00:03 | PTCARENOTE ---
Addendum entered by Magaly Reid RN 05/10/24 01:53:
KCl ordered for K = 3.3, infusing. Levophed gtt ordred to maintain MAP >65, MAP now 91---levophed not started.
Addendum entered by Magaly Reid RN 05/10/24 00:28:
ABG ordered and collected also, results pending.
Original Note:
Pt received at 19:00. Drowsy but arousable. Ox1, intermittently oriented to place. Breath sounds clear t/o, on RA, pulse ox 95-98%. Pt with episodes of bradycardia, 37-40s. EKG obtained while in NSR and sinus bess. Now sustaining in 30s-40s,
continues to be drowsy but arousable. House SIEBEL CONSULTANT made aware. BMP, mg, and CBC ordered and pending. See lab and VS flowsheet.
[2024-05-10 00:12] LABS: Glucose - Point of Care 111 mg/dl (70-99)
[2024-05-10] MEDS: NOVOLOG FLEXPEN-MODERATE RESISTANCE SC ×5 (00:14→16:53)
[2024-05-10] MEDS: NSS 1000 IV (00:35)
[2024-05-10 00:36] LABS: B.E. 0 mmol/L; HCO3 24.8 mmol/L (21-28); O2 Saturation % 98.7 % (94-98); PCO2 40 mmHg (32-35); PO2 90 mmHg (83-108)
[2024-05-10 00:38] LABS: Hematocrit 27.5 % (37.0-47.0); Hemoglobin 9.6 g/dL (12.0-16.0); Mean Corp Hgb Conc. 34.9 g/dL (33.0-37.0); Mean Corpuscular Hgb 32.3 pg (27.0-31.0); Mean Corpuscular Volume 92.6 fL (81.0-99.0); Mean Platelet Volume 9.9 fL (7.4-10.4); Platelet Count 141 10^3/uL (130-400); Red Blood Cell Count 2.97 10^6/uL (4.20-5.40); Red Cell Dist. Width 15.9 % (11.5-14.5); White Blood Cell Count 4.5 10^3/uL (4.8-10.8)
[2024-05-10 00:43] LABS: Blood Urea Nitrogen 27 mg/dl (7-17); Calcium 9.3 mg/dl (8.4-10.2); Carbon Dioxide 24 mmol/L (22-30); Chloride 114 mmol/L (98-107); Estimated Creatinine Clearance 42 ml/min; Glucose 111 mg/dl (70-99); Magnesium 1.8 mg/dl (1.6-2.3); Potassium 3.3 mmol/L (3.5-5.1); Sodium 147 mmol/L (135-145); eGFR > 60.00
[2024-05-10] MEDS: KCL 270 MEQ IV (01:15)
--- NOTE | 2024-05-10 02:28 | W.PN.UPDATE ---
Update Note
Progress Note Update
RN notified MOLD STACKER HR sustaining 37-40's BP 118/42 RR 14 Ra 97% BS 111. EkG noted Sinus bess, no antiarrhythmics, didn't receive beta blockers, no hx of sleep apnea or usage of Bippap. Drowsy but arousable. CBC, Mag, BMP, ABG ordred
lab results noted. K3.3 will order KCL 49meq IV.
patient seen and evaluated, Patient sleeping, no apparent distress, MAP noted to be 59, started Levo drip
will check labs in AM
Patient did not receive Levophed drip as BP 150's/70's, HR currently in 60's but continuos to dip down to 40's.
consult placed for [employer]
--- NOTE | 2024-05-10 02:36 | PTCARENOTE ---
Levophed ordered to keep MAP >65. Pt upgraded to IMU level of care due to levophed order. Levophed not started--at 01:51 MAP = 91.
[2024-05-10] MEDS: ZOSYN 50 IV ×2 (04:40→10:53)
[2024-05-10 06:49] LABS: Hematocrit 30.9 % (37.0-47.0); Hemoglobin 10.7 g/dL (12.0-16.0); Mean Corp Hgb Conc. 34.6 g/dL (33.0-37.0); Mean Corpuscular Hgb 32.1 pg (27.0-31.0); Mean Corpuscular Volume 92.8 fL (81.0-99.0); Mean Platelet Volume 9.9 fL (7.4-10.4); Platelet Count 142 10^3/uL (130-400); Red Blood Cell Count 3.33 10^6/uL (4.20-5.40); Red Cell Dist. Width 16.1 % (11.5-14.5)
[2024-05-10 07:09] LABS: ALT (SGPT) 16 U/L (0-35); AST (SGOT) 29 U/L (14-36); Albumin 2.5 g/dl (3.5-5.0); Alkaline Phosphatase 106 U/L (38-126); Blood Urea Nitrogen 26 mg/dl (7-17); Calcium 9.6 mg/dl (8.4-10.2); Carbon Dioxide 26 mmol/L (22-30); Chloride 113 mmol/L (98-107); Estimated Creatinine Clearance 47 ml/min; Glucose 73 mg/dl (70-99); Magnesium 1.9 mg/dl (1.6-2.3); Phosphorus 2.4 mg/dl (2.5-4.5); Potassium 4.1 mmol/L (3.5-5.1); Sodium 146 mmol/L (135-145); Total Bilirubin 1.4 mg/dl (0.2-1.3); eGFR > 60.00
--- NOTE | 2024-05-10 07:45 | CON.CAR ---
Addendum entered and electronically signed by Mitul Tidwell DO 05/10/24 11:49:
I saw and examined the patient.
The Machining Supervisor's note was reviewed and I agree with the note.
Comment:
Plan:
Bradycardia in setting of lethargy in setting of sepsis.
Stop Atenolol for now. Monitor bps. BP stable.
Check echo to eval for structural heart disease.
Resume Eliquis once ok with primary service. Currently held with vaginal bleeding
Discussed with nursing.
Addendum entered and electronically signed by ROSA Atkinson 05/10/24 09:24:
.
Original Note:
Medical History
-
Chief Complaint: vaginal bleeding
History of Present Illness:
79-year-old female with history of Paroxysmal A-fib (on Eliquis and atenolol), hyperlipidemia, type 2 diabetes, dementia who presented to the ED on 05/07/2024 with vaginal bleeding x 2 days. She was found to have septic shock secondary to
emphysematous cystitis as well as anemia due to acute blood loss and JONELLE on CKD. She was started on Levophed, antibiotics. Hgb 6.4 on 05/07/24 and Eliquis was stopped. creat 1.4 05/07/24.
Of note she had an admission to 04/27/24-05/05/24 for behavioral disturbance, dementia, falls. Head CT showed no acute findings. She was seen by psych. Risperdal was thought to have caused cogwheel rigidity and it was changed to Cogentin, which
was later weaned off and she was changed to Seroquel and discharged to SNF.
Last night HR on telemetry was noted to drop to 30s with drop in MAP to 59. She was sleeping at the time. She was going to be started on Levophed but BPs and HRs improved. Atenolol was stopped.
She denies dizziness, lightheadedness, syncope, shortness of breath, chest pain, palpitations.
PMH:
paroxysmal afib (on Eliquis and Atenolol)
DM Type 2
dementia
hyperlipidemia
Past Medical History
Past Medical History: Other (as above)
Past Surgical History: Other (Breast surgery, bladder surgery, appendectomy)
Family History
Family History: Reviewed & Not Pertinent
Allergies / Home Medications
Allergy/AdvReac Type Severity Reaction Status Date / Time
No Known Allergies Allergy Verified 05/07/24 20:49
�Medication �Instructions �Recorded �Confirmed �Type
apixaban 5 mg tablet (Eliquis) 5 mg PO BID Blood Clot 04/23/24 05/07/24 History
Prevention/Tx
atenolol 50 mg tablet 50 mg PO DAILY Blood Pressure 04/23/24 05/07/24 History
atorvastatin 40 mg tablet (Lipitor) 40 mg PO HS High Cholesterol 04/23/24 05/07/24 History
lisinopril 5 mg tablet 5 mg PO DAILY Blood Pressure 04/23/24 05/07/24 History
bisacodyl 10 mg rectal suppository 10 mg MA [id number] PRN constipation 05/05/24 05/07/24 Rx
#10 ea
polyethylene glycol 3350 17 gram 17 g PO DAILYPRN PRN constipation 05/05/24 05/07/24 Rx
oral powder packet (HealthyLax) #10 ea
quetiapine 25 mg tablet 12.5 mg (1/2 x 25 mg) PO Q6HPRN 05/05/24 05/07/24 Rx
PRN agitation #10 tabs
acetaminophen 325 mg tablet 650 mg PO Q6HPRN PRN mild 05/07/24 05/07/24 History
pain/temp >100
clonazepam 0.5 mg tablet 0.5 mg PO [id number] PRN anxiety 05/07/24 05/07/24 History
clonazepam 0.5 mg tablet 0.5 mg PO Q8HPRN PRN Anxiety 05/07/24 05/07/24 History
insulin glargine 100 unit/mL 20 unit SC HS Diabetes 05/07/24 05/07/24 History
subcutaneous solution
insulin lispro 100 unit/mL 1 sliding scale dose SC AC Diabetes 05/07/24 05/07/24 History
subcutaneous pen
insulin lispro 100 unit/mL 1 sliding scale dose SC Q8HPRN PRN 05/07/24 05/07/24 History
subcutaneous pen DIABETES
magnesium hydroxide 400 mg/5 mL 30 ml PO [id number] PRN no bm 2 days 05/07/24 05/07/24 History
oral suspension (Milk of Magnesia)
metformin 500 mg tablet 500 mg PO BID Diabetes 05/07/24 05/07/24 History
pantoprazole 20 mg tablet,delayed 20 mg PO HS Gastrointestinal Issue 05/07/24 05/07/24 History
release
sodium phosphates 19 gram-7 118 ml MA DAILYPRN PRN 05/07/24 05/07/24 History
gram/118 mL enema (Fleet Enema) constipation, no bm 4 days
quetiapine 25 mg tablet 12.5 mg PO DAILY Mental 05/08/24 05/07/24 History
Health/Anxiety
quetiapine 25 mg tablet 25 mg PO HS Mental Health/Anxiety 05/08/24 05/07/24 History
Review of Systems
-
Unable to obtain full review of systems at this time due to: Dementia
History Source: Patient
All other systems: Negative unless noted
Physical Exam
Vital Signs
Temp Pulse Resp BP Pulse Ox
98.5 F 69 17 182/70 97
05/10/24 07:26 05/10/24 06:30 05/10/24 06:30 05/10/24 06:30 05/10/24 06:30
Lab Results
05/10/24 06:18
05/10/24 06:18
GEN: No distress, awake
HEENT: supple, anicteric, mmm
LUNGS: CTA, no wheezes/rales
CV: Reg, S1/S2, 1/6 syst LSB
ABD: soft, BS+, NT/ND
EXT: No edema
NEURO: Gross non-focal
SKIN: No rash
Impression / Plan
-
PCP: Jean Pierre Carroll
Cardiovascular Diagnostic studies:
EKG 05/10/24 personally reviewed: Sinus bradycardia
telemetry personally reviewed: SB/NSR 30s-70s
Impression:
Bradycardia
pafib
Type 2 DM
hyperlipidemia
sepsis due to emphysematous cystitis
acute blood loss due to vaginal bleeding
dementia
falls
Plan:
-hold Atenolol and continue to monitor on telemetry
-check echo-I ordered
-resume Eliquis when appropriate per primary team
-continue Lipitor
-contine Lisinopril
--- NOTE | 2024-05-10 08:19 | PN.CDI ---
CDI
- -
CDI:
Physician Documentation Request
Admit Date: 05/07/24 22:18
Dear Doctor Juan,
Please review the following and provide your response in the progress notes.
Clinical Indicators:
- 05/09 PN 'JONELLE on CKD' without specificity
Laboratory Tests
05/07/24 05/08/24 05/09/24
18:08 02:41 04:14
Creatinine 1.3 H 1.0 1.0
Estimated Creat Clear 38 38
eGFR 41.31 56.60 56.60
05/10/24 05/10/24
00:11 06:18
Creatinine 0.9 0.9
Estimated Creat Clear 42 47
eGFR > 60.00 > 60.00
Please clarify which of the following accurately represents the patient's renal status:
JONELLE on CKD 2
JONELLE on CKD 3
Other
Stages of Chronic Kidney Disease*
Level Description GFR
G1 Normal or High >90
G2 Mildly decreased 60-89
G3a Mildly to moderately decreased 45-59
G3b Moderately to severely decreased 30-44
G4 Severely decreased 15-29
G5 Kidney failure <15
Use of terms such as suspected, likely, concern for, or probable (associated with a specific diagnosis that is being evaluated, monitored, or treated as if it exists) are acceptable and can be coded in the inpatient setting, when documented at the
time of discharge.
Thank you,
Tenzin Hill RN
CDI Specialist
Please use your independent medical judgment in providing your response.
*Source: Kidney Disease: Improving Global Outcomes (KDIGO) 2012
[2024-05-10] MEDS: NOVOLOG FLEXPEN SC ×2 (08:50→12:12)
[2024-05-10] MEDS: SEROQUEL 12.5 MG PO (08:51)
[2024-05-10] MEDS: ZESTRIL 5 MG PO (08:51)
[2024-05-10] MEDS: MAGNESIUM SULFATE 50 IV (10:53)
--- NOTE | 2024-05-10 11:14 | CON.ID ---
Addendum entered and electronically signed by Amy Moser MD 05/10/24 13:53:
I personally performed a history and physical exam of the patient and discussed management with the resident. I reviewed the resident's note and agree with the documented findings and plan of care HPI/CC.
# Complicated UTI in setting of gross hematuria/clot retention
# Klebsiella pneumoniae bacteremia, urine source
# JONELLE improved
# Septic shock, present on admission, now resolved
# hx afib on Eliquis (on hold)
- Follow repeat blood cx.
-Narrow Zosyn to ceftriaxone 1g IV q24.
D/W Dr. Martinez
Original Note:
Consultation
-
Date/Time Consultation Requested: 05-09-24
Date/Time Consultation Performed: 05-10-24
Requesting Provider: Dr. oSsa
Performing Provider: Dr. Moser
Reason for Consultation: septic shock secondary to emphysematous cystitis
Chief Complaint / Past History
Chief Complaint
bleeding
History of Present Illness
Maricel Richter, age 79, came to the hospital on 05-07-24 with 2 days of vaginal bleeding. Her medical history is significant for severe dementia, type II diabetes mellitus and atrial fibrillation on apixaban. Her apixaban was held when the
bleeding had began. In the emergency, she was found to have hypotension, acutely worsening anemia, acute kidney injury and leukocytosis. CT AP findings were suggestive of emphysematous cystitis. She received 1 dose of cefepime and Davis was placed
per urology recommendations in the emergency. She was started on piperacillin-tazobactam on admission. She was also started on norepinephrine due to hypotension not responsive to IV fluids, and admitted to the ICU. Blood cultures *2 and urine
culture grew Klebsiella pneumoniae. Now off pressors. Vitals have stabilized and blood work normalized. Davis is draining normal urine without blood.
Past History
Past Medical History: Other (atrial fibrillation on apixaban, dementia with behavioral disturbances, hypertension, hyperlipidemia, type II diabetes mellitus, anxiety, insomnia, gastroesophageal reflux disease)
Past Surgical History: None
Allergy History:
No Known Allergies Allergy (Verified 05/07/24 20:49)
Medications Reviewed: Yes
Social History
Tobacco: Non-Smoker
Alcohol: None
Drug: None
Employment: Retired
Family History
Family History: Not Pertinent
Review of Systems
Review of Systems
General: Negative Fever or Chills
Cardiovascular: Negative Chest Pain or Palpitations
Respiratory: Negative Dyspnea or Cough
Gasteroenterology: Negative Nausea or Vomiting
Genital / Urological: Negative Dysuria, Hematuria or Flank Pain
Endocrine: Negative Weakness or Fatigue
Neurological: Negative Headache or Dizziness
Vital Signs
Temp Pulse Resp BP Pulse Ox
98.5 F 59 21 141/69 98
05/10/24 09:23 05/10/24 09:23 05/10/24 09:23 05/10/24 09:23 05/10/24 09:26
Physical Exam
Physical Exam
Constitutional: No Acute Distress and Comfortable
Head: Normocephalic
Eyes: Pupils Equal and Sclera Anicteric
Pharynx: Benign
Cardiovascular: Regular Rate and S1/S2
Pulmonary: Clear and Non Labored
Gastrointestinal: Soft, Non Tender and Non Distended
Genito-Urinary: Davis
Extremities: Negative Edema, Clubbing or Cyanosis
Musculoskeletal: Negative Joint Swelling or Joint Effusion
Wound: None
Neurological: Awake and Other (Apparent dementia); Negative Alert or Oriented
Psychological: Calm and Other
Lab / Diagnostic Study Results
05/10/24 06:18
05/10/24 06:18
Abs Immat Gran (auto) 0.0 10^3/uL (0-0.05) 05/08/24 02:41
Absolute Neuts (auto) 7.7 10^3/uL (1.4-6.5) H 05/08/24 02:41
Absolute Lymphs (auto) 0.6 10^3/uL (1.2-3.4) L 05/08/24 02:41
Absolute Monos (auto) 0.5 10^3/uL (0.1-0.6) 05/08/24 02:41
Absolute Basos (auto) 0.0 10^3/uL (0-0.2) 05/08/24 02:41
Immature Gran % 0.4 % (0-0.5) 05/08/24 02:41
Neutrophils % 85.5 % (42.2-75.2) H 05/08/24 02:41
Lymphocytes % 6.8 % (20.5-51.1) L 05/08/24 02:41
Monocytes % 5.5 % (1.7-9.3) 05/08/24 02:41
Eosinophils % 1.6 % (0-6) 05/08/24 02:41
Basophils % 0.2 % (0-2) 05/08/24 02:41
PT 17.3 Sec (11.4-14.6) H 05/07/24 18:53
INR 1.43 05/07/24 18:53
Ur Squamous Epith Cells >30 /LPF (Few) 05/07/24 22:56
Microbiology Results
Micro:
05/07/24 22:56 Urine Culture - Final
Urine Klebsiella pneumoniae
Rubi albicans
05/07/24 21:42 Blood Culture - Final
Blood/Venous Klebsiella pneumoniae
Gram Stain - Final
05/07/24 21:42 Blood Culture - Final
Blood/Venous Klebsiella pneumoniae
Gram Stain - Final
05/08/24 19:21 Blood Culture - Preliminary
Blood/Venous No Growth in 24 hours- Final report to follow
05/09/24 14:51 Blood Culture - Pending
Blood/Venous
05/08/24 02:41 MRSA Screen - Final
Nose No Methicillin Resistant Staphylococcus aureus isolated.
05-07-24: CT AP: 1. No abdominal aortic aneurysm or dissection. No overt CTA evidence for active GI bleed or fistula. 2. Findings suggesting emphysematous cystitis in the proper clinical context. 3. Borderline hepatomegaly. 4. Cystic pancreatic
lesion measuring up to 2.0 cm, possibly a pseudocyst or side branch intraductal papillary mucinous neoplasm.
05-08-24: CXR: Small focus of patchy parenchymal opacity within the medial left lower lung, most likely atelectasis, new from CT examination of May 07, 2024. A small focus of pneumonia is possible but felt to be less likely.
05-10-24: CXR: Suspected small left basilar opacity without significant change. Recommend PA and lateral views when able to be obtained.
Assessment / Plan
Hemorrhagic emphysematous cystitis
Klebsiella pneumoniae bacteremia
Septic shock secondary to above, resolved
Acute urinary retention, presence of Davis since 05-07-24
- Likely began in the setting of bleeding while on apixaban.
- Fevers and leukocytosis now resolved.
- Davis draining urine without blood.
- Hemoglobin now stable and JONELLE resolved.
- Narrow piperacillin-tazobactam to ceftriaxone.
- Follow CBC and temperature curve.
Acute blood loss anemia, status-post transfusion and stable
Acute kidney injury on chronic kidney disease, stage IIIa, resolved
Hypokalemia
Hypomagnesemia
Cystic pancreatic lesion
Conditions known prior to admission:
Paroxysmal atrial fibrillation on apixaban
Dementia with behavioral disturbances
Hypertension
Hyperlipidemia
Type II diabetes mellitus
Anxiety
Insomnia
Gastroesophageal reflux disease
[2024-05-10] MEDS: TYLENOL 650 MG PO (11:27)
[2024-05-10 11:50] LABS: Glucose - Point of Care 120 mg/dl (70-99)
--- NOTE | 2024-05-10 12:23 | PTCARENOTE ---
Updated assessment. Patient more interactive with staff at this assessment. VSS and as documented/ongoing. Continue with supportive cares and teaching with constant reorientation. Full assist for transport, full assist for meals. Patient able to
express needs, likes dislikes with staff and team members. Await PT/OT. Presently in and out of bed to chair full assist. Stand and sit practice with full assist. Continue supportive cares. Follow up plan of cares with telemetry downgrade from IMU
status. Levophed never started this or previous shift. Follow up cardiology consult at bedside with and cardiology. Will continue hourly rounds, safety checks and nutritional support.. Continue to reinforce plan of cares with patient and family.
--- NOTE | 2024-05-10 13:42 | W.PN.HOSP.TC ---
Today's Communication/Plan
-
cbi stopped - pope in place
holding eliquis until cleared by urology
switch to ceftriaxone, f/u blood culture clearance
stop atenolol
f/u echo
monitor bp
can be dged to tele
closely monitor Na
Assessment / Plan
Assessment / Plan
Physical Exam
General: Well Developed, Well Nourished and No Apparent Distress
HEENT: NormoCephalic, Moist mucous membranes and Atraumatic
Respiratory: Clear
Cardiac: S1/S2 and Regular Rhythm; No Murmur or Rub
GI: Soft, Non Distended, Normal Bowel Sounds and Tender (suprapubic ); No Organomegaly
Rectal: Deferred by Provider
Musculoskeletal: No Clubbing, No Cyanosis and No Edema
Skin: No Rash
Neuro: Nonfocal/grossly intact; lethargic
# Septic Shock secondary to #emphysematous cystitis and #bacteremia
-Shock resolved
-Klebsiella pneumoniae
-f/u repeat blood cultures
-Zosyn - switch to ceftriaxone
-Urology consulted and recommended three-way Pope catheter for potential CBI
-Maintain MAP >65, wean norepinephrine as tolerated
-ID consulted
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
-Hemoglobin dropped from 9.3 to 6.2 within 3 hours
-Kcentra given
-s/p 2 units of blood
� Hold Eliquis - awaiting clearance from urology
� CBI stopped today, pope in place - monitor urine
� Urology consulted
� Trend CBC, ensure hemoglobin remains greater than 7
#JONELLE on CKD
� Most likely prerenal secondary to hypotension versus septic ATN
� Continue resuscitation and monitor
-improving
#Hypernatremia
� Monitor with resuscitation
#Hypokalemia
#Hypomagnesemia
-monitor and replete
Dementia with behavioral disturbances
-Seroquel
-Patient spouse states that patient is close to normal mental status currently
Paroxysmal atrial fibrillation
Bradycardia
-Hold Eliquis due to acute bleeding, await clearance from urology
-hold atenolol
-cardiology consulted
-tele
-echo
Essential hypertension
-lisinopril
-Hold atenolol
Hyperlipidemia
Type 2 diabetes
-Increase lantus, aspart
-Insulin sliding scale
-Hold metformin
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
-Recommend outpatient workup with dedicated MRI/MRCP abdomen without and with gadolinium contrast.
Chronic kidney disease
-Renal function baseline
Anxiety/depression
-Continue as needed clonazepam
DNR/DNI
DVT prophylaxis�SCDs
Regular diet
Total time spent on today's encounter was 52 minutes which included time spent in counseling the patient/family regarding diagnosis and treatment plan as listed above, goals of care, and symptom management. Case was discussed with nursing staff,
specialists, and care coordinators/case management. All labs and imaging personally reviewed by me. Remainder the time spent in detailed review of previous records, lab data, imaging, and other medical provider documentation.
Anticipated Discharge: > 48 hours
Subjective/Interval History
-
Date of Service: May 10, 2024
Bradycardic last night, held atenolol. Cardiology consulted. Otherwise sitting in chair resting comfortably
Objective Data
-
Labs:
Laboratory Results
05/10/24
06:18
WBC 5.0
Hgb 10.7 L
Hct 30.9 L
Plt Count 142
Sodium 146 H
Potassium 4.1
Chloride 113 H
Carbon Dioxide 26
BUN 26 H
Creatinine 0.9
Glucose 73
Calcium 9.6
Total Bilirubin 1.4 H
AST 29
ALT 16
Alkaline Phosphatase 106
Vital Signs:
Vital Signs
Temp Pulse Resp BP Pulse Ox
97.9 F 78 20 159/71 98
05/10/24 11:50 05/10/24 12:00 05/10/24 12:00 05/10/24 12:00 05/10/24 12:06
I&O
05/09/24 05/10/24 05/11/24
06:59 06:59 06:59
Intake Total 2645.0 / 2745.0 1270 / 1270 480 / 480
Output Total 1445 / 1445 750 / 750 150 / 150
Balance 1200.0 / 1300.0 520 / 520 330 / 330
Review of Systems
-
History Source: Patient
All other systems: Not reviewed unless documented
Data Reviewed
-
Diagnostic Radiology: Image personally visualized and interpreted and Report Reviewed by me
CT Scan: Image personally visualized and interpreted and Report Reviewed by me
Labs: Labs Reviewed by me
--- NOTE | 2024-05-10 14:33 | CM ---
CM following re: discharge planning.
Reviewed pt's chart, met with pt.
Pt lives with in an independent apartment at [facility], has 4 supportive children and 3 stepchildren, son Chris has POA [phone]. Pt ambulates with a walker at baseline with his help and pt's cannot help her anymore. Pt was
admitted to [facility] last Tuesday and a plan is for pt to return back to [facility].
CM spoke to [facility] liaison, and she confirmed that pt was admitted to [facility] last Tuesday with Letter of determination from [place] Department of Mental health and pt will be accepted back based on bed availability. Per liarobert Barnes, new PAS[facility] is
not needed. Per minor Barnes, pt's son Chris is looking for a memory care facility for the pt and in meantime pt will be discharged to [facility] for a short term rehab.
A referral to [facility] made.
D/C plan: [facility] for a short term rehab based on bed availability ion the day of discharge.
CM will follow with discharge plan updates as hospitalization progresses
[2024-05-10] MEDS: ROCEPHIN 1000 MG IV (15:46)
[2024-05-10] MEDS: STERILE WATER FOR INJECTION 20 ML IV (15:46)
[2024-05-10] MEDS: KLONOPIN 0.5 MG PO (16:09)
[2024-05-10] MEDS: NOVOLOG FLEXPEN 4 UNITS SC (16:53)
[2024-05-10 17:03] LABS: Glucose - Point of Care 131 mg/dl (70-99)
--- NOTE | 2024-05-10 17:46 | PTCARENOTE ---
No noted assessment changes. Patient remains interactive and cooperative thru shift. Some confusion that has been easily redirected. Assist with dinner. Maximum assist for movement protocols, in and out of bed full assist. Assessment trends and
vital signs ongoing. Hourly rounds, spd protocols, and frequent patient safety checks ongoing.
[2024-05-10] MEDS: SEROQUEL 25 MG PO (21:45)
[2024-05-10] MEDS: PROTONIX 20 MG PO (21:45)
[2024-05-10] MEDS: LIPITOR 40 MG PO (21:46)
[2024-05-10] MEDS: LANTUS 0.2 UNITS SC (23:39)
[2024-05-10 23:43] LABS: Glucose - Point of Care 134 mg/dl (70-99)
[2024-05-11] VITALS (10 sets, daily range): BP systolic 97–166; BP diastolic 45–81; PULSE 94; O2SAT 98
--- NOTE | 2024-05-11 03:41 | PTCARENOTE ---
Pt drowsy, easily arousable, alert to self, sometimes to place but otherwise confused. Afebrile, NSR/SB 40-70's on monitor. Restraints in place per order. Q2 hour turns with pillows. Davis with idris urine.
--- NOTE | 2024-05-11 05:21 | PTCARENOTE ---
Received patient from ICU, patient drowsy. Oriented to self. Patient placed on heart monitor, NSR. Patient with B/L soft wrist restraints intact. [address], idris urine noted in drainage bag. Patient denies any pain or discomfort. Care
ongoing.
[2024-05-11 06:22] LABS: Hematocrit 32.4 % (37.0-47.0); Hemoglobin 10.9 g/dL (12.0-16.0); Mean Corp Hgb Conc. 33.6 g/dL (33.0-37.0); Mean Corpuscular Hgb 31.6 pg (27.0-31.0); Mean Corpuscular Volume 93.9 fL (81.0-99.0); Mean Platelet Volume 9.8 fL (7.4-10.4); Platelet Count 150 10^3/uL (130-400); Red Blood Cell Count 3.45 10^6/uL (4.20-5.40); Red Cell Dist. Width 15.9 % (11.5-14.5); White Blood Cell Count 4.6 10^3/uL (4.8-10.8)
[2024-05-11 06:40] LABS: ALT (SGPT) 16 U/L (0-35); AST (SGOT) 25 U/L (14-36); Albumin 2.7 g/dl (3.5-5.0); Alkaline Phosphatase 138 U/L (38-126); Blood Urea Nitrogen 22 mg/dl (7-17); Calcium 9.5 mg/dl (8.4-10.2); Carbon Dioxide 28 mmol/L (22-30); Chloride 111 mmol/L (98-107); Estimated Creatinine Clearance 53 ml/min; Glucose 118 mg/dl (70-99); Potassium 3.6 mmol/L (3.5-5.1); Sodium 147 mmol/L (135-145); Total Protein 5.2 g/dl (6.3-8.2); eGFR > 60.00
[2024-05-11 08:06] LABS: Glucose - Point of Care 109 mg/dl (70-99)
[2024-05-11] MEDS: NOVOLOG FLEXPEN-MODERATE RESISTANCE SC ×2 (08:47→17:22)
[2024-05-11] MEDS: ZESTRIL 5 MG PO (08:48)
[2024-05-11] MEDS: SEROQUEL 12.5 MG PO (08:48)
[2024-05-11] MEDS: NOVOLOG FLEXPEN 4 UNITS SC ×3 (08:53→17:22)
--- NOTE | 2024-05-11 10:31 | CM ---
Referral in care for [facility].
Contacted Molly at [facility] . Bed is being held by son .
Pt accepted back to [facility] at [place].
Jesus
nickort [phone]
fax [phone]
PLAN To [facility] when medically ready for [place].
[2024-05-11] MEDS: LR 1000 IV (11:06)
--- NOTE | 2024-05-11 12:29 | W.PN.CARDCBS ---
Addendum entered and electronically signed by Román Silverman MD 05/11/24 14:34:
I saw and examined the patient.
The Entry Level Electrician's note was reviewed and I agree with the note.
Comment: Briefly, 79-year-old woman past medical history of paroxysmal atrial fibrillation and dementia who presented with acute blood loss anemia due to vaginal bleeding
Cardiology has been consulted for evaluation of bradycardia
Patient tells me she is asymptomatic without lightheadedness or dizziness
We have decreased her atenolol dose to 12.5 mg daily, would discharged on this dose
Telemetry reviewed overnight, largely sinus rhythm in the 60s and 70s
Would resume oral anticoagulation when safe from urology standpoint
We will sign off, please recall as needed
Original Note:
Today's Communication / Plan
-
resume Atenolol at lower dose of 12.5 mg daily
Impression / Plan
-
PCP: Jean Pierre Carroll
Does not have financial planner
Impression:
Bradycardia
pafib
Type 2 DM
hyperlipidemia
sepsis due to emphysematous cystitis
acute blood loss due to vaginal bleeding
dementia
falls
Cardiovascular Diagnostic studies:
telemetry personally reviewed: SB/NSR. HR in mid 40s overnight, 70-90s during day
Echo: 05/10/24: EF 65-70%, mild cLVH, mild .29, no AI
Plan:
-review of telemetry shows continued sinus rhythm, no episodes of afib. Remains off Atenolol. HRs higher 90s at times, dips into high 40s at night. Would resume Atenolol at lower dose of 12.5 mg daily given her h/o pafib and stable/borderline
elevated BPs.
-Hgb stable 10.9, 05/11/24
-resume Eliquis when appropriate per primary team
-echo 05/10/[address] fxn, mild
-continue Lipitor
-contine Lisinopril
-ok for discharge from cardiac standpoint.
Progress Note - Manager Diabetes
Subjective
Date of Service: May 11, 2024
out of ICU
denies palpitations, lightheadedness, chest pain, SOB
remains off Eliquis
telemetry shows NSR/SB
Objective
Labs:
05/11/24 05:11
05/11/24 05:11
Labs
Hgb 10.9 g/dL (12.0-16.0) L 05/11/24 05:11
Hct 32.4 % (37.0-47.0) L 05/11/24 05:11
Plt Count 150 10^3/uL (130-400) 05/11/24 05:11
PT 17.3 Sec (11.4-14.6) H 05/07/24 18:53
INR 1.43 05/07/24 18:53
APTT 32.7 Sec (23.4-35.0) 05/07/24 18:53
Sodium 147 mmol/L (135-145) H 05/11/24 05:11
Potassium 3.6 mmol/L (3.5-5.1) 05/11/24 05:11
BUN 22 mg/dl (7-17) H 05/11/24 05:11
Creatinine 0.8 mg/dL (0.6-1.0) 05/11/24 05:11
Glucose 118 mg/dl (70-99) H 05/11/24 05:11
Vital Signs and I&O:
Vital Signs
Temp Pulse Resp BP Pulse Ox
98.2 F 95 17 135/71 98
05/11/24 11:43 05/11/24 11:43 05/11/24 11:43 05/11/24 11:43 05/11/24 11:43
Vital Signs
Temp Pulse Resp BP Pulse Ox
98.2 F 95 17 135/71 98
05/11/24 11:43 05/11/24 11:43 05/11/24 11:43 05/11/24 11:43 05/11/24 11:43
Intake & Output
05/09/24 05/10/24 05/11/24 05/12/24
06:59 06:59 06:59 06:59
Intake Total 2645.0 / 2745.0 1270 / 1270 1010 / 1010
Output Total 1445 / 1445 750 / 750 1250 / 1250
Balance 1200.0 / 1300.0 520 / 520 -240 / -240
Physical Exam
Physical Exam
GEN: No distress, awake, Ox3
HEENT: supple, anicteric, mmm
LUNGS: CTA, no wheezes/rales
CV: Reg, S1/S2,I/ systolic murmur LUSB
ABD: soft, BS+, NT/ND
EXT: No edema
NEURO: Gross non-focal
SKIN: No rash
[2024-05-11 12:43] LABS: Glucose - Point of Care 163 mg/dl (70-99)
[2024-05-11] MEDS: NOVOLOG FLEXPEN-MODERATE RESISTANCE 1 UNITS SC (12:46)
--- NOTE | 2024-05-11 12:54 | W.PN.ID1 ---
Addendum entered and electronically signed by Amy Moser MD 05/11/24 14:02:
I saw and evaluated the patient. I reviewed the resident�s note and agree with findings and plan as documented in the resident�s note.
# Complicated UTI in setting of gross hematuria/clot retention
# Klebsiella pneumoniae bacteremia, urine source
# JONELLE improved
# Septic shock, present on admission, now resolved
# hx afib on Eliquis
- Repeat blood cx neg to date
- Continue ceftriaxone 1g IV q24 (d4 abx)
- At time of discharge, transition to cefuroxime 500mg po bid through 05/21/24.
Original Note:
Date of Service
Date of Service: May 11, 2024
Today's Communication
* Continue ceftriaxone.
Assessment / Plan
Hemorrhagic emphysematous cystitis
Klebsiella pneumoniae bacteremia
Septic shock secondary to above, resolved
Acute urinary retention, presence of Davis since 05-07-24
- Likely began in the setting of bleeding while on apixaban.
- Fevers and leukocytosis now resolved.
- Davis draining urine without blood.
- Hemoglobin now stable and JONELLE resolved.
- Continue ceftriaxone (day 5 of antibiotics).
- At the time of discharge, can switch to cefuroxime to complete 14 days of treatment.
- Follow CBC and temperature curve.
Acute blood loss anemia, status-post transfusion and stable
Acute kidney injury on chronic kidney disease, stage IIIa, resolved
Hypokalemia
Hypomagnesemia
Cystic pancreatic lesion
Conditions known prior to admission:
Paroxysmal atrial fibrillation on apixaban
Dementia with behavioral disturbances
Hypertension
Hyperlipidemia
Type II diabetes mellitus
Anxiety
Insomnia
Gastroesophageal reflux disease
Chief Complaint
-: Other (bleeding)
Subjective / Review of Systems
Review of Systems: No Fever, No Chills, No Headache, No Cough, No Chest Pain, No Abdominal Pain, No Nausea, No Diarrhea, No Dysuria and Other (visual and auditory hallucinations)
Vital Signs / Physical Exam
Vital Signs
Vital Signs
Temp Pulse Resp BP Pulse Ox
98.2 F 95 17 135/71 98
05/11/24 11:43 05/11/24 11:43 05/11/24 11:43 05/11/24 11:43 05/11/24 11:43
Physical Exam
Constitutional: No Acute Distress and Comfortable
Head: Normocephalic
Eyes: Pupils Equal and Sclera Anicteric
Oropharyngeal: Benign
Cardiovascular: Regular Rate and S1/S2
Pulmonary: Clear and Non Labored
Gastrointestinal: Soft, Non Tender and Non Distended
Genito-Urinary: Davis
Extremities: Negative Edema, Clubbing or Cyanosis
Neurological: Awake; Negative Alert or Oriented
Psychological: Confused and Other (visual and auditory hallucinations)
Objective Data
Lab Data
Lab Results
05/11/24 05:11
05/11/24 05:11
PT 17.3 Sec (11.4-14.6) H 05/07/24 18:53
INR 1.43 05/07/24 18:53
APTT 32.7 Sec (23.4-35.0) 05/07/24 18:53
Estimated Creat Clear 53 ml/min 05/11/24 05:11
Total Bilirubin 1.0 mg/dl (0.2-1.3) 05/11/24 05:11
AST 25 U/L (14-36) 05/11/24 05:11
ALT 16 U/L (0-35) 05/11/24 05:11
Alkaline Phosphatase 138 U/L (38-126) H 05/11/24 05:11
Most recent labs reviewed.
Micro Results:
05/08/24 19:21 Blood Culture - Preliminary
Blood/Venous No Growth in 48 hours- Final report to follow
05/09/24 14:51 Blood Culture - Preliminary
Blood/Venous No Growth in 24 hours- Final report to follow
05/07/24 22:56 Urine Culture - Final
Urine Klebsiella pneumoniae
Rubi albicans
05/07/24 21:42 Blood Culture - Final
Blood/Venous Klebsiella pneumoniae
Gram Stain - Final
05/07/24 21:42 Blood Culture - Final
Blood/Venous Klebsiella pneumoniae
Gram Stain - Final
05/08/24 02:41 MRSA Screen - Final
Nose No Methicillin Resistant Staphylococcus aureus isolated.
05-07-24: CT AP: 1. No abdominal aortic aneurysm or dissection. No overt CTA evidence for active GI bleed or fistula. 2. Findings suggesting emphysematous cystitis in the proper clinical context. 3. Borderline hepatomegaly. 4. Cystic pancreatic
lesion measuring up to 2.0 cm, possibly a pseudocyst or side branch intraductal papillary mucinous neoplasm.
05-08-24: CXR: Small focus of patchy parenchymal opacity within the medial left lower lung, most likely atelectasis, new from CT examination of May 07, 2024. A small focus of pneumonia is possible but felt to be less likely.
05-10-24: CXR: Suspected small left basilar opacity without significant change. Recommend PA and lateral views when able to be obtained.
--- NOTE | 2024-05-11 13:30 | W.PN.HOSP.TC ---
Today's Communication/Plan
-
abx
f/u urology recs for re-initiation of eliquis
LR bolus, monitor Na
Assessment / Plan
Assessment / Plan
Physical Exam
General: Well Developed, Well Nourished and No Apparent Distress
HEENT: NormoCephalic, Moist mucous membranes and Atraumatic
Respiratory: Clear
Cardiac: S1/S2 and Regular Rhythm; No Murmur or Rub
GI: Soft, Non Distended, Normal Bowel Sounds and Tender (suprapubic ); No Organomegaly
Rectal: Deferred by Provider
Musculoskeletal: No Clubbing, No Cyanosis and No Edema
Skin: No Rash
Neuro: Nonfocal/grossly intact; lethargic
# Septic Shock secondary to #emphysematous cystitis and #bacteremia
-Shock resolved
-Klebsiella pneumoniae
-f/u repeat blood cultures
-Zosyn - switch to ceftriaxone - candc on cefuroxime upon dc for 14 day abx course
-Urology consulted; s/p CBI
-Maintain MAP >65, wean norepinephrine as tolerated
-ID consulted
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
-Hemoglobin dropped from 9.3 to 6.2 within 3 hours
-Kcentra given
-s/p 2 units of blood
� Hold Eliquis - awaiting clearance from urology
� CBI stopped 05/10, pope in place - monitor urine
� Urology consulted
� Trend CBC, ensure hemoglobin remains greater than 7
#JONELLE on CKD
� Most likely prerenal secondary to hypotension versus septic ATN
� Continue resuscitation and monitor
-improving
#Hypernatremia
� possibly 2/2 to minimal po intake with sepsis
-LR bolus today and monitor
-trend
#Hypokalemia
#Hypomagnesemia
-monitor and replete
Dementia with behavioral disturbances
-Seroquel
-Patient spouse states that patient is close to normal mental status currently
Paroxysmal atrial fibrillation
Bradycardia - most likely 2/2 to sepsis
-Hold Eliquis due to acute bleeding, await clearance from urology
-hold atenolol
-cardiology consulted
-tele
-echo - no acute findings, mild lvh
Essential hypertension
-lisinopril
-Hold atenolol
Hyperlipidemia
Type 2 diabetes
-Increase lantus, aspart
-Insulin sliding scale
-Hold metformin
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
-Recommend outpatient workup with dedicated MRI/MRCP abdomen without and with gadolinium contrast.
Chronic kidney disease
-Renal function baseline
Anxiety/depression
-Continue as needed clonazepam
DNR/DNI
DVT prophylaxis�SCDs
Regular diet
Total time spent on today's encounter was 51 minutes which included time spent in counseling the patient/family regarding diagnosis and treatment plan as listed above, goals of care, and symptom management. Case was discussed with nursing staff,
specialists, and care coordinators/case management. All labs and imaging personally reviewed by me. Remainder the time spent in detailed review of previous records, lab data, imaging, and other medical provider documentation.
Anticipated Discharge: Within 24 hours
Subjective/Interval History
-
Date of Service: May 11, 2024
No acute events overnight
Objective Data
-
Labs:
Laboratory Results
05/11/24
05:11
WBC 4.6 L
Hgb 10.9 L
Hct 32.4 L
Plt Count 150
Sodium 147 H
Potassium 3.6
Chloride 111 H
Carbon Dioxide 28
BUN 22 H
Creatinine 0.8
Glucose 118 H
Calcium 9.5
Total Bilirubin 1.0
AST 25
ALT 16
Alkaline Phosphatase 138 H
Vital Signs:
Vital Signs
Temp Pulse Resp BP Pulse Ox
98.2 F 95 17 135/71 98
05/11/24 11:43 05/11/24 11:43 05/11/24 11:43 05/11/24 11:43 05/11/24 11:43
I&O
05/10/24 05/11/24 05/12/24
06:59 06:59 06:59
Intake Total 1270 / 1270 1010 / 1010
Output Total 750 / 750 1250 / 1250
Balance 520 / 520 -240 / -240
Review of Systems
-
History Source: Patient
All other systems: Not reviewed unless documented
Data Reviewed
-
Diagnostic Radiology: Image personally visualized and interpreted and Report Reviewed by me
CT Scan: Image personally visualized and interpreted and Report Reviewed by me
Labs: Labs Reviewed by me
--- NOTE | 2024-05-11 15:20 | PTCARENOTE ---
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 abd soft NT last bm yesterday. cont b&b. skin CDI. +PP B/L. Pt reports he is currently in the process of moving to [facility] with his .
[2024-05-11] MEDS: ROCEPHIN 1000 MG IV (16:02)
[2024-05-11] MEDS: STERILE WATER FOR INJECTION 20 ML IV (16:03)
[2024-05-11] MEDS: TENORMIN 12.5 MG PO (16:07)
[2024-05-11 16:35] LABS: Glucose - Point of Care 122 mg/dl (70-99)
[2024-05-11 21:20] LABS: Glucose - Point of Care 130 mg/dl (70-99)
[2024-05-11] MEDS: SEROQUEL 25 MG PO (21:24)
[2024-05-11] MEDS: PROTONIX 20 MG PO (21:24)
[2024-05-11] MEDS: LANTUS SC (21:24)
[2024-05-11] MEDS: LIPITOR 40 MG PO (21:24)
[2024-05-11] MEDS: LANTUS 0.2 UNITS SC (21:53)
[2024-05-12 03:00] VITALS: BP 131/54
[2024-05-12 06:19] LABS: Hematocrit 30.6 % (37.0-47.0); Hemoglobin 10.5 g/dL (12.0-16.0); Mean Corp Hgb Conc. 34.3 g/dL (33.0-37.0); Mean Corpuscular Hgb 32.3 pg (27.0-31.0); Mean Corpuscular Volume 94.2 fL (81.0-99.0); Mean Platelet Volume 9.9 fL (7.4-10.4); Platelet Count 133 10^3/uL (130-400); Red Blood Cell Count 3.25 10^6/uL (4.20-5.40); Red Cell Dist. Width 15.5 % (11.5-14.5); White Blood Cell Count 4.9 10^3/uL (4.8-10.8)
[2024-05-12 06:38] LABS: ALT (SGPT) 16 U/L (0-35); AST (SGOT) 26 U/L (14-36); Albumin 2.6 g/dl (3.5-5.0); Alkaline Phosphatase 130 U/L (38-126); Blood Urea Nitrogen 18 mg/dl (7-17); Calcium 9.3 mg/dl (8.4-10.2); Carbon Dioxide 28 mmol/L (22-30); Chloride 109 mmol/L (98-107); Estimated Creatinine Clearance 61 ml/min; Glucose 91 mg/dl (70-99); Potassium 3.4 mmol/L (3.5-5.1); Sodium 145 mmol/L (135-145); eGFR > 60.00
[2024-05-12 07:07] VITALS: BP 160/71
[2024-05-12 07:46] LABS: Glucose - Point of Care 103 mg/dl (70-99)
[2024-05-12] MEDS: NOVOLOG FLEXPEN-MODERATE RESISTANCE SC ×2 (07:48→17:15)
[2024-05-12] MEDS: SEROQUEL 12.5 MG PO (10:01)
[2024-05-12] MEDS: TENORMIN 12.5 MG PO (10:01)
[2024-05-12] MEDS: NOVOLOG FLEXPEN 4 UNITS SC ×3 (10:01→17:36)
[2024-05-12] MEDS: ZESTRIL 5 MG PO (10:06)
[2024-05-12] MEDS: KCL ELIXIR 40 MEQ PO (10:07)
[2024-05-12 11:22] VITALS: BP 136/64
--- NOTE | 2024-05-12 11:40 | W.PN.URO.CBU ---
Today's Communication / Plan
-
ok to rmove pope
Assessment / Plan
-
urine clear will remove pope
Diagnosis
-
Date of Service: May 12, 2024
-
Patient Diagnosis:
Post Op Day:
Patient Diagnosis:
Post Op Day:
Patient Diagnosis:
Post Op Day:
Patient Diagnosis:hemorrhagi c emphysematous cytitis
Post Op Day:
Subjective
-
demented
Objective
-
Vital Signs
Temp Pulse Resp BP Pulse Ox
97.4 F 71 16 136/64 98
05/12/24 11:22 05/12/24 11:22 05/12/24 11:22 05/12/24 11:22 05/12/24 11:22
Intake and Output
05/11/24 05/12/24 05/13/24
06:59 06:59 06:59
Intake Total 1010 / 1010 630 / 630
Output Total 1250 / 1250 1100 / 1100
Balance -240 / -240 -470 / -470
Intake:
Oral fluids 960 / 960 630 / 630
IV piggybacks 50 / 50
Output:
Urine, Pope 800 / 800 1100 / 1100
Urine, Voided 450 / 450
Laboratory Results
05/12/24 06:00
05/12/24 06:00
Review of Systems
-
Unable to obtain full review of systems at this time due to: Dementia
Physical Exam
-
General - well developed, well nourished, no acute distress
Chest - clear bilaterally
Abdomen - soft, non-tender, positive bowel sounds, no CVAT, no incisional pain or distention
Genitalia - normal
Rectal - normal
Skin - warm & dry with no rash
Neuro - AOx3, no motor deficits
Extremities - no clubbing, no cyanosis, no edema
Incision - clean, dry
Dressing - clean, dry, intact
Care Review
Data Reviewed
Discussed with: Nursing
[2024-05-12 12:00] LABS: Glucose - Point of Care 209 mg/dl (70-99)
--- NOTE | 2024-05-12 12:23 | W.PN.HOSP.TC ---
Today's Communication/Plan
-
pope removed by Urology
Restart Eliquis - may have hematuria - monitor HgB
Cont abx
monitor Na, K
Assessment / Plan
Assessment / Plan
Physical Exam
General: Well Developed, Well Nourished and No Apparent Distress
HEENT: NormoCephalic, Moist mucous membranes and Atraumatic
Respiratory: Clear
Cardiac: S1/S2 and Regular Rhythm; No Murmur or Rub
GI: Soft, Non Distended, Normal Bowel Sounds and Tender (suprapubic ); No Organomegaly
Rectal: Deferred by Provider
Musculoskeletal: No Clubbing, No Cyanosis and No Edema
Skin: No Rash
Neuro: Nonfocal/grossly intact; lethargic
# Septic Shock secondary to #emphysematous cystitis and #bacteremia
-Shock resolved
-Klebsiella pneumoniae
-f/u repeat blood cultures
-Zosyn - switch to ceftriaxone - can dc on cefuroxime upon dc for 14 day abx course - 05/21/24.
-Urology consulted; s/p CBI
-Maintain MAP >65, wean norepinephrine as tolerated
-ID consulted
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
-Hemoglobin dropped from 9.3 to 6.2 within 3 hours
-Kcentra given
-s/p 2 units of blood
� OK to restart Eliquis as per urology, probably will have hematuria - monitor CBC.
� CBI stopped 05/10, pope removal today 05/12
� Urology consulted
� Trend CBC, ensure hemoglobin remains greater than 7
#JONELLE on CKD
� Most likely prerenal secondary to hypotension versus septic ATN
� Continue resuscitation and monitor
-improving
#Hypernatremia
� possibly 2/2 to minimal po intake with sepsis
-LR bolus today and monitor
-trend
-improved
#Hypokalemia
#Hypomagnesemia
-monitor and replete
Dementia with behavioral disturbances
-Seroquel
-Patient spouse states that patient is close to normal mental status currently
Paroxysmal atrial fibrillation
Bradycardia - most likely 2/2 to sepsis
-Hold Eliquis due to acute bleeding, await clearance from urology
-decrease atenolol to 12.5 mg daily - dc on this dose
-cardiology consulted
-tele
-echo - no acute findings, mild lvh
Essential hypertension
-lisinopril
-atenolol
Hyperlipidemia
Type 2 diabetes
-Increase lantus, aspart
-Insulin sliding scale
-Hold metformin
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
-Recommend outpatient workup with dedicated MRI/MRCP abdomen without and with gadolinium contrast.
Chronic kidney disease
-Renal function baseline
Anxiety/depression
-Continue as needed clonazepam
DNR/DNI
DVT prophylaxis�SCDs
Regular diet
Anticipated Discharge: 24 - 48 hours
Subjective/Interval History
-
Date of Service: May 12, 2024
no acute events
Objective Data
-
Labs:
Laboratory Results
05/12/24
06:00
WBC 4.9
Hgb 10.5 L
Hct 30.6 L
Plt Count 133
Sodium 145
Potassium 3.4 L
Chloride 109 H
Carbon Dioxide 28
BUN 18 H
Creatinine 0.7
Glucose 91
Calcium 9.3
Total Bilirubin 1.0
AST 26
ALT 16
Alkaline Phosphatase 130 H
Vital Signs:
Vital Signs
Temp Pulse Resp BP Pulse Ox
97.4 F 71 16 136/64 98
05/12/24 11:22 05/12/24 11:22 05/12/24 11:22 05/12/24 11:22 05/12/24 11:22
I&O
05/11/24 05/12/24 05/13/24
06:59 06:59 06:59
Intake Total 1010 / 1010 630 / 630
Output Total 1250 / 1250 1100 / 1100
Balance -240 / -240 -470 / -470
Review of Systems
-
History Source: Patient
All other systems: Not reviewed unless documented
Data Reviewed
-
Diagnostic Radiology: Image personally visualized and interpreted and Report Reviewed by me
CT Scan: Image personally visualized and interpreted and Report Reviewed by me
Labs: Labs Reviewed by me
[2024-05-12] MEDS: ELIQUIS 5 MG PO ×2 (13:23→21:07)
[2024-05-12] MEDS: NOVOLOG FLEXPEN-MODERATE RESISTANCE 3 UNITS SC (13:23)
[2024-05-12 14:54] VITALS: BP 165/70
[2024-05-12] MEDS: ROCEPHIN 1000 MG IV (16:33)
[2024-05-12] MEDS: STERILE WATER FOR INJECTION 20 ML IV (16:33)
[2024-05-12 17:15] LABS: Glucose - Point of Care 112 mg/dl (70-99)
[2024-05-12 19:00] VITALS: BP 149/69
[2024-05-12] MEDS: LIPITOR 40 MG PO (21:07)
[2024-05-12] MEDS: PROTONIX 20 MG PO (21:07)
[2024-05-12] MEDS: SEROQUEL 25 MG PO (21:07)
[2024-05-12 21:30] LABS: Glucose - Point of Care 168 mg/dl (70-99)
[2024-05-12] MEDS: LANTUS 0.2 UNITS SC (21:42)
[2024-05-12 23:00] VITALS: BP 135/59
[2024-05-13 03:00] VITALS: BP 157/76
[2024-05-13 07:29] LABS: Hematocrit 30.7 % (37.0-47.0); Hemoglobin 10.5 g/dL (12.0-16.0); Mean Corp Hgb Conc. 34.2 g/dL (33.0-37.0); Mean Corpuscular Volume 90.6 fL (81.0-99.0); Mean Platelet Volume 10.1 fL (7.4-10.4); Platelet Count 138 10^3/uL (130-400); Red Blood Cell Count 3.39 10^6/uL (4.20-5.40); Red Cell Dist. Width 15.5 % (11.5-14.5); White Blood Cell Count 5.3 10^3/uL (4.8-10.8)
[2024-05-13 07:49] LABS: ALT (SGPT) 18 U/L (0-35); AST (SGOT) 27 U/L (14-36); Albumin 2.6 g/dl (3.5-5.0); Alkaline Phosphatase 127 U/L (38-126); Blood Urea Nitrogen 16 mg/dl (7-17); Calcium 9.4 mg/dl (8.4-10.2); Carbon Dioxide 30 mmol/L (22-30); Chloride 106 mmol/L (98-107); Estimated Creatinine Clearance 53 ml/min; Glucose 130 mg/dl (70-99); Magnesium 1.5 mg/dl (1.6-2.3); Potassium 3.8 mmol/L (3.5-5.1); Sodium 143 mmol/L (135-145); Total Bilirubin 0.9 mg/dl (0.2-1.3); eGFR > 60.00
[2024-05-13 07:50] VITALS: BP 162/79
[2024-05-13 07:52] LABS: Glucose - Point of Care 144 mg/dl (70-99)
[2024-05-13] MEDS: NOVOLOG FLEXPEN-MODERATE RESISTANCE SC ×3 (07:52→17:00)
[2024-05-13] MEDS: TENORMIN 12.5 MG PO (07:52)
[2024-05-13] MEDS: ZESTRIL 5 MG PO (07:53)
[2024-05-13] MEDS: SEROQUEL 12.5 MG PO (07:53)
[2024-05-13] MEDS: NOVOLOG FLEXPEN 4 UNITS SC ×3 (07:53→17:18)
[2024-05-13] MEDS: ELIQUIS 5 MG PO ×2 (07:53→21:48)
[2024-05-13 11:04] VITALS: BP 123/51
--- NOTE | 2024-05-13 11:39 | W.PN.HOSP.TC ---
Addendum entered and electronically signed by Casey Martinez MD 05/13/24 13:20:
JONELLE only, resolved
Original Note:
Today's Communication/Plan
-
Monitor Urine while performing TOV, assessing adequacy of voiding and if hematuria develops
monitor hgb now that on Eliquis
cont abx
Assessment / Plan
Assessment / Plan
Physical Exam
General: Well Developed, Well Nourished and No Apparent Distress
HEENT: NormoCephalic, Moist mucous membranes and Atraumatic
Respiratory: Clear
Cardiac: S1/S2 and Regular Rhythm; No Murmur or Rub
GI: Soft, Non Distended, Normal Bowel Sounds and Tender (suprapubic ); No Organomegaly
Rectal: Deferred by Provider
Musculoskeletal: No Clubbing, No Cyanosis and No Edema
Skin: No Rash
Neuro: Nonfocal/grossly intact; lethargic
# Septic Shock secondary to #emphysematous cystitis and #bacteremia
-Shock resolved
-Klebsiella pneumoniae
-f/u repeat blood cultures
-Zosyn - switch to ceftriaxone - can dc on cefuroxime upon dc for 14 day abx course - 05/21/24.
-Urology consulted; s/p CBI
-Maintain MAP >65, wean norepinephrine as tolerated
-ID consulted
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
-Hemoglobin dropped from 9.3 to 6.2 within 3 hours
-Kcentra given
-s/p 2 units of blood
� OK to restart Eliquis as per urology 05/12, probably will have hematuria - monitor CBC.
� CBI stopped 05/10, pope removal 05/12 - retaining urine today - straight cath with clear yellow urine, f/u urology recs with TOV trial
� Urology on board
� Trend CBC, ensure hemoglobin remains greater than 7
#JONELLE on CKD
� Most likely prerenal secondary to hypotension versus septic ATN
� Continue resuscitation and monitor
-resolved
#Hypernatremia
� possibly 2/2 to minimal po intake with sepsis
-LR bolus today and monitor
-trend
-improved
#Hypokalemia
#Hypomagnesemia
-monitor and replete
Dementia with behavioral disturbances
-Seroquel
-Patient spouse states that patient is close to normal mental status currently
Paroxysmal atrial fibrillation
Bradycardia - most likely 2/2 to sepsis
-Resume Eliquis and monitor for bleeding 05/12
-decrease atenolol to 12.5 mg daily - dc on this dose
-cardiology consulted
-tele
-echo - no acute findings, mild lvh
Essential hypertension
-lisinopril
-atenolol
Hyperlipidemia
Type 2 diabetes
-Increase lantus, aspart
-Insulin sliding scale
-Hold metformin
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
-Recommend outpatient workup with dedicated MRI/MRCP abdomen without and with gadolinium contrast.
Chronic kidney disease
-Renal function baseline
Anxiety/depression
-Continue as needed clonazepam
DNR/DNI
DVT prophylaxis�Eliquis
Regular diet
Anticipated Discharge: 24 - 48 hours
Subjective/Interval History
-
Date of Service: May 13, 2024
No acute events overnight, retaining urine at this time, straight cath with over 500 cc clear yellow urine
Objective Data
-
Labs:
Laboratory Results
05/13/24
06:57
WBC 5.3
Hgb 10.5 L
Hct 30.7 L
Plt Count 138
Sodium 143
Potassium 3.8
Chloride 106
Carbon Dioxide 30
BUN 16
Creatinine 0.8
Glucose 130 H
Calcium 9.4
Total Bilirubin 0.9
AST 27
ALT 18
Alkaline Phosphatase 127 H
Vital Signs:
Vital Signs
Temp Pulse Resp BP Pulse Ox
97.9 F 51 16 123/51 98
05/13/24 11:04 05/13/24 11:04 05/13/24 11:04 05/13/24 11:04 05/13/24 11:04
I&O
05/12/24 05/13/24 05/14/24
06:59 06:59 06:59
Intake Total 630 / 630 210 / 210
Output Total 1100 / 1100 1000 / 1000 600 / 600
Balance -470 / -470 -790 / -790 -600 / -600
Review of Systems
-
History Source: Patient
All other systems: Not reviewed unless documented
Data Reviewed
-
Diagnostic Radiology: Image personally visualized and interpreted and Report Reviewed by me
CT Scan: Image personally visualized and interpreted and Report Reviewed by me
Labs: Labs Reviewed by me
[2024-05-13 11:45] LABS: Glucose - Point of Care 132 mg/dl (70-99)
--- NOTE | 2024-05-13 11:57 | W.PN.URO.CBU ---
Today's Communication / Plan
-
IF NO VOID OR PVR OVER [address]
Assessment / Plan
-
urine clear BUT PROFESSIONAL MODEL VOID RECHECK IRINE 8PM IF NO VOID OR PVR OVER [address] THEN PLACE PERMANNT SANCHEZ IE NO STRIAGT CATH
Diagnosis
-
Date of Service: May 13, 2024
-
Patient Diagnosis:
Post Op Day:
Patient Diagnosis:
Post Op Day:
Patient Diagnosis:
Post Op Day:
Patient Diagnosis:
Post Op Day:
Patient Diagnosis:hemorrhagi c emphysematous cytitis
Post Op Day:
Subjective
-
PT NOT NOTED TO VOID 600CC CLEAR URIN DRAIED NO BLOOD
Objective
-
Vital Signs
Temp Pulse Resp BP Pulse Ox
97.9 F 51 16 123/51 98
05/13/24 11:04 05/13/24 11:04 05/13/24 11:04 05/13/24 11:04 05/13/24 11:04
Intake and Output
05/12/24 05/13/24 05/14/24
06:59 06:59 06:59
Intake Total 630 / 630 210 / 210
Output Total 1100 / 1100 1000 / 1000 600 / 600
Balance -470 / -470 -790 / -790 -600 / -600
Intake:
Oral fluids 630 / 630 210 / 210
Output:
Urine, Sanchez 1100 / 1100 500 / 500
Straight cath output 500 / 500 600 / 600
Laboratory Results
05/13/24 06:57
05/13/24 06:57
Review of Systems
-
Unable to obtain full review of systems at this time due to: Dementia
: Difficulty Voiding
Physical Exam
-
General - well developed, well nourished, no acute distress
Chest - clear bilaterally
Abdomen - soft, non-tender, positive bowel sounds, no CVAT, no incisional pain or distention
Genitalia - normal
Rectal - normal
Skin - warm & dry with no rash
Neuro - AOx3, no motor deficits
Extremities - no clubbing, no cyanosis, no edema
Incision - clean, dry
Dressing - clean, dry, intact
Care Review
Data Reviewed
Discussed with: Nursing
[2024-05-13] MEDS: MAGNESIUM SULFATE 100 IV (12:05)
[2024-05-13 15:25] VITALS: BP 150/67
[2024-05-13] MEDS: STERILE WATER FOR INJECTION 20 ML IV (16:03)
[2024-05-13] MEDS: ROCEPHIN 1000 MG IV (16:03)
[2024-05-13 17:00] LABS: Glucose - Point of Care 128 mg/dl (70-99)
--- NOTE | 2024-05-13 18:31 | PTCARENOTE ---
patient bladder scan this AM and was straight cath with 600 ml. urology notified and ordered to insert a pope if next bladder scan is greater then 500 ml. pope reinserted and immediate output was 600 ml. patient tolerated well. cont with pope care
[2024-05-13 19:00] VITALS: BP 147/70
[2024-05-13 21:19] LABS: Glucose - Point of Care 151 mg/dl (70-99)
[2024-05-13] MEDS: SEROQUEL 25 MG PO (21:47)
[2024-05-13] MEDS: PROTONIX 20 MG PO (21:47)
[2024-05-13] MEDS: LIPITOR 40 MG PO (21:47)
[2024-05-13] MEDS: LANTUS 0.2 UNITS SC (21:49)
[2024-05-13 23:00] VITALS: BP 123/51
[2024-05-14] VITALS (8 sets, daily range): BP systolic 133–165; BP diastolic 67–89; PULSE 94; O2SAT 97
[2024-05-14 05:42] LABS: Hemoglobin 11.4 g/dL (12.0-16.0); Mean Corp Hgb Conc. 34.5 g/dL (33.0-37.0); Mean Corpuscular Hgb 30.6 pg (27.0-31.0); Mean Corpuscular Volume 88.7 fL (81.0-99.0); Mean Platelet Volume 9.9 fL (7.4-10.4); Platelet Count 144 10^3/uL (130-400); Red Blood Cell Count 3.72 10^6/uL (4.20-5.40); Red Cell Dist. Width 15.6 % (11.5-14.5); White Blood Cell Count 6.1 10^3/uL (4.8-10.8)
--- NOTE | 2024-05-14 05:51 | PTCARENOTE ---
Addendum entered by Leann Melvin RN 05/14/24 06:03:
ROSA Kay
Original Note:
Pt pulled out both IVs and started pulling at pope catheter. Pt had blood all over. IV team was paged for new line and ROSA was made aware. Order for b/l non-violent restraints ordered. Patient educated on restraints, skin is checked q2h.
Continuing to monitor, bed alarm in place.
[2024-05-14 06:18] LABS: ALT (SGPT) 18 U/L (0-35); AST (SGOT) 28 U/L (14-36); Alkaline Phosphatase 138 U/L (38-126); Blood Urea Nitrogen 15 mg/dl (7-17); Calcium 9.6 mg/dl (8.4-10.2); Carbon Dioxide 28 mmol/L (22-30); Chloride 103 mmol/L (98-107); Estimated Creatinine Clearance 61 ml/min; Glucose 142 mg/dl (70-99); Potassium 3.8 mmol/L (3.5-5.1); Sodium 139 mmol/L (135-145); Total Bilirubin 1.3 mg/dl (0.2-1.3); Total Protein 5.5 g/dl (6.3-8.2); eGFR > 60.00
[2024-05-14 07:52] LABS: Glucose - Point of Care 125 mg/dl (70-99)
--- NOTE | 2024-05-14 08:02 | W.PN.HOSP.TC ---
Today's Communication/Plan
-
cont Eliquis
monitor
H&H
bowel regimen
IV abx transitioned to Oral
Assessment / Plan
Assessment / Plan
Physical Exam
General: Well Developed, Well Nourished and No Apparent Distress
HEENT: NormoCephalic, Moist mucous membranes and Atraumatic
Respiratory: Clear
Cardiac: S1/S2 and Regular Rhythm; No Murmur or Rub
GI: Soft, Non Distended, Normal Bowel Sounds nontender; No Organomegaly
Musculoskeletal: No Clubbing, No Cyanosis and No Edema
Skin: No Rash
Neuro: Nonfocal/grossly intact; lethargic
# Septic Shock secondary to #emphysematous cystitis and #bacteremia
-Shock resolved
-Klebsiella pneumoniae
-f/u repeat blood cultures
-Zosyn - switched to ceftriaxone later switched to cefuroxime for total 14 day abx course - 05/21/24.
-Urology consulted; s/p CBI
-Maintain MAP >65, wean norepinephrine as tolerated
-ID consulted
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
-Hemoglobin dropped from 9.3 to 6.2 within 3 hours
-Kcentra given
-s/p 2 units of blood
� OK to restart Eliquis as per urology 05/12, probably will have hematuria - monitor CBC.
� CBI stopped 05/10, pope removal however patient failed trial of void, pope since resarted
� Urology on board
� Trend CBC, ensure hemoglobin remains greater than 7
#JONELLE on CKD
� Most likely prerenal secondary to hypotension versus septic ATN
� Continue resuscitation and monitor
-resolved
#Hypernatremia
� possibly 2/2 to minimal po intake with sepsis
-LR bolus today and monitor
-trend
-improved
#Hypokalemia
#Hypomagnesemia
-monitor and replete
Dementia with behavioral disturbances
-Seroquel
-Patient spouse states that patient is close to normal mental status currently
Paroxysmal atrial fibrillation
Bradycardia - most likely 2/2 to sepsis
-Resume Eliquis and monitor for bleeding 05/12
-decrease atenolol to 12.5 mg daily - dc on this dose
-cardiology consulted
-tele
-echo - no acute findings, mild lvh
Essential hypertension
-lisinopril
-atenolol
Hyperlipidemia
Type 2 diabetes
-Increase lantus, aspart
-Insulin sliding scale
-Hold metformin
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
-Recommend outpatient workup with dedicated MRI/MRCP abdomen without and with gadolinium contrast.
Chronic kidney disease
-Renal function baseline
Anxiety/depression
-Continue as needed clonazepam
Constipation
-scheduled bowel regimen started
DNR/DNI
DVT prophylaxis�Eliquis
Regular diet
discussed with patient's son IVELISSE Perez
I spent a total of 50 minutes with the patient or on the floor. More than 50% of this time involved counseling and coordination of care.
Anticipated Discharge: 24 - 48 hours
Subjective/Interval History
-
Date of Service: May 14, 2024
No acute distress. Mildly confused but cooperative at time of exam. Disoriented to place. Constipation noted but nurse.
Objective Data
-
Labs:
Laboratory Results
05/14/24
05:09
WBC 6.1
Hgb 11.4 L
Hct 33.0 L
Plt Count 144
Sodium 139
Potassium 3.8
Chloride 103
Carbon Dioxide 28
BUN 15
Creatinine 0.7
Glucose 142 H
Calcium 9.6
Total Bilirubin 1.3
AST 28
ALT 18
Alkaline Phosphatase 138 H
Vital Signs:
Vital Signs
Temp Pulse Resp BP Pulse Ox
97.6 F 80 16 153/68 97
05/14/24 07:53 05/14/24 07:53 05/14/24 07:53 05/14/24 07:53 05/14/24 07:53
I&O
05/13/24 05/14/24 05/15/24
06:59 06:59 06:59
Intake Total 210 / 210 420 / 420 0 / 0
Output Total 1000 / 1000 600 / 600 1000 / 1000
Balance -790 / -790 -180 / -180 -1000 / -1000
[2024-05-14] MEDS: SEROQUEL 12.5 MG PO (08:39)
[2024-05-14] MEDS: NOVOLOG FLEXPEN-MODERATE RESISTANCE SC ×3 (08:39→17:12)
[2024-05-14] MEDS: ZESTRIL 5 MG PO (08:39)
[2024-05-14] MEDS: ELIQUIS 5 MG PO ×2 (08:39→20:32)
[2024-05-14] MEDS: NOVOLOG FLEXPEN 4 UNITS SC ×3 (08:39→17:12)
[2024-05-14] MEDS: TENORMIN 12.5 MG PO (08:40)
--- NOTE | 2024-05-14 11:17 | CM ---
Referral in care for [facility].
Contacted Molly at [facility] . Bed is being held by son .
Pt accepted back to [facility] at hi.
Jesus
report [phone]
fax [phone]
PLAN To [facility] when medically ready for [facility].
[2024-05-14] MEDS: MILK OF MAGNESIA 30 ML PO (11:24)
[2024-05-14 12:25] LABS: Glucose - Point of Care 108 mg/dl (70-99)
--- NOTE | 2024-05-14 12:41 | W.PN.ID1 ---
Addendum entered and electronically signed by Amy Moser MD 05/14/24 13:02:
I saw and evaluated the patient. I reviewed the resident�s note and agree with findings and plan as documented in the resident�s note.
# Complicated UTI in setting of gross hematuria/clot retention
# Klebsiella pneumoniae bacteremia, urine source
# Urinary retention - failed voiding trial.
# s/p Septic shock
# hx afib on Eliquis
- Repeat blood cx neg
- Transition ceftriaxone 1g IV q24 (d6 abx) to cefuroxime 500mg po bid through 05/21/24.
ID will sign off.
Original Note:
Date of Service
Date of Service: May 14, 2024
Today's Communication
* Transition to cefuroxime.
Assessment / Plan
Hemorrhagic emphysematous cystitis
Klebsiella pneumoniae bacteremia
Septic shock secondary to above, resolved
Acute urinary retention, presence of Davis since 05-07-24
- Likely began in the setting of bleeding while on apixaban.
- Fevers and leukocytosis now resolved.
- Davis draining urine without blood.
- Hemoglobin now stable and JONELLE resolved.
- Transition ceftriaxone to cefuroxime - to complete 14 days of treatment.
- Follow CBC and temperature curve.
Acute blood loss anemia, status-post transfusion and stable
Acute kidney injury on chronic kidney disease, stage IIIa, resolved
Hypokalemia
Hypomagnesemia
Cystic pancreatic lesion
Conditions known prior to admission:
Paroxysmal atrial fibrillation on apixaban
Dementia with behavioral disturbances
Hypertension
Hyperlipidemia
Type II diabetes mellitus
Anxiety
Insomnia
Gastroesophageal reflux disease
Chief Complaint
-: Other (bleeding)
Subjective / Review of Systems
Review of Systems: No Fever, No Chills, No Headache, No Cough, No Chest Pain, No Abdominal Pain, No Nausea, No Diarrhea and No Dysuria
Vital Signs / Physical Exam
Vital Signs
Vital Signs
Temp Pulse Resp BP Pulse Ox
98.5 F 77 16 156/70 96
05/14/24 11:12 05/14/24 11:12 05/14/24 11:12 05/14/24 11:12 05/14/24 11:12
Physical Exam
Constitutional: No Acute Distress and Comfortable
Head: Normocephalic
Eyes: Pupils Equal and Sclera Anicteric
Oropharyngeal: Benign
Cardiovascular: Regular Rate and S1/S2
Pulmonary: Clear and Non Labored
Gastrointestinal: Soft, Non Tender and Non Distended
Genito-Urinary: Davis
Extremities: Negative Edema, Clubbing or Cyanosis
Neurological: Awake; Negative Alert or Oriented
Psychological: Confused
Objective Data
Lab Data
Lab Results
05/14/24 05:09
05/14/24 05:09
PT 17.3 Sec (11.4-14.6) H 05/07/24 18:53
INR 1.43 05/07/24 18:53
APTT 32.7 Sec (23.4-35.0) 05/07/24 18:53
Estimated Creat Clear 61 ml/min 05/14/24 05:09
Total Bilirubin 1.3 mg/dl (0.2-1.3) 05/14/24 05:09
AST 28 U/L (14-36) 05/14/24 05:09
ALT 18 U/L (0-35) 05/14/24 05:09
Alkaline Phosphatase 138 U/L (38-126) H 05/14/24 05:09
Most recent labs reviewed.
Micro Results:
05/08/24 19:21 Blood Culture - Final
Blood/Venous No Growth - Final Report
05/09/24 14:51 Blood Culture - Preliminary
Blood/Venous No Growth in 4 days- Final report to follow
05/07/24 22:56 Urine Culture - Final
Urine Klebsiella pneumoniae
Rubi albicans
05/07/24 21:42 Blood Culture - Final
Blood/Venous Klebsiella pneumoniae
Gram Stain - Final
05/07/24 21:42 Blood Culture - Final
Blood/Venous Klebsiella pneumoniae
Gram Stain - Final
05/08/24 02:41 MRSA Screen - Final
Nose No Methicillin Resistant Staphylococcus aureus isolated.
05-07-24: CT AP: 1. No abdominal aortic aneurysm or dissection. No overt CTA evidence for active GI bleed or fistula. 2. Findings suggesting emphysematous cystitis in the proper clinical context. 3. Borderline hepatomegaly. 4. Cystic pancreatic
lesion measuring up to 2.0 cm, possibly a pseudocyst or side branch intraductal papillary mucinous neoplasm.
05-08-24: CXR: Small focus of patchy parenchymal opacity within the medial left lower lung, most likely atelectasis, new from CT examination of May 07, 2024. A small focus of pneumonia is possible but felt to be less likely.
05-10-24: CXR: Suspected small left basilar opacity without significant change. Recommend PA and lateral views when able to be obtained.
[2024-05-14] MEDS: CEFTIN 500 MG PO ×2 (14:09→21:42)
--- NOTE | 2024-05-14 15:31 | PTOTSP ---
Dysphagia Therapy
Given fluctuating mentation (in setting of UTI with baseline dementia) in combination with WFL-mild oral stage differences, recommend continuation of dysphagia diet. Will sign off at this time.
Recommend:
1. IDDSI Level 6 Soft/Bite Sized, IDDSI Level 0 Thin Liquids
2. Medications - in puree
3. Strategies: 1:1 supervision/assistance (can trial self-feeding when unrestrained, with supervision), upright to 90 degrees, small single sips/bites, slow rate, alternate sips/bites, check for pocketing, reduce distractions during meals
4. Oral care 3x daily
5. Dysphagia re-evaluation after D/C from acute care after resolution of UTI to determine if appropriate to advance back to regular, thin liquids.
[2024-05-14 16:49] LABS: Glucose - Point of Care 138 mg/dl (70-99)
[2024-05-14] MEDS: SENOKOT-S 1 TABLET PO (20:32)
[2024-05-14 21:35] LABS: Glucose - Point of Care 150 mg/dl (70-99)
[2024-05-14] MEDS: SEROQUEL 25 MG PO (21:41)
[2024-05-14] MEDS: LANTUS 0.2 UNITS SC (21:41)
[2024-05-14] MEDS: LIPITOR 40 MG PO (21:42)
[2024-05-14] MEDS: PROTONIX 20 MG PO (21:43)
[2024-05-15 05:46] LABS: Hematocrit 32.2 % (37.0-47.0); Mean Corp Hgb Conc. 34.2 g/dL (33.0-37.0); Mean Corpuscular Hgb 30.7 pg (27.0-31.0); Mean Corpuscular Volume 89.9 fL (81.0-99.0); Platelet Count 140 10^3/uL (130-400); Red Blood Cell Count 3.58 10^6/uL (4.20-5.40); Red Cell Dist. Width 15.7 % (11.5-14.5); White Blood Cell Count 5.5 10^3/uL (4.8-10.8)
[2024-05-15 06:02] LABS: ALT (SGPT) 19 U/L (0-35); AST (SGOT) 26 U/L (14-36); Albumin 2.9 g/dl (3.5-5.0); Alkaline Phosphatase 130 U/L (38-126); Blood Urea Nitrogen 14 mg/dl (7-17); Calcium 9.8 mg/dl (8.4-10.2); Carbon Dioxide 31 mmol/L (22-30); Chloride 104 mmol/L (98-107); Estimated Creatinine Clearance 61 ml/min; Glucose 104 mg/dl (70-99); Magnesium 1.9 mg/dl (1.6-2.3); Potassium 4.7 mmol/L (3.5-5.1); Sodium 142 mmol/L (135-145); Total Bilirubin 1.2 mg/dl (0.2-1.3); Total Protein 5.5 g/dl (6.3-8.2); eGFR > 60.00
--- NOTE | 2024-05-15 07:30 | W.PN.HOSP.TC ---
Today's Communication/Plan
-
cont bowel regimen
abx
eventual trial off medsitter
discharge planning SNF rehab
Assessment / Plan
Assessment / Plan
Physical Exam
General: Well Developed, Well Nourished and No Apparent Distress
HEENT: NormoCephalic, Moist mucous membranes and Atraumatic
Respiratory: Clear
Cardiac: S1/S2 and Regular Rhythm; No Murmur or Rub
GI: Soft, Non Distended, Normal Bowel Sounds nontender; No Organomegaly
Musculoskeletal: No Clubbing, No Cyanosis and No Edema
Skin: No Rash
Neuro: Nonfocal/grossly intact; lethargic
# Septic Shock secondary to #emphysematous cystitis and #bacteremia
-Shock resolved
-Klebsiella pneumoniae
-f/u repeat blood cultures
-Zosyn - switched to ceftriaxone later switched to cefuroxime for total 14 day abx course - 05/21/24.
-Urology consulted; s/p CBI
-Maintain MAP >65, wean norepinephrine as tolerated
-ID consulted
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
-Hemoglobin dropped from 9.3 to 6.2 within 3 hours
-Kcentra given
-s/p 2 units of blood
� OK to restart Eliquis as per urology 05/12, probably will have hematuria - monitor CBC.
� CBI stopped 05/10, pope removal however patient failed trial of void, pope since resarted
� Urology on board
� Trend CBC, ensure hemoglobin remains greater than 7
#JONELLE on CKD
� Most likely prerenal secondary to hypotension versus septic ATN
� Continue resuscitation and monitor
-resolved
#Hypernatremia
� possibly 2/2 to minimal po intake with sepsis
-LR bolus today and monitor
-trend
-improved
#Hypokalemia
#Hypomagnesemia
-monitor and replete
Dementia with behavioral disturbances
-Seroquel
-Patient spouse states that patient is close to normal mental status currently
Paroxysmal atrial fibrillation
Bradycardia - most likely 2/2 to sepsis
-Resume Eliquis and monitor for bleeding 05/12
-decrease atenolol to 12.5 mg daily - dc on this dose
-cardiology consulted
-tele
-echo - no acute findings, mild lvh
Essential hypertension
-lisinopril
-atenolol
Hyperlipidemia
Type 2 diabetes
-Increase lantus, aspart
-Insulin sliding scale
-Hold metformin
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
-Recommend outpatient workup with dedicated MRI/MRCP abdomen without and with gadolinium contrast.
Chronic kidney disease
-Renal function baseline
Anxiety/depression
-Continue as needed clonazepam
Constipation
-scheduled bowel regimen started, cont
Stage 1 sacrum pressure injury
cont local wound care
DNR/DNI
DVT prophylaxis�Eliquis
Regular diet
discussed with patient's son IVELISSE Perez
I spent a total of 50 minutes with the patient or on the floor. More than 50% of this time involved counseling and coordination of care.
Anticipated Discharge: 24 - 48 hours
Subjective/Interval History
-
Date of Service: May 15, 2024
calm. Pleasantly confused. Constipation persists. Medsitter present
Objective Data
-
Labs:
Laboratory Results
05/15/24
05:14
WBC 5.5
Hgb 11.0 L
Hct 32.2 L
Plt Count 140
Sodium 142
Potassium 4.7
Chloride 104
Carbon Dioxide 31 H
BUN 14
Creatinine 0.7
Glucose 104 H
Calcium 9.8
Total Bilirubin 1.2
AST 26
ALT 19
Alkaline Phosphatase 130 H
Vital Signs:
Vital Signs
Temp Pulse Resp BP Pulse Ox
97.8 F 80 20 149/72 95
05/14/24 23:30 05/14/24 23:30 05/14/24 23:30 05/14/24 23:30 05/14/24 23:30
I&O
05/14/24 05/15/24 05/16/24
06:59 06:59 06:59
Intake Total 420 / 420 740 / 740
Output Total 600 / 600 2300 / 2300
Balance -180 / -180 -1560 / -1560
[2024-05-15 07:43] VITALS: BP 156/119
[2024-05-15 08:12] LABS: Glucose - Point of Care 138 mg/dl (70-99)
[2024-05-15] MEDS: CEFTIN 500 MG PO ×2 (08:27→20:11)
[2024-05-15] MEDS: NOVOLOG FLEXPEN-MODERATE RESISTANCE SC ×2 (08:27→12:38)
[2024-05-15] MEDS: ZESTRIL 5 MG PO (08:28)
[2024-05-15] MEDS: TENORMIN 12.5 MG PO (08:28)
[2024-05-15] MEDS: SEROQUEL 12.5 MG PO (08:28)
[2024-05-15] MEDS: SENOKOT-S 1 TABLET PO ×2 (08:29→20:11)
[2024-05-15] MEDS: NOVOLOG FLEXPEN 4 UNITS SC ×2 (08:29→17:42)
[2024-05-15] MEDS: MIRALAX 17 GRAMS PO (08:29)
[2024-05-15] MEDS: ELIQUIS 5 MG PO ×2 (08:29→20:11)
--- NOTE | 2024-05-15 11:12 | CM ---
Addendum entered by Josee Fiore RN 05/15/24 17:21:
Met with bed side. Pt remains on med sitter. Will need to be off med sitter 24 hours to go to SNF.
Original Note:
Contacted Molly at [facility] . Bed is being held by son .
Pt accepted back to [facility] at [facility].
[facility]
report [phone]
fax [phone]
PLAN To [facility] when medically ready for [facility].
[2024-05-15 11:34] VITALS: BP 162/101
[2024-05-15 11:51] LABS: Glucose - Point of Care 122 mg/dl (70-99)
--- NOTE | 2024-05-15 13:16 | PN.CDI ---
CDI
- -
CDI:
Physician Documentation Request
Admit Date: 05/07/24 22:18
Dear Doctor Diego,
Please review the following and provide your response in the progress notes.
Clinical Indicators:
- 05/15 RN skin assessment indicates Stage 1 sacrum pressure injury
Physician documentation of the type and location of wounds is required for compliant documentation. Based on the above clinical findings and your assessment, please provide the following in your progress note:
1. Location of the ulcer/wound, including laterality.
2. Type (etiology) of ulcer/wound:
- Diabetic ulcer
- Arterial (ischemic) ulcer
- Traumatic wound
- Venous stasis ulcer
- Pressure (decubitus) ulcer
- Non-healing surgical wound
- Other
- Unable to determine
Use of terms such as suspected, likely, concern for, or probable (associated with a specific diagnosis that is being evaluated, monitored, or treated as if it exists) are acceptable and can be coded in the inpatient setting, when documented at the
time of discharge.
Thank you,
Tenzin Hill RN
CDI Specialist
Please use your independent medical judgment in providing your response.
*Source: National Pressure Ulcer Advisory Panel (NPUAP)
[2024-05-15] MEDS: NOVOLOG FLEXPEN SC (13:35)
[2024-05-15 15:30] VITALS: BP 149/74
[2024-05-15 16:47] LABS: Glucose - Point of Care 223 mg/dl (70-99)
[2024-05-15] MEDS: NOVOLOG FLEXPEN-MODERATE RESISTANCE 3 UNITS SC (17:43)
[2024-05-15 22:17] LABS: Glucose - Point of Care 169 mg/dl (70-99)
[2024-05-15] MEDS: LIPITOR 40 MG PO (22:18)
[2024-05-15] MEDS: LANTUS 0.2 UNITS SC (22:18)
[2024-05-15] MEDS: PROTONIX 20 MG PO (22:19)
[2024-05-15] MEDS: SEROQUEL 25 MG PO (22:19)
[2024-05-15 23:36] VITALS: BP 105/47
--- NOTE | 2024-05-16 04:01 | DOWNTIME ---
There was a [employer] for [employer] Client Tank Setter Downtime on 05/16/2024 from 0100 to 05/16/2024 at 0300. Downtime documentation of patient's care, including medication administrations, has been reconciled in the electronic record per guidelines. Refer to the
patient's paper chart under the miscellaneous tab to see printed paper medication records and downtime forms.
[2024-05-16 07:50] VITALS: BP 149/74
[2024-05-16 07:58] LABS: Hematocrit 32.5 % (37.0-47.0); Hemoglobin 11.3 g/dL (12.0-16.0); Mean Corp Hgb Conc. 34.8 g/dL (33.0-37.0); Mean Corpuscular Hgb 31.1 pg (27.0-31.0); Mean Corpuscular Volume 89.5 fL (81.0-99.0); Mean Platelet Volume 9.8 fL (7.4-10.4); Platelet Count 138 10^3/uL (130-400); Red Blood Cell Count 3.63 10^6/uL (4.20-5.40); Red Cell Dist. Width 15.9 % (11.5-14.5); White Blood Cell Count 4.4 10^3/uL (4.8-10.8)
--- NOTE | 2024-05-16 08:07 | W.PN.HOSP.TC ---
Today's Communication/Plan
-
Bladder scan prn
cont bowel regimen, once suppository
abx
Assessment / Plan
Assessment / Plan
Physical Exam
General: Well Developed, Well Nourished and No Apparent Distress
HEENT: NormoCephalic, Moist mucous membranes and Atraumatic
Respiratory: Clear
Cardiac: S1/S2 and Regular Rhythm; No Murmur or Rub
GI: Soft, Non Distended, Normal Bowel Sounds nontender; No Organomegaly
Musculoskeletal: No Clubbing, No Cyanosis and No Edema
Skin: No Rash
Neuro: Nonfocal/grossly intact; lethargic
# Septic Shock secondary to #emphysematous cystitis and #bacteremia
-Shock resolved
-Klebsiella pneumoniae
-f/u repeat blood cultures
-Zosyn - switched to ceftriaxone later switched to cefuroxime for total 14 day abx course - 05/21/24.
-Urology consulted; s/p CBI
-Maintain MAP >65, wean norepinephrine as tolerated
-ID consulted
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
-Hemoglobin dropped from 9.3 to 6.2 within 3 hours
-Kcentra given
-s/p 2 units of blood
� OK to restart Eliquis as per urology 05/12, probably will have hematuria - monitor CBC.
� CBI stopped 05/10, pope removal however patient failed trial of void, pope since restarted patient however self removed 05/16 cont bladder scan prn for now
� Urology eval appreciated
� Trend CBC, ensure hemoglobin remains greater than 7
#JONELLE on CKD
� Most likely prerenal secondary to hypotension versus septic ATN
� Continue resuscitation and monitor
-resolved
#Hypernatremia
� possibly 2/2 to minimal po intake with sepsis
-LR bolus today and monitor
-trend
-improved
#Hypokalemia
#Hypomagnesemia
-monitor and replete
Dementia with behavioral disturbances
-Seroquel
-clonazepam prn
Paroxysmal atrial fibrillation
Bradycardia - most likely 2/2 to sepsis
-Resume Eliquis and monitor for bleeding 05/12
-decrease atenolol to 12.5 mg daily - dc on this dose
-cardiology consulted
-tele
-echo - no acute findings, mild lvh
Essential hypertension
-lisinopril
-atenolol
Hyperlipidemia
Type 2 diabetes
-Increase lantus, aspart
-Insulin sliding scale
-Hold metformin
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
-Recommend outpatient workup with dedicated MRI/MRCP abdomen without and with gadolinium contrast.
Chronic kidney disease
-Renal function baseline
Anxiety/depression
-Continue as needed clonazepam
Constipation
-scheduled bowel regimen started, cont
-once bisacodyl suppository
Stage 1 sacrum pressure injury
cont local wound care
DNR/DNI
DVT prophylaxis�Eliquis
Regular diet
discussed with patient's son IVELISSE Perez
I spent a total of 50 minutes with the patient or on the floor. More than 50% of this time involved counseling and coordination of care.
Anticipated Discharge: 24 - 48 hours
Subjective/Interval History
-
Date of Service: May 16, 2024
Remains confused but cooperative. Patient had removed her own Pope earlier in the day. Constipation persists.
Objective Data
-
Labs:
Laboratory Results
05/16/24
07:20
WBC 4.4 L
Hgb 11.3 L
Hct 32.5 L
Plt Count 138
Sodium Pending
Potassium Pending
Chloride Pending
Carbon Dioxide Pending
BUN Pending
Creatinine Pending
Glucose Pending
Calcium Pending
Total Bilirubin Pending
AST Pending
ALT Pending
Alkaline Phosphatase Pending
Vital Signs:
Vital Signs
Temp Pulse Resp BP Pulse Ox
98.1 F 82 17 149/74 97
05/16/24 07:50 05/16/24 07:50 05/16/24 07:50 05/16/24 07:50 05/16/24 07:50
I&O
05/15/24 05/16/24 05/17/24
06:59 06:59 06:59
Intake Total 740 / 740 290 / 290
Output Total 2300 / 2300 750 / 750
Balance -1560 / -1560 -460 / -460
[2024-05-16 08:19] LABS: ALT (SGPT) 19 U/L (0-35); AST (SGOT) 26 U/L (14-36); Albumin 3.2 g/dl (3.5-5.0); Alkaline Phosphatase 131 U/L (38-126); Blood Urea Nitrogen 14 mg/dl (7-17); Calcium 9.8 mg/dl (8.4-10.2); Carbon Dioxide 30 mmol/L (22-30); Chloride 103 mmol/L (98-107); Estimated Creatinine Clearance 53 ml/min; Glucose 128 mg/dl (70-99); Magnesium 1.8 mg/dl (1.6-2.3); Phosphorus 3.2 mg/dl (2.5-4.5); Potassium 3.8 mmol/L (3.5-5.1); Sodium 142 mmol/L (135-145); Total Bilirubin 1.3 mg/dl (0.2-1.3); Total Protein 5.7 g/dl (6.3-8.2); eGFR > 60.00
[2024-05-16] MEDS: CEFTIN 500 MG PO ×2 (09:28→20:22)
[2024-05-16] MEDS: ZESTRIL 5 MG PO (09:28)
[2024-05-16] MEDS: ELIQUIS 5 MG PO ×2 (09:29→20:22)
[2024-05-16] MEDS: SENOKOT-S 1 TABLET PO ×2 (09:29→20:22)
[2024-05-16] MEDS: TENORMIN 12.5 MG PO (09:29)
[2024-05-16] MEDS: SEROQUEL 12.5 MG PO (09:29)
[2024-05-16] MEDS: MIRALAX 17 GRAMS PO (09:30)
[2024-05-16 09:31] LABS: Glucose - Point of Care 168 mg/dl (70-99)
[2024-05-16] MEDS: NOVOLOG FLEXPEN 4 UNITS SC ×3 (09:35→17:17)
[2024-05-16] MEDS: NOVOLOG FLEXPEN-MODERATE RESISTANCE 1 UNITS SC (09:35)
[2024-05-16 11:17] LABS: Glucose - Point of Care 205 mg/dl (70-99)
[2024-05-16] MEDS: NOVOLOG FLEXPEN-MODERATE RESISTANCE 3 UNITS SC (12:56)
[2024-05-16 15:15] VITALS: BP 110/56
[2024-05-16 16:40] LABS: Glucose - Point of Care 95 mg/dl (70-99)
--- NOTE | 2024-05-16 16:53 | CM ---
Medsitter removed today.
asked if SNF could st cath pt every 6 hours as needed. LM with Molly at [facility].
Bed is being held .
Pt accepted back to [facility] at [facility].
[facility]
report [phone]
fax [phone]
PLAN To [facility] when medically ready for dc.
[2024-05-16] MEDS: NOVOLOG FLEXPEN-MODERATE RESISTANCE SC (17:16)
[2024-05-16] MEDS: DULCOLAX 10 MG RECTAL (17:16)
--- NOTE | 2024-05-16 17:23 | PTCARENOTE ---
Pt pulled pope catheter out this morning with balloon fully inflated. MD made aware- bladder scan and straight cath per policy. Med sitter removed from room around 12pm. OOB to chair while working with PT, with chair alarm in place. Bladder scanned
at 1600 for 402, straight cathed and 400 cc output of clear yellow urine. Pt continues with bed alarm. Was fed meals during shift. Call haed within reach.
[2024-05-16 21:24] LABS: Glucose - Point of Care 108 mg/dl (70-99)
[2024-05-16] MEDS: SEROQUEL 25 MG PO (21:49)
[2024-05-16] MEDS: LIPITOR 40 MG PO (21:49)
[2024-05-16] MEDS: LANTUS 0.2 UNITS SC (21:49)
[2024-05-16] MEDS: PROTONIX 20 MG PO (21:49)
[2024-05-16 23:26] VITALS: BP 121/67
[2024-05-17] MEDS: KLONOPIN 0.5 MG PO (04:29)
[2024-05-17 06:22] LABS: Hematocrit 28.4 % (37.0-47.0); Hemoglobin 9.7 g/dL (12.0-16.0); Mean Corp Hgb Conc. 34.2 g/dL (33.0-37.0); Mean Corpuscular Hgb 30.8 pg (27.0-31.0); Mean Corpuscular Volume 90.2 fL (81.0-99.0); Mean Platelet Volume 10.3 fL (7.4-10.4); Platelet Count 127 10^3/uL (130-400); Red Blood Cell Count 3.15 10^6/uL (4.20-5.40); Red Cell Dist. Width 16.1 % (11.5-14.5); White Blood Cell Count 4.4 10^3/uL (4.8-10.8)
[2024-05-17 06:53] LABS: ALT (SGPT) 18 U/L (0-35); AST (SGOT) 25 U/L (14-36); Albumin 2.8 g/dl (3.5-5.0); Alkaline Phosphatase 105 U/L (38-126); Blood Urea Nitrogen 19 mg/dl (7-17); Calcium 9.7 mg/dl (8.4-10.2); Carbon Dioxide 28 mmol/L (22-30); Chloride 103 mmol/L (98-107); Estimated Creatinine Clearance 53 ml/min; Glucose 134 mg/dl (70-99); Magnesium 1.7 mg/dl (1.6-2.3); Phosphorus 3.4 mg/dl (2.5-4.5); Potassium 3.7 mmol/L (3.5-5.1); Sodium 140 mmol/L (135-145); Total Bilirubin 1.1 mg/dl (0.2-1.3); Total Protein 5.2 g/dl (6.3-8.2); eGFR > 60.00
--- NOTE | 2024-05-17 07:32 | W.PN.HOSP.TC ---
Today's Communication/Plan
-
bladder scan straight cath prn
cont bowel regimen
discharge planning SNF rehab
Assessment / Plan
Assessment / Plan
Physical Exam
General: Well Developed, Well Nourished and No Apparent Distress
HEENT: NormoCephalic, Moist mucous membranes and Atraumatic
Respiratory: Clear
Cardiac: S1/S2 and Regular Rhythm; No Murmur or Rub
GI: Soft, Non Distended, Normal Bowel Sounds nontender; No Organomegaly
Musculoskeletal: No Clubbing, No Cyanosis and No Edema
Skin: No Rash
Neuro: Nonfocal/grossly intact; lethargic
# Septic Shock secondary to #emphysematous cystitis and #bacteremia
-Shock resolved
-Klebsiella pneumoniae
-f/u repeat blood cultures
-Zosyn - switched to ceftriaxone later switched to cefuroxime for total 14 day abx course - 05/21/24.
-Urology consulted; s/p CBI
-Maintain MAP >65, wean norepinephrine as tolerated
-ID consult appreciated
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
-Hemoglobin dropped from 9.3 to 6.2 within 3 hours
-Kcentra given
-s/p 2 units of blood
� OK to restart Eliquis as per urology 05/12, probably will have hematuria - monitor CBC.
� CBI stopped 05/10, pope removal however patient failed trial of void, pope since restarted patient however self removed 05/16 cont bladder scan prn for now
� Urology eval appreciated
� Trend CBC, ensure hemoglobin remains greater than 7
#JONELLE on CKD
� Most likely prerenal secondary to hypotension versus septic ATN
� Continue resuscitation and monitor
-resolved
#Hypernatremia
� possibly 2/2 to minimal po intake with sepsis
-LR bolus today and monitor
-trend
-improved
#Hypokalemia
#Hypomagnesemia
-monitor and replete
Dementia with behavioral disturbances
-Seroquel
-clonazepam prn
Paroxysmal atrial fibrillation
Bradycardia - most likely 2/2 to sepsis
-Resume Eliquis and monitor for bleeding 05/12
-decrease atenolol to 12.5 mg daily - dc on this dose
-cardiology consulted
-tele
-echo - no acute findings, mild lvh
Essential hypertension
-lisinopril
-atenolol
Hyperlipidemia
Type 2 diabetes
-Increase lantus, aspart
-Insulin sliding scale
-Hold metformin
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
-Recommend outpatient workup with dedicated MRI/MRCP abdomen without and with gadolinium contrast.
Chronic kidney disease
-Renal function baseline
Anxiety/depression
-Continue as needed clonazepam
Constipation
-scheduled bowel regimen started, cont
-once bisacodyl suppository
-constipation eventually resolved with milk and molasses enema
Stage 1 sacrum pressure injury
cont local wound care
DNR/DNI
DVT prophylaxis�Eliquis
Regular diet
discussed with patient's son IVELISSE Perez
I spent a total of 50 minutes with the patient or on the floor. More than 50% of this time involved counseling and coordination of care.
Anticipated Discharge: Within 24 hours
Subjective/Interval History
-
Date of Service: May 17, 2024
Remains confused though cooperative.
Objective Data
-
Labs:
Laboratory Results
05/17/24
05:39
WBC 4.4 L
Hgb 9.7 L
Hct 28.4 L
Plt Count 127 L
Sodium 140
Potassium 3.7
Chloride 103
Carbon Dioxide 28
BUN 19 H
Creatinine 0.8
Glucose 134 H
Calcium 9.7
Total Bilirubin 1.1
AST 25
ALT 18
Alkaline Phosphatase 105
Vital Signs:
Vital Signs
Temp Pulse Resp BP Pulse Ox
98.1 F 76 18 121/67 97
05/16/24 23:26 05/16/24 23:26 05/16/24 23:26 05/16/24 23:26 05/16/24 23:26
I&O
05/16/24 05/17/24 05/18/24
06:59 06:59 06:59
Intake Total 290 / 290 290 / 290
Output Total 750 / 750 750 / 750
Balance -460 / -460 -460 / -460
[2024-05-17 07:38] VITALS: BP 123/50
[2024-05-17] MEDS: SENOKOT-S 1 TABLET PO ×2 (08:16→21:40)
[2024-05-17 08:19] LABS: Glucose - Point of Care 116 mg/dl (70-99)
[2024-05-17] MEDS: CEFTIN 500 MG PO ×2 (08:19→21:40)
[2024-05-17] MEDS: ELIQUIS 5 MG PO ×2 (08:20→21:40)
[2024-05-17] MEDS: MIRALAX 17 GRAMS PO (08:21)
[2024-05-17] MEDS: ZESTRIL 5 MG PO (08:22)
[2024-05-17] MEDS: TENORMIN 12.5 MG PO (08:23)
[2024-05-17] MEDS: SEROQUEL 12.5 MG PO (08:27)
[2024-05-17] MEDS: NOVOLOG FLEXPEN 4 UNITS SC ×3 (08:40→17:24)
[2024-05-17] MEDS: NOVOLOG FLEXPEN-MODERATE RESISTANCE SC ×2 (08:41→17:24)
[2024-05-17 11:40] LABS: Glucose - Point of Care 163 mg/dl (70-99)
[2024-05-17 12:51] LABS: Iron 84 ug/dl (37-170)
[2024-05-17 13:00] LABS: Percent Saturation 37 % (20-50); Total Iron Binding Capacity 223 ug/dl (265-497)
[2024-05-17] MEDS: NOVOLOG FLEXPEN-MODERATE RESISTANCE 1 UNITS SC (13:13)
[2024-05-17 13:21] LABS: TSH Reflex To Free T4 1.68 uIU/ml (0.47-4.68)
[2024-05-17 13:56] LABS: Folate 14.1 ng/ml (2.76-20); Vitamin B12 881 pg/ml (239-931)
[2024-05-17 15:54] VITALS: BP 147/80
--- NOTE | 2024-05-17 16:44 | W.PN.URO.CBU ---
Today's Communication / Plan
-
try and encourafe] fluids as pt may need large bladder volume to be able to void but if distened pain then pope with at least 30cc balloon such thatshe may not pull out
Assessment / Plan
-
urine clear BUT CHIEF CREDIT OFFICER VOID RECHECK IRINE 8PM IF NO VOID OR PVR OVER 499CC THEN PLACE PERMANNT POPE IE NO STRIAGT CATH
Diagnosis
-
Date of Service: May 17, 2024
-
Patient Diagnosis:
Post Op Day:
Patient Diagnosis:
Post Op Day:
Patient Diagnosis:
Post Op Day:
Patient Diagnosis:
Post Op Day:
Patient Diagnosis:
Post Op Day:
Patient Diagnosis:hemorrhagi c emphysematous cytitis
Post Op Day:
Subjective
-
possible urinary retrtbion did have [facility]rosepsis [facility] pope now pulled foleyut
Objective
-
Vital Signs
Temp Pulse Resp BP Pulse Ox
98.3 F 82 16 147/80 97
05/17/24 15:54 05/17/24 15:54 05/17/24 15:54 05/17/24 15:54 05/17/24 15:54
Intake and Output
05/16/24 05/17/24 05/18/24
06:59 06:59 06:59
Intake Total 290 / 290 290 / 290
Output Total 750 / 750 750 / 750 500 / 500
Balance -460 / -460 -460 / -460 -500 / -500
Intake:
Oral fluids 290 / 290 290 / 290
Output:
Urine, Pope 750 / 750
Urine, Voided 300 / 300
Straight cath output 450 / 450 500 / 500
Laboratory Results
05/17/24 05:39
05/17/24 05:39
Review of Systems
-
Unable to obtain full review of systems at this time due to: Dementia
Physical Exam
-
General - well developed, well nourished, no acute distress
Chest - clear bilaterally
Abdomen - soft, non-tender, positive bowel sounds, no CVAT, no incisional pain or distention
Genitalia - normal
Rectal - normal
Skin - warm & dry with no rash
Neuro - AOx3, no motor deficits
Extremities - no clubbing, no cyanosis, no edema
Incision - clean, dry
Dressing - clean, dry, intact
Care Review
Data Reviewed
Discussed with: Nursing
[2024-05-17 16:50] LABS: Glucose - Point of Care 95 mg/dl (70-99)
--- NOTE | 2024-05-17 17:44 | CM ---
Medsitter remains off.
Molly [facility] said they could st cath pt every 6 hours as needed.
[facility] is being held .
[facility] to [facility]
report [phone]
fax [phone]
PLAN To [facility] when medically ready for dc.
[2024-05-17] MEDS: LIPITOR 40 MG PO (21:39)
[2024-05-17] MEDS: SEROQUEL 25 MG PO (21:39)
[2024-05-17] MEDS: PROTONIX 20 MG PO (21:39)
[2024-05-17 21:47] LABS: Glucose - Point of Care 128 mg/dl (70-99)
[2024-05-17] MEDS: LANTUS 0.2 UNITS SC (21:48)
[2024-05-17 23:07] VITALS: BP 120/56
[2024-05-18 06:03] LABS: Hematocrit 28.8 % (37.0-47.0); Hemoglobin 9.7 g/dL (12.0-16.0); Mean Corp Hgb Conc. 33.7 g/dL (33.0-37.0); Mean Corpuscular Hgb 30.9 pg (27.0-31.0); Mean Corpuscular Volume 91.7 fL (81.0-99.0); Mean Platelet Volume 10.3 fL (7.4-10.4); Platelet Count 129 10^3/uL (130-400); Red Blood Cell Count 3.14 10^6/uL (4.20-5.40); Red Cell Dist. Width 16.6 % (11.5-14.5); White Blood Cell Count 4.4 10^3/uL (4.8-10.8)
[2024-05-18 06:13] LABS: ALT (SGPT) 17 U/L (0-35); AST (SGOT) 25 U/L (14-36); Albumin 2.9 g/dl (3.5-5.0); Alkaline Phosphatase 105 U/L (38-126); Blood Urea Nitrogen 20 mg/dl (7-17); Calcium 9.7 mg/dl (8.4-10.2); Carbon Dioxide 29 mmol/L (22-30); Chloride 104 mmol/L (98-107); Estimated Creatinine Clearance 47 ml/min; Glucose 106 mg/dl (70-99); Magnesium 1.9 mg/dl (1.6-2.3); Phosphorus 3.5 mg/dl (2.5-4.5); Potassium 3.7 mmol/L (3.5-5.1); Sodium 144 mmol/L (135-145); Total Bilirubin 0.9 mg/dl (0.2-1.3); Total Protein 5.3 g/dl (6.3-8.2); eGFR > 60.00
--- NOTE | 2024-05-18 07:32 | W.PN.HOSP.TC ---
Addendum entered and electronically signed by Sadie Cortez MD 05/18/24 12:59:
JONELLE resolved
Overall stable kidney function Cr baseline 0.7-0.9
chronic kidney disease appears to be less likely at this time, ruled out
Addendum entered and electronically signed by Sadie Cortez MD 05/18/24 12:43:
Physical Exam
General: Well Developed, Well Nourished and No Apparent Distress
HEENT: NormoCephalic, Moist mucous membranes and Atraumatic
Respiratory: Clear
Cardiac: S1/S2 and Regular Rhythm; No Murmur or Rub
GI: Soft, Non Distended, Normal Bowel Sounds nontender; No Organomegaly
Musculoskeletal: No Clubbing, No Cyanosis and No Edema
Skin: No Rash
Neuro: Awake alert conversant but confused sometimes tangential speech
correction to physical exam noted below
Original Note:
Today's Communication/Plan
-
discharge
Assessment / Plan
Assessment / Plan
Physical Exam
General: Well Developed, Well Nourished and No Apparent Distress
HEENT: NormoCephalic, Moist mucous membranes and Atraumatic
Respiratory: Clear
Cardiac: S1/S2 and Regular Rhythm; No Murmur or Rub
GI: Soft, Non Distended, Normal Bowel Sounds nontender; No Organomegaly
Musculoskeletal: No Clubbing, No Cyanosis and No Edema
Skin: No Rash
Neuro: Nonfocal/grossly intact; lethargic
# Septic Shock secondary to #emphysematous cystitis and #bacteremia
-Shock resolved
-Klebsiella pneumoniae
-f/u repeat blood cultures
-Zosyn - switched to ceftriaxone later switched to cefuroxime for total 14 day abx course - 05/21/24.
-Urology consulted; s/p CBI
-Maintain MAP >65, wean norepinephrine as tolerated
-ID consult appreciated
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
-Hemoglobin dropped from 9.3 to 6.2 within 3 hours
-Kcentra given
-s/p 2 units of blood
� OK to restart Eliquis as per urology 05/12, probably will have hematuria - monitor CBC.
� CBI stopped 05/10, pope removal however patient failed trial of void, pope since restarted patient however self removed 05/16 cont bladder scan prn for now
� Urology eval appreciated
-Discussed with Urology, given concern Pope will likely exacerbate patient's dementia confusion agitation (as it has prior to patient's self-removal) patient more likely to benefit from intermittent straight cath Q8H instead.
� H&H remains stable consistently >9 since transfusion
#JONELLE on CKD
� Most likely prerenal secondary to hypotension versus septic ATN
� Continue resuscitation and monitor
-resolved
#Hypernatremia
� possibly 2/2 to minimal po intake with sepsis
-LR bolus today and monitor
-trend
-improved
#Hypokalemia
#Hypomagnesemia
-monitor and replete
Dementia with behavioral disturbances
-Seroquel
-clonazepam prn
Paroxysmal atrial fibrillation
Bradycardia - most likely 2/2 to sepsis
-Resume Eliquis and monitor for bleeding 05/12
-decrease atenolol to 12.5 mg daily - dc on this dose
-cardiology consult appreciated
-tele
-echo - no acute findings, mild lvh
Essential hypertension
-lisinopril
-atenolol
Hyperlipidemia
Type 2 diabetes
-cont lantus, aspart
-Insulin sliding scale
-Hold metformin
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
-Recommend outpatient workup with dedicated MRI/MRCP abdomen without and with gadolinium contrast.
Chronic kidney disease
-Renal function baseline
Anxiety/depression
-Continue as needed clonazepam
Constipation
-scheduled bowel regimen started, cont
-once bisacodyl suppository
-constipation eventually resolved with milk and molasses enema
Stage 1 sacrum pressure injury
cont local wound care
DNR/DNI
DVT prophylaxis�Eliquis
Regular diet
Medically stable for discharge SNF rehab with outpatient follow up recommendations.
discussed with patient's son IVELISSE Perez
Total Time Preparing Discharge ___50____ minutes including examination of the patient, summary of the hospital stay, instructions for continuing care to all relevant caregivers; and preparation of discharge records, prescriptions, and referral
forms if necessary.
Anticipated Discharge: Today
Subjective/Interval History
-
Date of Service: May 18, 2024
Seen and examined at bedside in no acute distress resting comfortably in bed. Remains confused but cooperative.
Objective Data
-
Labs:
Laboratory Results
05/18/24
05:07
WBC 4.4 L
Hgb 9.7 L
Hct 28.8 L
Plt Count 129 L
Sodium 144
Potassium 3.7
Chloride 104
Carbon Dioxide 29
BUN 20 H
Creatinine 0.9
Glucose 106 H
Calcium 9.7
Total Bilirubin 0.9
AST 25
ALT 17
Alkaline Phosphatase 105
Vital Signs:
Vital Signs
Temp Pulse Resp BP Pulse Ox
98.4 F 76 16 120/56 96
05/17/24 23:07 05/17/24 23:07 05/17/24 23:07 05/17/24 23:07 05/17/24 23:07
I&O
05/17/24 05/18/24 05/19/24
06:59 06:59 06:59
Intake Total 290 / 290
Output Total 750 / 750 910 / 910
Balance -460 / -460 - / -
[2024-05-18 07:48] VITALS: BP 168/71
[2024-05-18 07:57] LABS: Glucose - Point of Care 113 mg/dl (70-99)
[2024-05-18] MEDS: CEFTIN 500 MG PO (08:11)
[2024-05-18] MEDS: ELIQUIS 5 MG PO (08:11)
[2024-05-18] MEDS: TENORMIN 12.5 MG PO (08:11)
[2024-05-18] MEDS: THERAGRAN 1 TABLET PO (08:11)
[2024-05-18] MEDS: ZESTRIL 5 MG PO (08:12)
[2024-05-18] MEDS: SENOKOT-S 1 TABLET PO (08:12)
[2024-05-18] MEDS: SEROQUEL 12.5 MG PO (08:12)
[2024-05-18] MEDS: MIRALAX 17 GRAMS PO (08:13)
[2024-05-18] MEDS: NOVOLOG FLEXPEN 4 UNITS SC ×2 (08:33→12:27)
[2024-05-18] MEDS: NOVOLOG FLEXPEN-MODERATE RESISTANCE SC ×2 (08:33→12:27)
--- NOTE | 2024-05-18 08:41 | W.PN.URO.CBU ---
Today's Communication / Plan
-
place pope ise 30 cc ballooon mbur instill 50cc in balloon
Assessment / Plan
-
urine clear but not voiding plasc pope but 50 cc in ballooon
Diagnosis
-
Date of Service: May 18, 2024
-
Patient Diagnosis:
Post Op Day:
Patient Diagnosis:
Post Op Day:
Patient Diagnosis:
Post Op Day:
Patient Diagnosis:
Post Op Day:
Patient Diagnosis:
Post Op Day:
Patient Diagnosis:
Post Op Day:
Patient Diagnosis:hemorrhagi c emphysematous cytitis no w retntionand pulled foly out no void
Post Op Day:
Subjective
-
no void
Objective
-
Vital Signs
Temp Pulse Resp BP Pulse Ox
98.6 F 83 16 168/71 97
05/18/24 07:48 05/18/24 08:11 05/18/24 07:48 05/18/24 08:11 05/18/24 08:25
Intake and Output
05/17/24 05/18/24 05/19/24
06:59 06:59 06:59
Intake Total 290 / 290
Output Total 750 / 750 910 / 910
Balance -460 / -460 -910 / -910
Intake:
Oral fluids 290 / 290
Output:
Urine, Voided 300 / 300
Straight cath output 450 / 450 910 / 910
Other:
How many times incontinent 2
MODERATE amount urine
Laboratory Results
05/18/24 05:07
05/18/24 05:07
Review of Systems
-
: Difficulty Voiding
Physical Exam
-
General - well developed, well nourished, no acute distress
Chest - clear bilaterally
Abdomen - soft, non-tender, positive bowel sounds, no CVAT, no incisional pain or distention
Genitalia - normal
Rectal - normal
Skin - warm & dry with no rash
Neuro - AOx3, no motor deficits
Extremities - no clubbing, no cyanosis, no edema
Incision - clean, dry
Dressing - clean, dry, intact
Care Review
Data Reviewed
Discussed with: Nursing
[2024-05-18 12:04] LABS: Glucose - Point of Care 116 mg/dl (70-99)
--- NOTE | 2024-05-18 13:10 | CM ---
indicated pt ready for dc to SNF correction
[facility] said they can accept back and aware pt may need st cath pt every 8 hours as needed.
[facility] is being held .
IMM reviewed with POA son Chris he agrees with hi.
Pt accepted back to [facility] at hi.
[facility]
report [phone]
fax [phone]
PLAN To [facility] via ambulance
--- NOTE | 2024-05-18 13:29 | W.DCSUMMARY ---
Discharge Summary
Discharge Data
Date of Admission: 05/07/24
Date of Discharge: 05/18/24
-
Pending Results: No
Discharge Plan
-
Patient Disposition: Care Home/SNF
Discharge Diagnosis/Procedures: Septic Shock secondary to emphysematous cystitis and Bacteremia
Urinary Retention requires intermittent straight cath every 8 hours
Acute blood loss anemia secondary to emphysematous cystitis
Severe Sepsis Infection also likely contributed to Anemia
Acute Kidney Injury resolved
Hypernatremia resolved
Dementia with behavioral disturbances
Paroxysmal atrial fibrillation
Bradycardia resolved
Essential hypertension
Hyperlipidemia
Type 2 diabetes
Cystic pancreatic lesion measuring up to 2.0 cm
Anxiety/depression
Constipation
Stage 1 sacrum pressure injury
Condition: Fair
Diet: Diabetic, Carb Controlled
Additional Diets: soft bite size, 1:1 supervised feed
Activity: With assistance, As tolerated and With Walker
Driving Restrictions: No driving
Bathing Restrictions: None
Blood Work: Please repeat CBC and BMP with primary care provider in 1 week of discharge
Others Tests: Please repeat Chest X-ray with primary care provider in 1 month of discharge
Cystic pancreatic lesion measuring up to 2.0 cm, outpatient workup with dedicated MRI/MRCP abdomen without and with gadolinium contrast recommended with primary care provider in 1 month of discharge
Other Services: PT, OT and ST
Activity Restrictions/Additional Instructions:
Please follow up with primary care provider in 1 week of discharge and, in 2-4 weeks of discharge, Urology and Cardiology.
Atenolol has been reduced to 12.5 mg daily due to bradycardia
Cefuroxime has been prescribed to continue through 05/21 to complete treatment complicated urinary tract infection.
Scheduled laxative colace/senna has been prescribed due to constipation. Ok to convert to as needed or discontinue if bowel movements are regular.
To limit polypharmacy, as needed medications for anxiety/agitation has been consolidated to one prn Clonazepam order every 12 hours as needed (as needed seroquel discontinued, scheduled seroquel continues). This regimen has been sufficient during
stay.
Further it is recommended that patient have fingersticks before meal time, 3 times a day, and sugars continue to be treated according to home sliding scale regimen.
Please take medications as prescribed/recommended and follow up with primary care provider and/or other healthcare provider involved in patient's care for refills and/or further adjustment to your medication regimen as necessary.
Due to urinary retention, it is recommended to perform urinary straight cath every 8 hours. A Davis was attempted but patient ultimately did not tolerate- had worsening confusion agitation exacerbation dementia that lead to patient self-removing.
Referrals:
Roland Jeff MD [Active] - in two to four weeks
Mitul Tidwell DO [Active] - in two to four weeks
Jean Pierre Carroll MD [Family Provider] - in one week
Prescriptions:
New
cefuroxime axetil 500 mg Tablet
500 mg PO BID Qty: 7 0RF
Rx Instructions:
Last day of antibiotics 05/21. Stop antibiotics afterwards
sennosides-docusate sodium 8.6-50 mg Tablet
1 tab PO BID Qty: 30 0RF
Rx Instructions:
Hold if diarrhea. Ok to convert to as needed if bowel movements regular.
atenolol 25 mg Tablet
12.5 mg PO DAILY 30 Days Qty: 15 0RF
multivitamin with folic acid [Tab-A-Rommel] 400 mcg Tablet
1 tab PO DAILY 30 Days Qty: 30 0RF
Continued
atorvastatin [Lipitor] 40 mg Tablet
40 mg PO HS
lisinopril 5 mg Tablet
5 mg PO DAILY
Eliquis 5 mg Tablet
5 mg PO BID
bisacodyl 10 mg Suppository
10 mg KY [id number] PRN (Reason: constipation) Qty: 10 0RF
polyethylene glycol 3350 [HealthyLax] 17 gram Powder In Packet
17 g PO DAILYPRN PRN (Reason: constipation) Qty: 10 0RF
acetaminophen 325 mg Tablet
650 mg PO Q6HPRN MDD 3000 mg PRN (Reason: mild pain/temp >100)
insulin glargine 100 unit/mL Solution
20 unit SC HS
clonazepam 0.5 mg Tablet
0.5 mg PO [id number] PRN (Reason: anxiety)
pantoprazole 20 mg Tablet,Delayed Release (Dr/Ec)
20 mg PO HS
magnesium hydroxide [Milk of Magnesia] 400 mg/5 mL Suspension
30 ml PO [id number] PRN (Reason: no bm 2 days)
Fleet Enema 19-7 gram/118 mL Enema
118 ml KY DAILYPRN PRN (Reason: constipation, no bm 4 days)
metformin 500 mg tablet
500 mg PO BID
quetiapine 25 mg tablet
25 mg PO HS
quetiapine 25 mg tablet
12.5 mg PO DAILY
Changed
insulin lispro 100 unit/mL Insulin Pen
1 sliding scale dose SC AC Qty: 0 0RF
Patient Comments:
05/07/24: 201-250=2u,251-300=4u,301-350=6u,351-400=8u
Discontinued
atenolol 50 mg Tablet
50 mg PO DAILY
quetiapine 25 mg Tablet
12.5 mg PO Q6HPRN PRN (Reason: agitation) Qty: 10 0RF
insulin lispro [Humalog Pen] 100 unit/mL Insulin Pen
1 sliding scale dose SC AC
Patient Comments:
05/07/24: 100-199=4u,200-299=6u,300-399=8u
clonazepam 0.5 mg tablet
0.5 mg PO Q8HPRN PRN (Reason: Anxiety)
Discharge Orders:
Discharge Patient (As Directed); Ordered 05/18/24
Ordered By: Sadie Cortez
Discharge Date and Time
Print Language: BURKINAN
[2024-05-18 16:06] VITALS: BP 160/74
== END 2024-05-18 16:50 | DRG 871 ==
LOC: 3 WEST ACU 22:18
PROVIDERS: Internal Medicine; Nurse Practitioner Gerontology; Physician Assistant; ADMITTING PHYSICIAN Hospitalist; ATTENDING PHYSICIAN Internal Medicine; CONSULT PHYSICIAN Internal Medicine Critical Care Medicine; CONSULT PHYSICIAN Specialist; EMERGENCY PHYSICIAN Student in an Organized Health Care Education/Training Program; FAMILY PHYSICIAN Family Medicine; OTHER PHYSICIAN Internal Medicine Infectious Disease; OTHER PHYSICIAN Nuclear Medicine Nuclear Cardiology
PROC: 30283B1 Transfusion of Nonautologous 4-Factor Prothrombin Complex Concentrate into Vein, Percutaneous Approach (ICD-10-PCS; 2024-05-07)
PROC: 30233N1 Transfusion of Nonautologous Red Blood Cells into Peripheral Vein, Percutaneous Approach (ICD-10-PCS; 2024-05-07)
DX: A41.59 Other Gram-negative sepsis (principal); R65.21 Severe sepsis with septic shock; D62 Acute posthemorrhagic anemia; F03.C18 Unspecified dementia, severe, with other behavioral disturbance; F03.C4 Unspecified dementia, severe, with anxiety; F03.C3 Unspecified dementia, severe, with mood disturbance; J98.11 Atelectasis; N17.9 Acute kidney failure, unspecified; D68.32 Hemorrhagic disorder due to extrinsic circulating anticoagulants; K86.3 Pseudocyst of pancreas; N30.81 Other cystitis with hematuria; E87.0 Hyperosmolality and hypernatremia; N93.9 Abnormal uterine and vaginal bleeding, unspecified; E78.00 Pure hypercholesterolemia, unspecified; E11.22 Type 2 diabetes mellitus with diabetic chronic kidney disease; F32.A Depression, unspecified; D69.6 Thrombocytopenia, unspecified; G47.00 Insomnia, unspecified; E87.6 Hypokalemia; E83.42 Hypomagnesemia; K86.9 Disease of pancreas, unspecified; I10 Essential (primary) hypertension; K59.00 Constipation, unspecified; L89.151 Pressure ulcer of sacral region, stage 1; R00.1 Bradycardia, unspecified; L89.621 Pressure ulcer of left heel, stage 1; L89.611 Pressure ulcer of right heel, stage 1; K21.9 Gastro-esophageal reflux disease without esophagitis; I48.0 Paroxysmal atrial fibrillation; Z66 Do not resuscitate; Z79.01 Long term (current) use of anticoagulants; Z79.4 Long term (current) use of insulin; Z79.84 Long term (current) use of oral hypoglycemic drugs
CPT/HCPCS: 36430; 71045; 74174; 80048; 80053; 81003; 81015; 82607; 82746; 82805; 82962; 83540; 83550; 83735; 84100; 84443; 85014; 85018; 85025; 85027; 85610; 85730; 86850; 86900; 86901; 86920; 87040; 87070; 87077; 87086; 87149; 87186; 87205; 92526; 92610; 93005; 93306; 96361; 96374; 96375; 97116; 97163; 97167; 97530; 97535; 99291; J7168; P9016; Q9967

== ENCOUNTER → 2024-05-21 11:52 | Outpatient (REF) | payer OTHER, MEDICARE, BC, SELFPAY ==
[2024-05-21 12:25] LABS: Hematocrit 32.1 % (37.0-47.0); Hemoglobin 10.9 g/dL (12.0-16.0); Mean Corpuscular Hgb 32.5 pg (27.0-31.0); Mean Corpuscular Volume 95.8 fL (81.0-99.0); Mean Platelet Volume 10.4 fL (7.4-10.4); Platelet Count 139 10^3/uL (130-400); Red Blood Cell Count 3.35 10^6/uL (4.20-5.40); Red Cell Dist. Width 17.1 % (11.5-14.5); White Blood Cell Count 5.9 10^3/uL (4.8-10.8)
[2024-05-21 12:50] LABS: ALT (SGPT) 20 U/L (0-35); AST (SGOT) 27 U/L (14-36); Albumin 3.3 g/dl (3.5-5.0); Alkaline Phosphatase 118 U/L (38-126); Blood Urea Nitrogen 18 mg/dl (7-17); Calcium 9.9 mg/dl (8.4-10.2); Carbon Dioxide 31 mmol/L (22-30); Chloride 101 mmol/L (98-107); Glucose 127 mg/dl (70-99); Magnesium 1.7 mg/dl (1.6-2.3); Potassium 4.1 mmol/L (3.5-5.1); Sodium 141 mmol/L (135-145); Total Bilirubin 0.8 mg/dl (0.2-1.3); Total Protein 5.9 g/dl (6.3-8.2); eGFR > 60.00
== END ==
LOC: OLABWHC 11:52
PROVIDERS: ATTENDING PHYSICIAN Family Medicine
DX: N93.9 Abnormal uterine and vaginal bleeding, unspecified (principal); E11.9 Type 2 diabetes mellitus without complications; I48.91 Unspecified atrial fibrillation
CPT/HCPCS: 36415; 80053; 83735; 85027

== ENCOUNTER → 2024-05-28 14:54 | Outpatient (REF) | payer OTHER, MEDICARE, BC, SELFPAY ==
[2024-05-28 16:53] LABS: Hematocrit 29.3 % (37.0-47.0); Hemoglobin 9.8 g/dL (12.0-16.0); Mean Corp Hgb Conc. 33.4 g/dL (33.0-37.0); Mean Corpuscular Hgb 31.8 pg (27.0-31.0); Mean Corpuscular Volume 95.1 fL (81.0-99.0); Mean Platelet Volume 10.6 fL (7.4-10.4); Platelet Count 128 10^3/uL (130-400); Red Blood Cell Count 3.08 10^6/uL (4.20-5.40); Red Cell Dist. Width 18.5 % (11.5-14.5); White Blood Cell Count 3.7 10^3/uL (4.8-10.8)
[2024-05-28 17:29] LABS: ALT (SGPT) 19 U/L (0-35); AST (SGOT) 24 U/L (14-36); Albumin 3.2 g/dl (3.5-5.0); Alkaline Phosphatase 101 U/L (38-126); Blood Urea Nitrogen 17 mg/dl (7-17); Calcium 9.7 mg/dl (8.4-10.2); Carbon Dioxide 30 mmol/L (22-30); Chloride 105 mmol/L (98-107); Glucose 122 mg/dl (70-99); Potassium 3.6 mmol/L (3.5-5.1); Sodium 142 mmol/L (135-145); Total Bilirubin 0.5 mg/dl (0.2-1.3); Total Protein 5.6 g/dl (6.3-8.2); eGFR > 60.00
[2024-05-29 09:38] LABS: Glycohemoglobin (HgbA1c) 6.2 % (4.0-5.6)
== END ==
LOC: OLABWHC 14:54
PROVIDERS: ATTENDING PHYSICIAN Family Medicine
DX: R31.9 Hematuria, unspecified (principal); E11.9 Type 2 diabetes mellitus without complications
CPT/HCPCS: 36415; 80053; 83036; 85027